=== PATIENT | male | born 1960 | race American Indian/Alaskan Native ===

== ENCOUNTER 2017-04-15 06:40 | Day surgery (SDC) | payer BC ==
[2017-04-14 07:22] VITALS: BMI 28.2
[2017-04-15 07:23] LABS: HEMOGLOBIN 12.9 gm/dL (14.0-18.0); MEAN CELL VOLUME 82.6 fL (80.0-105.0); MEAN CORPUSCULAR HEMOGLOBIN 28.1 pg (25.0-35.0); MEAN PLATELET VOLUME 11.9 fl (7.0-11.0); PLATELET COUNT 143 10^3/uL (120.0-450.0); RBC 4.59 10^6/uL (3.5-6.1); RED CELL DISTRIBUTION WIDTH 14.8 % (11.5-14.5); WHITE BLOOD COUNT 3.4 10^3/ul (4.5-11.0)
[2017-04-15 07:41] LABS: BLOOD UREA NITROGEN 15 mg/dL (7-21); CALCIUM 9.1 mg/dL (8.4-10.5); GFR AFRICAN-AMERICAN > 60; GFR NON-AFRICAN AMERICAN > 60; HDL CHOLESTEROL 28 mg/dL (29-60); INR 1.04 (0.93-1.08); PARTIAL THROMBOPLASTIN TIME 32.2 Seconds (23.7-30.8); PROTHROMBIN TIME 11.2 Seconds (9.9-11.8)
[2017-04-15 07:52] LABS: LDL CHOLESTEROL 108 mg/dL (0-129)
[2017-04-15] MEDS ORDERED: Lidocaine 2% Inj (20ml) ONE (09:00)
[2017-04-15] MEDS ORDERED: Iodixanol 320 MG/ML 200 ML BOTTLE IV ONE (09:01)
[2017-04-15] MEDS ORDERED: Iodixanol 320 MG/ML 100 ML BOTTLE IV ONE (09:01)
[2017-04-15] MEDS ORDERED: Midazolam 2 MG/2 ML VIAL ONE ×2 (09:11→09:21)
[2017-04-15] MEDS ORDERED: Iohexol 350mgl/ml 50 ML ONE (09:34)
[2017-04-15 10:03] LABS: BAND 1 % (0-2); EOSINOPHIL 1 % (0.0-3.0); LARGE PLATELETS PRESENT; LYMPHOCYTE 64 % (22.0-35.0); MONOCYTE 7 % (1.0-6.0); NEUTROPHIL 27 % (50.0-70.0); PLATELET ESTIMATE NORMAL (NORMAL)
[2017-04-15] MEDS ORDERED: Morphine 2 mg/ml ISec ONE (10:26)
--- NOTE | 2017-04-15 14:51 | HP ---
HISTORY OF PRESENT ILLNESS: I was called to the superintendent geophysical laboratory by Dr. Deni Shay to put this patient on my service. He is a 56-year-old -[place] man who is now on the cath table status post stent placement. He has a history of having stents and it is possible they were clogged. He had a positive stress test recently. He had history of shortness of breath, chest pain with activity, stents maybe clogged. He did have a cath today, they did the procedure, had some caths changed. PAST MEDICAL HISTORY: CAD, hyperlipidemia, hypertension, and arthritis. There is a family history of cancer in his mom. 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 SOCIAL HISTORY: He still smokes cigarettes. No alcohol. No drugs. He is having chest pain. REVIEW OF SYSTEMS: He has no acute vision changes. No acute hearing changes. No sore throat. He is having chest pain, shortness of breath. No abdominal pain. No nausea, vomiting, constipation, or diarrhea. He is not anxious, not depressed. No numbness or tingling. He is going to the bathroom okay. PHYSICAL EXAMINATION: VITAL SIGNS: He has 97.7 temperature, 88 pulse, 188/130 blood pressure, 18 respiratory rate, 99% O2 sat on room air. He is on hydralazine; I put him clonidine 0.1 twice a day. He might have Norvasc 5 mg added to that, we will see how he does. He is seen on the table. HEENT: His head is atraumatic and normocephalic. His extraocular muscles are intact. Pupils are equal and reactive to light. Throat is moist. NECK: Supple. HEART: Regular rate. LUNGS: Decreased breath sounds but clear to auscultation. ABDOMEN: Soft and nontender. Positive bowel sounds. EXTREMITIES: No edema. He has sleep flat for 6 hours status post cath. THYROID: Midline. SKIN: For the most part is intact. No acute bruising. Hopefully, he will continue to improve. He is here for CAD, stent placement, malignant hypertension. MEDICATIONS: He will be on medications clonidine 0.1 twice a day. He might need Norvasc tomorrow. Most probably, I could discharge him on Plavix, aspirin, and clonidine. LABORATORY DATA: His blood test is a 3.4 white count, 12.9 hemoglobin, 37.9 hematocrit with 143 platelets. INR is 1.04. He has 141 sodium, potassium 3.6, BUN 15, creatinine 1.1, GFR is greater than 60, sugar is 107, calcium is 9.1, triglycerides of 123, cholesterol is 171, HDL is 28. Case was discussed with Dr. Shay, the child day care center worker. He will be kept overnight at [facility]. If he does well, we will discharge him tomorrow. He will also be brought back in next Tuesday for 2 more stents and hopefully, he will do well and be compliant. Poncho Caruso DO
--- NOTE | 2017-04-15 15:47 | CARDCATH ---
PROCEDURE DATE: 04/15/2017 HISTORY: The patient is a 56-year-old male who suffers from hypertension, COPD and is completely noncompliant with his medications. He continues to smoke. Because of progressive angina and shortness of breath, the patient underwent a stress test which was abnormal. The cardiac catheterization was recommended. PROCEDURE: Left heart catheterization with coronary arteriography and left ventriculogram followed by PTCA and stent of multiple lesions in the RCA. The right femoral artery was cannulated with a 6-Mongolian sheath. There were no complications. FINDINGS ON CATHETERIZATION: Revealed a left ventricle that contracted normally. Estimated ejection fraction is 55-60%. His coronary anatomy revealed a right nondominant RCA. The RCA revealed a long 70% stenosis in the proximal portion, 90% stenosis in the midportion, and was diffusely diseased. Left main artery was unremarkable. The LAD revealed diffuse atherosclerosis throughout its coronary tree with a patent stent in the proximal portion. The two diagonal vessels which were moderate size diagonal vessels were diffusely diseased and had 90% lesions in it. Circumflex artery revealed a patent stent in its proximal portion with diffuse atherosclerosis. The patient was started on intravenous Angiomax. On the fluoroscopic guide, the guiding catheter and using a guide liner was placed in the RCA. Multiple drug-eluting stents were placed and deployed throughout the RCA with a good post PTCA and stent result with VENKAT III flow and no residual stenosis. Angio-Seal was used to close the femoral artery site. The patient tolerated the procedure well. After the procedure, the patient complained of chest discomfort which was not associated with EKG changes. The patient was transferred to the floor in stable condition. SUMMARY: The procedure was successful PTCA and stent of multiple critical lesions throughout the RCA with drug-eluting stents. Cardiac catheterization reveals patent stents in the LAD and circumflex artery with multiple critical lesions in 2 moderate-sized diagonal vessels. The left ventricle contracted normally. Given these findings, the patient will need to remain on aspirin indefinitely and Plavix for at least a year. We will bring him back in 1 week for PTCA and stent of the critical lesions and diagonal vessels. I have discussed with the patient about the need to stop smoking and the urgency to take medications as instructed. Deni Shay MD
--- NOTE | 2017-04-15 15:52 | CARD ---
APPROVED REPORT EKG Measurement Heart [id number] CA 128P36 [id number] <Conclusion> Normal sinus rhythm Possible Left atrial enlargement Left ventricular hypertrophy Prolonged QT Abnormal ECG
--- NOTE | 2017-04-15 15:59 | CARD ---
APPROVED REPORT EKG Measurement Heart [id number] VT 126P22 [id number] <Conclusion> Normal sinus rhythm Possible Left atrial enlargement Left ventricular hypertrophy Abnormal ECG
[2017-04-15 23:15] VITALS: RESP 20; O2SAT 100
--- NOTE | 2017-04-15 23:15 | CP.PCM.PN ---
Subjective - Date & Time of Evaluation Date of Evaluation: 04/15/17 Time of Evaluation: 23:15 - Subjective Subjective: S: Patient was seen at bedside. Tylenol 650 mg PO was ordered and given to patient before I examined patient. He has no complaints now. BP was 158/96 when nurse had called me. Medical record was reviewed. O: Last Vital Signs 3 Temp 98.6 F 04/15/17 23:27 Pulse 87 04/16/17 01:50 Resp 20 04/15/17 23:15 BP 158/96 H 04/15/17 23:15 Pulse Ox 100 04/15/17 23:15 Awake, alert , not in distress. LUNGS: Normal breathing pattern. When I asked a question , he moved in the bed but did not respond to my question. A:Headache. P:Tylenol 650 mg PO was given. Objective - Vital Signs/Intake and Output Vital Signs (last 24 hours): Temp Pulse Resp BP Pulse Ox 98 F 84 18 156/99 H 99 04/15/17 17:34 04/15/17 22:00 04/15/17 17:34 04/15/17 20:00 04/15/17 17:34 - Medications Medications: Current Medications Amlodipine Besylate (Norvasc) 5 mg PO DAILY [facility] Last Admin: 04/15/17 13:16 Dose: 5 mg Atorvastatin Calcium (Lipitor) 40 mg PO DIN [facility] Last Admin: 04/15/17 17:48 Dose: 40 mg Clonidine HCl (Catapres) 0.1 mg PO BID [facility] Last Admin: 04/15/17 17:48 Dose: 0.1 mg Metoprolol Succinate (Toprol Xl) 25 mg PO [facility] - Labs Labs: 04/15/17 07:00 04/15/17 07:00 PT 11.2 Seconds (9.9-11.8) 04/15/17 07:00 INR 1.04 (0.93-1.08) 04/15/17 07:00 APTT 32.2 Seconds (23.7-30.8) H 04/15/17 07:00
[2017-04-16 06:32] VITALS: TEMP 98.4
[2017-04-16 07:25] LABS: HEMOGLOBIN 12.8 gm/dL (14.0-18.0); MEAN CELL VOLUME 83.5 fL (80.0-105.0); MEAN CORPUSCULAR HEMOGLOBIN 28.1 pg (25.0-35.0); MEAN CORPUSCULAR HGB CONC 33.7 g/dl (31.0-37.0); MEAN PLATELET VOLUME 12.3 fl (7.0-11.0); RBC 4.55 10^6/uL (3.5-6.1); RED CELL DISTRIBUTION WIDTH 14.9 % (11.5-14.5); WHITE BLOOD COUNT 3.9 10^3/ul (4.5-11.0)
[2017-04-16] MEDS ORDERED: Metoprolol Succinate 25 mg XL Tab PO SCH (08:00)
[2017-04-16 08:02] LABS: ALB/GLOB RATIO 0.7 (1.1-1.8); ALBUMIN 3.9 g/dL (3.0-4.8); ALT/SGPT 19 U/L (7-56); AST/SGOT 35 U/L (15-59); BLOOD UREA NITROGEN 15 mg/dL (7-21); CALCIUM 9.1 mg/dL (8.4-10.5); GFR AFRICAN-AMERICAN > 60; GFR NON-AFRICAN AMERICAN > 60
[2017-04-16] MEDS ORDERED: Potassium Chloride 20 mEq ER Tab PO ONE (08:25)
[2017-04-16 08:54] VITALS: BP 151/81
[2017-04-16 12:24] VITALS: PULSE 94
--- NOTE | 2017-04-16 15:21 | PN ---
DATE OF SERVICE: 04/16/2017 COVERING DOCTOR: Dr. Deni Shay. REASON FOR THE CONSULTATION: History of CAD status post PTCA of RCA. SUBJECTIVE: The patient denies any chest pain, shortness of breath, any palpitation. PHYSICAL EXAMINATION GENERAL: Lying flat in the bed not in apparent distress. VITAL SIGNS: Temperature afebrile, heart rate 87, blood pressure 150/80. HEENT: PERRLA intact. NECK: Supple. No carotid bruits. No thyromegaly. CHEST: Clear to auscultation. HEART: S1 and S2, regular. ABDOMEN: Soft. EXTREMITIES: Clubbing and cyanosis negative. LABORATORY DATA: Blood workup as follows: WBC 3.9, hemoglobin 12.8, hematocrit 38.9, platelet count 149. Chemistry shows sodium 139, potassium 3.5, chloride 105, *------*, anion gap of 14, creatinine 1.1. IMPRESSION: A 56-year-old male with the past medical history significant for coronary artery disease status post percutaneous transluminal coronary angioplasty in the past. *------* Compliant with medication. Underwent stress test, abnormal. Yesterday, the patient went cardiac catheterization with stent of right coronary artery. The Patient is going to be scheduled for staged percutaneous transluminal coronary angioplasty of left anterior descending coronary artery on Tuesday. RECOMMENDATION: Continue aspirin, continue Plavix, supplement potassium is low, continue clonidine, continue amlodipine, emphases made on the patient for aspirin daily and Plavix 75 mg daily and compliance with medication. Follow with Dr. Shay upon discharge and the patient will be rescheduled on Tuesday for PTCA. The Patient agrees that he will take the medication. Feliz Palmer MD
--- NOTE | 2017-04-17 05:49 | DS ---
HISTORY OF PRESENT ILLNESS: I saw Madhav now in bed, resting comfortably. He is ready to go home today. His cardiac cath yesterday was done with Dr. Shay. He has also very elevated hypertension. He is here for CAD, shortness of breath, high cholesterol and hypertension. He is also a smoker. We discussed not smoking ever again. He heard me and he understands. MEDICATIONS: He is going to go home on clonidine 0.1 mg twice a day, aspirin 81 mg daily, Lipitor 40 mg daily, Norvasc 5 mg daily, Plavix 75 mg daily, and Toprol XL 25 mg daily. PHYSICAL EXAMINATION: VITAL SIGNS: His vital signs are 98.4 temperature, 87 pulse, 151/81 blood pressure, 21 respiratory rate, and 100% O2 sat on room air. HEENT: His head is atraumatic and normocephalic. LUNGS: Clear to auscultation. ABDOMEN: Soft. EXTREMITIES: No edema. LABORATORY DATA: He has had 3.9 white count, 12.8 hemoglobin and 38 hematocrit with 149 platelets. He has 139 sodium, potassium of 3.5, BUN of 15, and creatinine of 1.1, GFR is greater than 60, sugar is 102, calcium is 9.1, and total bilirubin is 1.1. AST is 35 and ALT is 19. Alkaline phosphatase is 128, total protein is 9.3, albumin is 3.9, and globulin is 5.4. DISCHARGE INSTRUCTIONS: He is also going to get a banana before he leaves here today, for his potassium he will need a banana every day. We will recheck his potassium in the next week, as we see him for his next cath and he is discharged as per Dr. Shay's order. Poncho Caruso DO MTDD
== END 2017-04-16 12:46 | disposition home or self-care (01) ==
LOC: CATH 06:40 → 2RSO 10:55 → CATH 04-16 12:46
PROVIDERS: ATTEND Family Medicine
DX: I25.119 Atherosclerotic heart disease of native coronary artery with unspecified angina pectoris (principal); I10 Essential (primary) hypertension; J44.9 Chronic obstructive pulmonary disease, unspecified; F17.210 Nicotine dependence, cigarettes, uncomplicated; R51 Headache; M19.90 Unspecified osteoarthritis, unspecified site; E78.5 Hyperlipidemia, unspecified; Z91.14 Patient's other noncompliance with medication regimen; Z95.5 Presence of coronary angioplasty implant and graft
CPT/HCPCS: 36415 ×2; 80048; 80053; 80061; 85025; 85027; 85610; 85730; 86850; 86900; 93005; 93458; 99152; 99153; C1725 ×3; C1760; C1769 ×2; C1874 ×4; C1887 ×2; C2629; C9600; J0360; J0583; J1644; J2250; J2270; J3010; J7030; J7040; Q9967 ×2

== ENCOUNTER 2017-04-22 06:08 | Day surgery (SDC) | payer BC ==
[2017-04-14 07:22] VITALS: BMI 28.2
[2017-04-22] MEDS ORDERED: Lidocaine 2% Inj (20ml) ONE (06:27)
[2017-04-22] MEDS ORDERED: Iohexol 350mgl/ml 50 ML ONE (06:28)
[2017-04-22] MEDS ORDERED: Iodixanol 320 MG/ML 100 ML BOTTLE IV ONE (06:28)
[2017-04-22] MEDS ORDERED: Nitroglycerin 50mg in D5W 0 MG/0 ML BOTTLE IV ONE (06:28)
[2017-04-22] MEDS ORDERED: Iodixanol 320 MG/ML 200 ML BOTTLE IV ONE (06:28)
[2017-04-22] MEDS ORDERED: Phenylephrine 10 mg/ml Inj ONE (06:28)
[2017-04-22 06:52] LABS: BASO # 0.02 K/mm3 (0.0-2.0); BASO % 0.6 % (0.0-3.0); EOS % 1.1 % (1.5-5.0); GRAN # 1.61 (1.4-6.5); GRAN % 44.5 % (50.0-68.0); HEMOGLOBIN 12.3 gm/dL (14.0-18.0); LYMPH # 1.6 (1.2-3.4); LYMPH % 45.2 % (22.0-35.0); MEAN CELL VOLUME 83.7 fL (80.0-105.0); MEAN CORPUSCULAR HEMOGLOBIN 28.3 pg (25.0-35.0); MEAN CORPUSCULAR HGB CONC 33.8 g/dl (31.0-37.0); MEAN PLATELET VOLUME 12.5 fl (7.0-11.0); MONO # 0.3 (0.1-0.6); MONO % 8.6 % (1.0-6.0); PLATELET COUNT 150 10^3/uL (120.0-450.0); RBC 4.35 10^6/uL (3.5-6.1); RED CELL DISTRIBUTION WIDTH 14.7 % (11.5-14.5); WHITE BLOOD COUNT 3.6 10^3/ul (4.5-11.0)
[2017-04-22 06:54] LABS: INR 1.06 (0.93-1.08); PARTIAL THROMBOPLASTIN TIME 29.9 Seconds (23.7-30.8); PROTHROMBIN TIME 11.5 Seconds (9.9-11.8)
[2017-04-22] MEDS ORDERED: Midazolam 2 MG/2 ML VIAL ONE ×2 (07:00→07:51)
[2017-04-22 07:09] LABS: BLOOD UREA NITROGEN 13 mg/dL (7-21); CALCIUM 9.5 mg/dL (8.4-10.5); GFR AFRICAN-AMERICAN > 60; GFR NON-AFRICAN AMERICAN > 60
[2017-04-22] MEDS ORDERED: Potassium Chloride 20 mEq ER Tab PO ONE ×2 (07:35→08:54)
[2017-04-22] MEDS ORDERED: Sodium Chloride 0.9% 1,000 ML IV SCH (09:00)
[2017-04-22] MEDS: Metoprolol Succinate 25 mg XL Tab PO SCH (10:04)
--- NOTE | 2017-04-22 12:03 | CARD ---
APPROVED REPORT EKG Measurement Heart [id number] ND 130P9 [id number] <Conclusion> Normal sinus rhythm Voltage criteria for left ventricular hypertrophy Prolonged QT Abnormal ECG
--- NOTE | 2017-04-22 16:21 | CARDCATH ---
PROCEDURE DATE: HISTORY: The patient is a 56-year-old male, who presented with unstable angina secondary to multivessel CAD. The patient underwent successful PTCA and stents of multiple lesions in the RCA last week. He presents for PTCA and stent of two critically stenosed moderate size diagonal vessels of the LAD. The left femoral artery was cannulated with a 6-Uzbek sheath. There were no complications. Findings on catheterization revealed a right dominant circulation. The stent in the RCA was found to be patent with a 50% stenosis in the mid to/distal portion which was there prior. The LAD revealed diffuse atherosclerosis. The first diagonal vessel was a moderate size vessel with a 99% stenosis. The second diagonal vessel had a long 99% stenosis in its proximal portion. The patient was started on Angiomax. Using a 0.014 ATW wire as well as a 2.0 balloon followed by two drug-eluting stents, the two diagonal vessels were angioplastied and stented with excellent results. The first diagonal vessel had an 8 mm lesion. The second diagonal vessel had a 22 mm length lesion. The first diagonal was stented with a 12 mm drug-eluting stent. The second diagonal vessel was stented with a 22 mm drug-eluting stent. Repeat coronary arteriography reveals an excellent result with no residual stenosis and VENKAT III flow. Angio-Seal was used to close the femoral artery site. The patient tolerated the procedure well. In summary, the procedure was successful with PTCA and stent of two moderate-sized diagonal vessels off the LAD with drug-eluting stents. Coronary arteriography revealed patent stents in the RCA that was placed last week with a 50% residual stenosis in the midportion of the RCA. COPD, PVD, hypertension, hypercholesterolemia. Given these findings, the patient continues to smoke, but is now compliant with his medications. We will continue with his cardiac risk reduction program with emphasis on cessation of smoking. He will remain on aspirin and Plavix. Deni Shay MD
[2017-04-22 18:15] VITALS: RESP 18
--- NOTE | 2017-04-22 19:04 | HP ---
HISTORY OF PRESENT ILLNESS: I saw the patient, status post cath with Dr. Shay this morning. He had 2 stents placed this morning. He is also still smoking and that really being compliant on the outpatient. This is the second cath in a week. I was called to do the history and physical, put him on my service. He is a 56-year-old man, who is status post 2 more stents placed. He has history of shortness of breath and chest pain, and now he is resting comfortably in bed. He will watched overnight and discharged tomorrow home. PAST MEDICAL HISTORY: CAD, hyperlipidemia, hypertension, arthritis. FAMILY HISTORY: He has cancer with his mom. He has so far had PTCA with stents x3 within the last 2 years, now he has had 3 more stents in the past week. PAST SOCIAL HISTORY: He still smokes cigarettes. No alcohol, no drugs. He is having chest pain up until a week ago and now he is just noncompliant. He has no acute vision changes or hearing changes. No sore throat. Chest pains are on and off and much better since the last stent, less short of breath although he is still smoking. No abdominal pain. No nausea, vomiting, constipation, or diarrhea. He is not anxious, not depressed. He is comfortable. No numbness or tingling. He is moving his bowels well and he is walking well. PHYSICAL EXAMINATION VITAL SIGNS: He has 98.1 temperature, 93 pulse, 156/98 blood pressure. I will put him back on his medications. 18 respiratory rate, 98% O2 sat on room air. HEENT: Head is atraumatic, normocephalic. Extraocular muscles are intact. Pupils equal and reactive to light and accommodation. Throat is moist. NECK: Supple. HEART: Regular rate. LUNGS: Decreased breath sounds,but clear to auscultation bilaterally. ABDOMEN: Soft, nontender. Positive bowel sounds. No guarding, no rebound. No CVA tenderness. EXTREMITIES: No edema. 5 to 6 hours status post cath. LYMPHATICS: Thyroid midline. No palpable or appreciative lymphadenopathy and most part is intact. He is here for cardiac catheterization for 2 stents, CAD, he has malignant hypertension. I will place him back on his medication. I will give him clonidine, Ecotrin, potassium replacement, Lipitor, Norvasc, Plavix, and Toprol. He had a 143 sodium, potassium 3.5. I will put him on potassium 20 mEq 1 tablet today. BUN 13, creatinine 0.9, GFR is greater than 60, sugar is 113, calcium is 9.5, INR is 1.06. A 3.6 white count, 12.3 hemoglobin, 36.4 hematocrit with 160 platelets. He will be watched overnight, awaited 5 to 6 hours, hopefully do well, become compliant, quit smoking. I discussed that with him already. I will discuss with him again tomorrow, and hopefully, we will discharge him with these medications. Poncho Caruso DO MTDD
[2017-04-23 06:13] VITALS: TEMP 98.4
[2017-04-23 07:42] LABS: BASO # 0.03 K/mm3 (0.0-2.0); BASO % 0.8 % (0.0-3.0); EOS # 0.1 (0.0-0.7); GRAN # 1.61 (1.4-6.5); GRAN % 40.8 % (50.0-68.0); HEMOGLOBIN 11.4 gm/dL (14.0-18.0); LYMPH # 1.9 (1.2-3.4); LYMPH % 47.3 % (22.0-35.0); MEAN CELL VOLUME 84.4 fL (80.0-105.0); MEAN CORPUSCULAR HEMOGLOBIN 27.4 pg (25.0-35.0); MEAN CORPUSCULAR HGB CONC 32.5 g/dl (31.0-37.0); MEAN PLATELET VOLUME 12.8 fl (7.0-11.0); MONO # 0.4 (0.1-0.6); MONO % 9.1 % (1.0-6.0); PLATELET COUNT 129 10^3/uL (120.0-450.0); RBC 4.16 10^6/uL (3.5-6.1); RED CELL DISTRIBUTION WIDTH 14.9 % (11.5-14.5)
[2017-04-23 07:51] LABS: ALB/GLOB RATIO 0.7 (1.1-1.8); ALBUMIN 3.8 g/dL (3.0-4.8); ALT/SGPT 20 U/L (7-56); AST/SGOT 25 U/L (15-59); BLOOD UREA NITROGEN 16 mg/dL (7-21); CALCIUM 9.3 mg/dL (8.4-10.5); GFR AFRICAN-AMERICAN > 60; GFR NON-AFRICAN AMERICAN > 60
[2017-04-23 09:04] VITALS: BP 127/70; PULSE 73; O2SAT 98
[2017-04-23] MEDS: Metoprolol Succinate 25 mg XL Tab PO SCH (10:39)
--- NOTE | 2017-04-23 11:36 | CARD ---
APPROVED REPORT EKG Measurement Heart [id number] DE 130P15 [id number] <Conclusion> Normal sinus rhythm Voltage criteria for left ventricular hypertrophy Abnormal ECG
--- NOTE | 2017-04-23 18:51 | PN ---
DATE: 04/23/2017 CARDIOLOGY FOLLOWUP SUBJECTIVE: The patient is chest pain free. PHYSICAL EXAMINATION VITAL SIGNS: Blood pressure is 116/75, heart rate is in the 70s. NECK: Negative JVD. LUNGS: Without rales. HEART: S1 and S2. EXTREMITIES: Without edema. The left groin site is stable. LABORATORY DATA: Creatinine is normal. Hemoglobin is 11.4. IMPRESSION: 1. Stable post percutaneous transluminal coronary angioplasty and stent of 2 lesions in the diagonal vessels. 2. History of multivessel coronary artery disease with percutaneous transluminal coronary angioplasty and stent of an right coronary artery 1 week ago. 3. Chronic obstructive pulmonary disease. 4. Hypercholesterolemia. 5. Hypertension. PLAN: Given these findings, the patient can be discharged today from a cardiac perspective. I have discussed with the patient about the needs to stop smoking. He finally realizes the dangers of smoking given his multivessel CAD. Deni Shay MD
--- NOTE | 2017-04-24 04:25 | DS ---
HISTORY OF PRESENT ILLNESS: I saw Lineromaine resting comfortably in bed. He had a cardiac cath with two stents placed with Dr. Shay yesterday. He is in good spirits. He would like to be discharged today. MEDICATIONS AT HOME: He has Norvasc 5 mg a day, Toprol 25 mg a day, Plavix 75 mg a day, Catapres 0.1 mg twice a day, Lipitor 40 mg daily and Ecotrin 81 mg a day. He is going to follow up as an outpatient with his primary care doctor and follow with Dr. Shay. PHYSICAL EXAMINATION: VITAL SIGNS: He has 98.4 temperature, 74 pulse, 116/75 blood pressure, 18 respiratory rate, 100% O2 saturation on room air. HEENT: Head is atraumatic, normocephalic. HEART: Regular rate. LUNGS: Clear to auscultation. ABDOMEN: Soft. EXTREMITIES: No edema. LABORATORY DATA: He has white count, 11.4 hemoglobin, 35.9 hematocrit with a 129 platelets. He has a 141 sodium, potassium 3.9, BUN 16, creatinine 1.0, GFR greater than 60, sugar is 106, calcium is 9.3, total bilirubin is 0.6, AST 75, ALT 29, alkaline phosphatase 115, total protein is 8.8, albumin is 3.8. ASSESSMENT AND PLAN: He will be discharged today to home. He will follow up on the outpatient. He is here for CAD. He is also a smoker. We discussed quitting smoking at length. He understands it and will do the best he can. Poncho Caruso DO MTDD
== END 2017-04-23 12:02 | disposition home or self-care (01) ==
LOC: CATH 06:08 → 2RSO 08:56 → CATH 04-23 12:02
PROVIDERS: ATTEND Family Medicine
DX: I25.110 Atherosclerotic heart disease of native coronary artery with unstable angina pectoris (principal); E78.00 Pure hypercholesterolemia, unspecified; I11.9 Hypertensive heart disease without heart failure; E78.5 Hyperlipidemia, unspecified; F17.210 Nicotine dependence, cigarettes, uncomplicated; I51.7 Cardiomegaly; I73.9 Peripheral vascular disease, unspecified; J44.9 Chronic obstructive pulmonary disease, unspecified; M19.90 Unspecified osteoarthritis, unspecified site; Z79.82 Long term (current) use of aspirin; Z95.5 Presence of coronary angioplasty implant and graft
CPT/HCPCS: 36415 ×2; 80048; 80053; 82948; 85025 ×2; 85576; 85610; 85730; 86850; 86900; 93005 ×2; 93454; 99152; C1725; C1760; C1769 ×2; C1874 ×2; C1887; C2629; C9600; J0583; J1644; J2250; J3010; J7040 ×2; Q9967 ×2

== ENCOUNTER 2017-06-11 09:34 | Inpatient (IN) | payer BC ==
--- NOTE | 2017-06-11 09:57 | ED PDOC ---
Arrival/HPI - General Chief Complaint: Fever Time Seen by Provider: 06/11/17 09:35 Historian: Patient, Partner (Fiance) - History of Present Illness Narrative History of Present Illness (Text): 06/11/17 09:35 Madhav Cabrera is a 56 year old male, whose past medical history includes coronary artery disease with four stents, history of smoking, presents with fiance who states that patient has been running a fever "for a few days" and "has not been acting like himself" for 3 days. Fiance states that patient has not been eating or drinking, has not gotten out of bed, and seems to be "not acting like he usually does". Patient reportedly has been "laying in bed for the past few days". Patient denies chest pain, denies cough, denies abdominal pain. Denies dark or discolored urine. Denies leg pain or swelling. Fiance states that he "seems to be belching alot". Time/Duration: < week (3 days ) Symptom Onset: Gradual Symptom Course: Unchanged Context: Home Past Medical History - Provider Review Nursing Documentation Reviewed: Yes - Infectious Disease Hx of Infectious Diseases: None - Cardiac Hx Hypertension: Yes Hx Pacemaker: No Other/Comment: cardiac stent - Neurological Hx Paralysis: No - Hematological/Oncological Hx Blood Transfusions: No - Musculoskeletal/Rheumatological Hx Musculoskeletal Disorders: Yes - Psychiatric Hx Emotional Abuse: No Hx Physical Abuse: No Hx Substance Use: No - Anesthesia Hx Anesthesia Reactions: Yes ("I WAS OVERSEDATED") Hx Malignant Hyperthermia: No - Suicidal Assessment Feels Threatened In Home Enviroment: No Family/Social History - Physician Review Nursing Documentation Reviewed: Yes Family/Social History: No Known Family HX Smoking Status: Unknown If Ever Smoked Hx Alcohol Use: No Hx Substance Use: No Allergies/Home Meds Allergies/Adverse Reactions: Allergies No Known Allergies Allergy (Verified 06/11/17 14:05) Home Medications: Home Meds Medication Instructions Recorded Confirmed Aspirin [Ecotrin] 81 mg PO DAILY 04/14/17 06/11/17 Clopidogrel [Plavix] 75 mg PO DAILY 04/14/17 06/11/17 Amoxicillin/Clavulanate [Augmentin 1 tab PO Q12 06/11/17 06/11/17 875 MG-125 MG] Review of Systems - Review of Systems Systems not reviewed;Unavailable: Acuity of Condition Constitutional: Fatigue, Fevers. absent: Weight Change Eyes: absent: Vision Changes, Eye Pain ENT: Epistaxis. absent: Hearing Changes Respiratory: absent: SOB, Cough Cardiovascular: absent: Chest Pain, Edema, Calf Pain, MILLER Gastrointestinal: Appetite Changes. absent: Abdominal Pain, Constipation, Diarrhea, Vomiting, Hematochezia Genitourinary Male: absent: Dysuria, Frequency, Urinary Output Changes Musculoskeletal: absent: Arthralgias, Neck Pain Skin: absent: Pruritis Neurological: absent: Headache, Dizziness Hemo/Lymphatic: absent: Easy Bleeding Psychiatric: absent: Depression Physical Exam - Physical Exam Narrative Physical Exam (Text): Head: Atraumatic. Normocephalic. No facial bony tenderness. Eyes: PERRL. EOMI. Conjunctivae are not pale. No pain with eye movements. Visual acuity grossly intact. ENT: Mucous membranes are dry and tacky. No pharyngeal erythema or abscess. No drooling. No stridor. Neck: Supple. Full ROM. No JVD. No lymphadenopathy. Able to flex and extend neck with no pain. No meningeal signs. No soft tissue swelling. Cardiovascular: Tachycardic with systolic murmur. Distal pulses intact. Pulmonary/Chest: No evidence of respiratory distress. Clear to auscultation bilaterally. No wheezing, rales or rhonchi. Abdominal: Distended but soft. Focal tenderness to right upper quadrant. No pulsatile masses. NO rlq pain. No rebound or guarding. No incarcerated hernias noted. Rectal: brown, heme negative stool with no active bleeding Back: No CVA tenderness. Extremities: No edema. No cyanosis. No clubbing. Full range of motion in all extremities. No calf tenderness. Distal pulses palpable. No obvious bony pain with passive ROM or hip/knee/ankle. No pain to elbow/shoulder/wrist with ROM. Skin: Skin is warm. No petechiae. No purpura. No ecchymosis or lacerations. Neurological: Sleepy but arousable with verbal stimuli and answers questions appropriately. Oriented to person, place, time, and situation. Slow speech. No obvious facial droop. Has no focal weakness noted is able to lift up both arms and legs, but appears generally weak. Cranial nerves grossly intact. Reflexes intact. No meningeal signs.. Psychiatric: Poor eye contact. Sleepy. Denies suicidal or homicidal ideation. Vital Signs Reviewed: Yes Vital Signs Temp Pulse Resp BP Pulse Ox 06/11/17 13:00 112 H 24 139/69 97 06/11/17 12:45 115 H 24 160/69 H 97 06/11/17 12:30 116 H 24 150/72 97 06/11/17 12:15 114 H 24 154/79 H 97 06/11/17 12:06 112 H 24 136/66 97 06/11/17 11:45 118 H 20 137/85 97 06/11/17 11:37 112 H 20 153/82 H 98 06/11/17 11:22 118 H 20 137/85 99 06/11/17 11:10 123 H 20 153/82 H 97 06/11/17 10:15 101.2 F H 06/11/17 10:02 100.4 F H 123 H 20 146/129 H 97 06/11/17 09:59 101.2 F H 06/11/17 09:45 132 H 20 146/129 H 99 Temperature: Febrile Blood Pressure: Hypertensive Pulse: Tachycardic Respiratory Rate: Tachypneic Appearance: Positive for: Ill-Appearing Mental Status: Positive for: Alert and Oriented X 3 Medical Decision Making ED Course and Treatment: 06/11/17 09:40 Impression: 56 yo male with past cardiac history, presents with family for "fever", "not acting himself" and "very weak". Patient is arousable, answers questions, denies any chest pain or shortness of breath, denies abdominal pain on history. Differential Diagnosis included but are not limited to: sepsis, pneumonia, intraabdominal infection, dehydration, neurological disease Plan: -- EKG -- Chest X-ray -- Abdomen and Pelvis CT w/o contrast -- Head CT w/o contrast -- ABG and VBG -- Blood culture -- Urine culture and Urinalysis -- IV fluids -- Reassess and disposition Progress Notes: Patient's history is supplemented by luz at bedside. Luz states she works the shift superintendent but notes over the past 3 days the patient has been "feverish" which she reports is "feeling warm". She also notes that he is "very tired" and "not talking like he normally does" and "has been laying in bed for the past 2- 3 days". There is no report of recent travel. There is no report of new exposures or ingestions. On initial examination, patient is febrile, tachycardic. He appears very dehydrated on exam with dry cracked lips and dry mucous membranes. He is sleepy but arousable and answers questions appropriately and is oriented when given verbal questions, but then falls back to sleep after questions. No respiratory distress is noted. He denies shortness of breath. He denies chest pain. He recently had cardiac cath, denies chest pain or acute leg pain or swelling. No rash. He denies abdominal pain, although on exam he has focal RUQ pain. Fiance states he hasn't been eating as much and has been "belching". No melena noted. He is tachycardic, I suspect initially from dehydration and from fever. IV fluid bolus ordered 30ml/kg as patient with exam consistent with sepsis on initial evaluation. After iv fluids, he appears more interactive, is less tachycardic. Chest xray with left lower lobe infiltrate on examination. Given history of AMS as per luz, clinical presentation, I ordered legionella studies and ordered iv levaquin for patient in ED. LFTs elevated. Continued serial exams and persistent RUQ pain. CT ordered as patient with right sided abdominal pain. Abnormal CT findings reviewed with patient, fiance and family. I discussed abnormal lung findings, but also elevated LFTs and abdominal pain. Severity of illness reviewed and need for specialty evaluation including kiss setter hand as well as infectious disease and other consultants. CPK extremely elevated, although patient does have urine output and over 3 liters ordered in the ED, will continue hydration in ICU setting to monitor urine output and renal function. Initial troponin unremarkable. He continues to deny chest pain. Patient on re-exam remains alert, answering questions, no focal weaknesses noted. No meningeal signs. I reviewed findings with Dr. Lee Caruso, patient's PMD, and consulted kiss setter hand due to patient's abnormal imaging studies, elevated cr, rhabdo, in context of fever and possible pneumonia. The lung findings were reviewed with patient and fiance, he denies any history of cough or shortness of breath. There reportedly is prior history of smoking. Will continue iv fluids, and antibiotics. Patient evaluated in ED by kiss setter hand. Labs reviewed. Will continue to monitor urine output given rhabdo. Care turned over to ICU team at 13:00. Patient admitted to ICU. Patient and fiance updated with treatment plan and abnormal findings. Legionella result became available when patient already in ICU. Results were communicated directly to ICU, they are aware of positive Legionella tests. Case was discussed with infectious disease, Dr. Angulo. Dr. Caruso updated with Legionella result. - Critical Care Critical Care Minutes: 45 minutes - Lab Interpretations Microbiology Results: Microbiology Results 06/11/17 09:45 Blood Blood Culture - Preliminary NO GROWTH AFTER 24 HOURS 06/11/17 09:45 Blood Blood Culture - Preliminary NO GROWTH AFTER 24 HOURS Lab Results: 06/11/17 09:45 06/11/17 09:45 Lab Results 06/11/17 12:37: Ur L.pneumophila Ag Positive H 06/11/17 11:15: pCO2 26 L, pO2 67.0 L, HCO3 18.5 L, ABG pH 7.46 H, ABG Total CO2 19.3 L, ABG O2 Saturation 96.4, ABG Base Excess -3.8 L, ABG Potassium 2.8 L , Sodium 139.0, Chloride 112.0 H, Glucose 122 H, Lactate 1.5, FiO2 21.0, Arterial Blood Potassium 2.8 L 06/11/17 10:31: Urine Color Yellow, Urine Appearance Clear, Urine pH 6.0, Ur Specific Mayer >= 1.030, Urine Protein >=300 H, Urine Glucose (UA) Negative, Urine Ketones Negative, Urine Blood Large H, Urine Nitrate Negative, Urine Bilirubin Small H, Urine Urobilinogen 2.0 H, Ur Leukocyte Esterase Negative, Urine RBC 1 - 3, Urine WBC 0 - 2, Ur Epithelial Cells 0 - 2, Hyaline Casts 0 - 2 , Coarse Granular Casts Small H 06/11/17 09:45: Sodium 140, Chloride 102, Potassium 3.6, Carbon Dioxide 21, Anion Gap 21 H, BUN 40 H, Creatinine 2.1 H, Est GFR ( Amer) 39, Est GFR ( Non-Af Amer) 33, Random Glucose 149 H, Calcium 8.8, Phosphorus 2.4 L, Magnesium 2.5 H, Total Bilirubin 0.9, AST 560 H, ALT 67 H, Alkaline Phosphatase 135 H, Lactate Dehydrogenase 4970 H, Total Creatine Kinase 67923 H, CK-MB (CK-2) 7.4 H , CK-MB (CK-2) % 0.0 L, Troponin I 0.03, NT-Pro-B Natriuret Pep 798 H, Total Protein 9.3 H, Albumin 3.8, Globulin 5.5, Albumin/Globulin Ratio 0.7 L, Amylase 108, Lipase 287 06/11/17 09:45: pO2 51, VBG pH 7.51 H, VBG pCO2 27.0 L, VBG HCO3 21.5, VBG Total CO2 22.3, VBG O2 Sat (Calc) 91.4 H, VBG Base Excess -0.3 L, VBG Potassium 3.8, Sodium 136.0, Chloride 103.0, Glucose 152 H, Lactate 2.8 H, FiO2 21.0, Venous Blood Potassium 3.8 06/11/17 09:45: PT 12.0 H, INR 1.11 H, APTT 38.1 H 06/11/17 09:45: WBC 7.3 D, RBC 4.24, Hgb 11.8 L, Hct 34.6 L, MCV 81.6, MCH 27.8 , MCHC 34.1, RDW 15.6 H, Plt Count 126, Gran % 83.1 H, Lymph % (Auto) 11.2 L, [place] % (Auto) 4.4, Eos % (Auto) 1.2 L, Baso % (Auto) 0.1, Gran # 6.02, Lymph # 0.8 L, [place] # 0.3, Eos # 0.1, Baso # 0.01 I have reviewed the lab results: Yes - RAD Interpretation Radiology Orders: 06/11/17 09:52 CHEST PORTABLE [RAD] Stat 06/11/17 09:55 ABD & PELVIS W/O PO OR IV CONT [CT] Stat HEAD W/O CONTRAST [CT] Stat Manager Administrative Services: Radiologist - EKG Interpretation Interpreted by ED Physician: Yes Type: 12 lead EKG - Medication Orders Current Medication Orders: Acetaminophen (Tylenol 325mg Tab) 650 mg PO Q6H PRN PRN Reason: Temperature Last Admin: 06/12/17 08:22 Dose: 650 mg Re-Assess: [facility] Pain/Vitals Document 06/12/17 09:22 RAMOM (Rec: 06/12/17 11:[address]) Pain Reassessment Is This A Pain ReAssessment? No Sleep Is patient sleeping during reassessment? No Presence of Pain Presence of Pain No Vitals Temperature (97.6 F-99.6 F) 100.4 F Temperature Source Rectal Aspirin (Ecotrin) 81 mg PO DAILY [facility] Last Admin: 06/12/17 09:23 Dose: 81 mg Clopidogrel Bisulfate (Plavix) 75 mg PO DAILY [facility] Last Admin: 06/12/17 09:22 Dose: 75 mg Heparin Sodium (Porcine) (Heparin) 5,000 units SC Q12 RENE PRN Reason: Protocol Last Admin: 06/12/17 09:23 Dose: 5,000 units Vancomycin HCl (Vancomycin 1gm) 1 gm in 250 mls @ 167 mls/hr IVPB DAILY RENE PRN Reason: Protocol Last Admin: 06/12/17 09:23 Dose: 167 mls/hr Levofloxacin/Dextrose (Levaquin 750mg) 750 mg in 150 mls @ 100 mls/hr IVPB DAILY [facility] Stop: 06/26/17 10:01 Last Admin: 06/12/17 09:25 Dose: 100 mls/hr Lactated Ringer's (Lactated Ringer's) 1,000 mls @ 125 mls/hr IV .Q8H [facility] Last Admin: 06/12/17 11:02 Dose: 125 mls/hr Metoprolol Succinate (Toprol Xl) 25 mg PO DAILY [facility] Last Admin: 06/12/17 09:22 Dose: 25 mg Pantoprazole Sodium (Protonix Ec Tab) 40 mg PO 0600 [facility] Last Admin: 06/12/17 05:00 Dose: 40 mg Discontinued Medications Acetaminophen (Tylenol 650 Mg Supp) 650 mg RC STAT STA Stop: 06/11/17 10:00 Last Admin: 06/11/17 09:59 Dose: 650 mg Sodium Chloride 2,330 ml/ IV (SUPPLIES) 2,330 mls @ 4,664.76 mls/hr IV ONCE ONE PRN Reason: 60 ML/KG/HR Stop: 06/11/17 09:53 Last Admin: 06/11/17 10:19 Dose: 4,664.76 mls/hr Piperacillin Sod/Tazobactam Sod (Zosyn 2.25 Gm In 0.9% 100 Ml) 2.25 gm in 100 mls @ 100 mls/hr IVPB STAT STA PRN Reason: Protocol Stop: 06/11/17 11:48 Last Admin: 06/11/17 11:06 Dose: 100 mls/hr Levofloxacin/Dextrose (Levaquin 750mg) 750 mg in 150 mls @ 100 mls/hr IVPB STAT STA Stop: 06/11/17 13:50 Last Admin: 06/11/17 12:25 Dose: 100 mls/hr Sodium Chloride (Sodium Chloride 0.9%) 1,000 mls @ 1,000 mls/hr IV .Q1H STA Stop: 06/11/17 13:50 Last Admin: 06/11/17 13:04 Dose: 1,000 mls/hr Piperacillin Sod/Tazobactam Sod (Zosyn 3.375 In Ns 100ml) 100 mls @ 200 mls/hr IVPB Q8H RENE PRN Reason: Protocol Stop: 06/11/17 22:44 Last Admin: 06/11/17 14:37 Dose: Sodium Chloride (Sodium Chloride 0.9%) 100 mls @ 150 mls/hr IV .Q40M [facility]ENE Last Admin: 06/11/17 14:45 Dose: 150 mls/hr Sodium Chloride (Sodium Chloride 0.9%) 1,000 mls @ 175 mls/hr IV .Q5H43M [facility] Last Admin: 06/12/17 04:56 Dose: 175 mls/hr Potassium Chloride (Potassium Chloride 10 Meq/100 Ml) 10 meq in 100 mls @ 100 mls/hr IVPB ONCE ONE Stop: 06/12/17 10:24 Last Admin: 06/12/17 09:55 Dose: Pneumococcal Polyvalent Vaccine (Pneumovax 23 Vaccine) 0.5 ml IM .ONCE ONE Stop: 06/11/17 16:02 Potassium Chloride (K-Dur 20 Meq Er Tab) 40 meq PO STAT STA Stop: 06/12/17 07:32 Last Admin: 06/12/17 08:22 Dose: 40 meq - Scribe Statement The provider has reviewed the documentation as recorded by the Franciscaibsonya Putnam Provider Scribe Attestation: All medical record entries made by the Scribe were at my direction and personally dictated by me. I have reviewed the chart and agree that the record accurately reflects my personal performance of the history, physical exam, medical decision making, and the department course for this patient. I have also personally directed, reviewed, and agree with the discharge instructions and disposition. Disposition/Present on Arrival - Present on Arrival Any Indicators Present on Arrival: No History of DVT/PE: No History of Uncontrolled Diabetes: No Urinary Catheter: No History of Decub. Ulcer: No History Surgical Site Infection Following: None - Disposition Have Diagnosis and Disposition been Completed?: Yes Diagnosis: Fever, Sepsis, Rhabdomyolysis, Dehydration, Renal insufficiency, Fatigue, Abdominal pain, Elevated liver enzymes, Pneumonia Disposition: HOSPITALIZED Disposition Time: 10:30 Patient Plan: Admission, ICU Patient Problems: Current Active Problems Problem Status Onset Abdominal pain Acute Dehydration Acute Elevated liver enzymes Acute Fatigue Acute Fever Acute Pneumonia Acute Renal insufficiency Acute Rhabdomyolysis Acute Sepsis Acute Condition: CRITICAL
[2017-06-11 10:28] LABS: BASO # 0.01 K/mm3 (0.0-2.0); BASO % 0.1 % (0.0-3.0); EOS # 0.1 (0.0-0.7); EOS % 1.2 % (1.5-5.0); GRAN # 6.02 (1.4-6.5); GRAN % 83.1 % (50.0-68.0); HEMATOCRIT 34.6 % (42.0-52.0); LYMPH # 0.8 (1.2-3.4); LYMPH % 11.2 % (22.0-35.0); MEAN CELL VOLUME 81.6 fl (80.0-105.0); MEAN CORPUSCULAR HEMOGLOBIN 27.8 pg (25.0-35.0); MEAN CORPUSCULAR HGB CONC 34.1 g/dl (31.0-37.0); MONO # 0.3 (0.1-0.6); MONO % 4.4 % (1.0-6.0); RED CELL DISTRIBUTION WIDTH 15.6 % (11.5-14.5); WHITE BLOOD COUNT 7.3 10^3/ul (4.5-11.0)
[2017-06-11 10:32] LABS: VENOUS BLOOD GAS BASE EXCESS -0.3 mmol/L (0.0-2.0); VENOUS BLOOD PH 7.51 (7.32-7.43)
[2017-06-11 10:39] LABS: ALB/GLOB RATIO 0.7 (1.1-1.8); BILIRUBIN,TOTAL 0.9 mg/dL (0.2-1.3); CALCIUM 8.8 mg/dL (8.4-10.5); MAGNESIUM 2.5 mg/dL (1.7-2.2); PHOSPHOROUS 2.4 mg/dL (2.5-4.5); POTASSIUM 3.6 mmol/L (3.6-5.0); TOTAL PROTEIN 9.3 g/dL (5.8-8.3)
[2017-06-11 10:40] LABS: INR 1.11 (0.93-1.08); PARTIAL THROMBOPLASTIN TIME 38.1 Seconds (23.7-30.8)
[2017-06-11 10:49] LABS: URINE BILIRUBIN SMALL (NEGATIVE); URINE BLOOD LARGE (NEGATIVE); URINE GLUCOSE (UA) NEGATIVE (NEGATIVE); URINE KETONE NEGATIVE (NEGATIVE); URINE LEUKOCYTE ESTERASE NEGATIVE Leu/uL (NEGATIVE); URINE PROTEIN >=300 mg/dL (<30 mg/dL)
[2017-06-11] MEDS ORDERED: Piperacillin/Tazobact 2.25gm 2.25 GM/100 ML BAG IVPB STA (10:49)
[2017-06-11 10:52] LABS: URINE APPEARANCE CLEAR (CLEAR); URINE COLOR YELLOW (YELLOW)
--- NOTE | 2017-06-11 10:56 | CT ---
PROCEDURE: CT HEAD WITHOUT CONTRAST. HISTORY: ams COMPARISON: None available. TECHNIQUE: Axial computed tomography images were obtained through the head/brain without intravenous contrast. Radiation dose: Total exam DLP = 725.84 mGy-cm. This CT exam was performed using one or more of the following dose reduction techniques: Automated exposure control, adjustment of the mA and/or kV according to patient size, and/or use of iterative reconstruction technique. FINDINGS: HEMORRHAGE: No intracranial hemorrhage. BRAIN: Mild chronic periventricular white matter ischemic changes. In addition, there is a small age-indeterminate left basal ganglia/mari radiata junction small infarct. Additionally, a few chronic appearing lacunar type infarcts seen scattered about the deep and subcortical white matter both cerebral hemispheres. Mild generalized volume loss. Vascular calcifications both carotid siphons VENTRICLES: No evidence of obstructive hydrocephalus. CALVARIUM: Calvarium appears intact. PARANASAL SINUSES: Mild mucosal thickening left maxillary antrum. There is a large defect involving the nasal septum. . MASTOID AIR CELLS: Unremarkable as visualized. No inflammatory changes. OTHER FINDINGS: Reviewed None. IMPRESSION: No acute intracranial hemorrhage. Mild chronic white matter ischemic changes. Age indeterminate small infarct left mari radiata/ basal ganglia junction. There are multiple tiny lacunar type infarcts scattered about the deep and subcortical white matter both cerebral hemispheres. Mild generalized volume loss.
[2017-06-11 10:57] LABS: URINE EPITHELIAL CELLS 0 - 2 /hpf (0-5); URINE WBC 0 - 2 /hpf (0-6)
[2017-06-11 11:27] LABS: ARTERIAL BLOOD GAS HCO3 18.5 mmol/L (21-28); ARTERIAL BLOOD GAS PH 7.46 (7.35-7.45)
[2017-06-11 11:37] LABS: TROPONIN I 0.03 ng/mL
[2017-06-11 11:39] LABS: PLATELET COUNT 126 10^3/uL (120.0-450.0)
--- NOTE | 2017-06-11 11:41 | CT ---
PROCEDURE: CT abdomen and pelvis dated 06/11/2017 HISTORY: Abdominal pain. Fever COMPARISON: . Comparison made with chest radiograph obtained earlier same day TECHNIQUE: Contiguous axial images of the abdomen and pelvis performed without oral or intravenous contrast material. Coronal and Sagittal reformats generated. This CT exam was performed using one or more of the following dose reduction techniques: Automated exposure control, adjustment of the mA and/or kV according to patient size, and/or use of iterative reconstruction technique. Total exam DLP = 793.96 mGy-cm. FINDINGS: LOWER THORAX: Left lower lobe consolidation likely representing pneumonia however correlate clinically. No effusion or basilar pneumothorax. There is a tiny pneumatocele left lateral lower lung field. Heart size borderline/mildly enlarged. No significant pericardial effusion. Minor changes of gynecomastia. LIVER: Liver exhibits normal size measuring approximately 14 cm in CC dimension. No obvious hepatic mass collection or calcification. The GALLBLADDER AND BILE DUCTS: The gallbladder is incompletely distended and poorly seen due to motion artifact as well as adjacent bowel. No obvious large intraluminal calculi seen. PANCREAS: The pancreas appears grossly unremarkable without obvious mass collection or calcification. SPLEEN: Spleen exhibits normal size and attenuation pattern without mass collection or calcification. ADRENALS: No adrenal lesions. KIDNEYS AND URETERS: Kidneys demonstrate relatively symmetric size. No evidence of nephrolithiasis or hydronephrosis. BLADDER: Urinary bladder is incompletely distended which may account for slight thick-walled appearance. Muscular hypertrophy may contribute. Possibility of cystitis not excluded REPRODUCTIVE: The prostate gland seminal vesicles grossly unremarkable. . APPENDIX: What is felt to represent a partially air-filled retrocecal appendix seen on axial image number [id number]. No obvious periappendiceal inflammatory changes. BOWEL: Evaluation of the bowel is limited due to the lack of oral contrast. Stomach is incompletely distended which may account for slight thick-walled appearance. Visualized loops of small bowel exhibit normal contour and caliber. No evidence acute mechanical small bowel obstruction. Stool and air seen throughout the colon. PERITONEUM: No gross free intraperitoneal air. No loculated fluid collections. LYMPH NODES: Unremarkable. No enlarged lymph nodes. VASCULATURE: Unremarkable. No aortic aneurysm. BONES: Minor multilevel degenerative spondylosis of the lower thoracic and lumbar spine. OTHER FINDINGS: None. IMPRESSION: Left lower lobe infiltrate likely representing pneumonia. Clinical correlation recommended.
[2017-06-11] MEDS ORDERED: levoFLOXacin 750 mg in D5W 150 ML BAG IVPB STA (11:51)
[2017-06-11] MEDS ORDERED: levoFLOXacin 750 mg in D5W 750 MG/150 ML BAG IVPB STA (12:21)
[2017-06-11] MEDS ORDERED: Sodium Chloride 0.9% 1,000 ML IV STA (12:51)
--- NOTE | 2017-06-11 12:58 | CP.PCM.CON ---
History of Present Illness - History of Present Illness History of Present Illness: Patient is 56yo male with PMHx of CAD with stents, ?CVA in the past, presents with fever, and poor po intake. As per the , patient has not been himself over the last couple of days, lying in bed, not eating or drinking liquids, and running a fever of 101. Pt denies chills, cough, chest pain, sob, dysuria, abd pain, photophobia. NO other constitutional symptoms. In the Er initially HR 150s sinus, given 2L NS bolus with improvement HR 110, BP 153/76, AAOX3 currently. PMHx: CAD, ?CVA PSHx: NONE Allergies: NKDA Meds: as per EMR ROS: +fever, +weakness, other negative Review of Systems - Review of Systems Review of Systems: as per hpi Past Patient History - Infectious Disease Hx of Infectious Diseases: None - Past Social History Smoking Status: Unknown If Ever Smoked - CARDIAC Hx Hypertension: Yes Hx Pacemaker: No Other/Comment: cardiac stent - NEUROLOGICAL Hx Paralysis: No - HEMATOLOGICAL/ONCOLOGICAL Hx Blood Transfusions: No - MUSCULOSKELETAL/RHEUMATOLOGICAL Hx Musculoskeletal Disorders: Yes - PSYCHIATRIC Hx Emotional Abuse: No Hx Physical Abuse: No Hx Substance Use: No - SURGICAL HISTORY Hx Surgeries: Yes - ANESTHESIA Hx Anesthesia Reactions: Yes ("I WAS OVERSEDATED") Hx Malignant Hyperthermia: No Meds Allergies/Adverse Reactions: Allergies Allergy/AdvReac Type Severity Reaction Status Date / Time No Known Allergies Allergy Verified 04/13/17 12:39 - Medications Medications: Current Medications Levofloxacin/Dextrose (Levaquin 750mg) 750 mg in 150 mls @ 100 mls/hr IVPB STAT STA Stop: 06/11/17 13:50 Last Admin: 06/11/17 12:25 Dose: 100 mls/hr Physical Exam - Constitutional Appears: Well, Non-toxic, No Acute Distress - Head Exam Head Exam: ATRAUMATIC, NORMAL INSPECTION - Eye Exam Eye Exam: EOMI, Normal appearance - ENT Exam ENT Exam: Mucous Membranes Dry - Neck Exam Neck exam: Positive for: Full Rom, Normal Inspection - Respiratory Exam Respiratory Exam: Clear to Auscultation Bilateral, NORMAL BREATHING PATTERN - Cardiovascular Exam Cardiovascular Exam: Tachycardia, REGULAR RHYTHM, +S1, +S2 - GI/Abdominal Exam GI & Abdominal Exam: Normal Bowel Sounds, Soft, Tenderness Additional comments: RUQ Tenderness - Extremities Exam Extremities exam: Positive for: normal inspection - Back Exam Back exam: NORMAL INSPECTION - Neurological Exam Neurological exam: Alert, CN II-XII Intact, Oriented x3 - Psychiatric Exam Psychiatric exam: Flat Affect Results - Vital Signs Recent Vital Signs: Last Vital Signs Temp 101.2 F H 06/11/17 10:15 Pulse 114 H 06/11/17 12:15 Resp 24 06/11/17 12:15 BP 154/79 H 06/11/17 12:15 Pulse Ox 97 06/11/17 12:15 - Labs Result Diagrams: 06/11/17 09:45 06/11/17 09:45 Labs: Laboratory Results - last 24 hr 06/11/17 06/11/17 06/11/17 09:45 09:45 09:45 WBC 7.3 D RBC 4.24 Hgb 11.8 L Hct 34.6 L MCV 81.6 MCH 27.8 MCHC 34.1 RDW 15.6 H Plt Count 126 Gran % 83.1 H Lymph % (Auto) 11.2 L [place] % (Auto) 4.4 Eos % (Auto) 1.2 L Baso % (Auto) 0.1 Gran # 6.02 Lymph # 0.8 L [place] # 0.3 Eos # 0.1 Baso # 0.01 PT 12.0 H INR 1.11 H APTT 38.1 H pCO2 pO2 51 HCO3 ABG pH ABG Total CO2 ABG O2 Saturation ABG Base Excess ABG Potassium VBG pH 7.51 H VBG pCO2 27.0 L VBG HCO3 21.5 VBG Total CO2 22.3 VBG O2 Sat (Calc) 91.4 H VBG Base Excess -0.3 L VBG Potassium 3.8 Sodium 136.0 Chloride 103.0 Glucose 152 H Lactate 2.8 H FiO2 21.0 Potassium Carbon Dioxide Anion Gap BUN Creatinine Est GFR ( Amer) Est GFR (Non-Af Amer) Random Glucose Calcium Phosphorus Magnesium Total Bilirubin AST ALT Alkaline Phosphatase Lactate Dehydrogenase Total Creatine Kinase CK-MB (CK-2) CK-MB (CK-2) % Troponin I NT-Pro-B Natriuret Pep Total Protein Albumin Globulin Albumin/Globulin Ratio Amylase Lipase Arterial Blood Potassium Venous Blood Potassium 3.8 Urine Color Urine Appearance Urine pH Ur Specific [place] Urine Protein Urine Glucose (UA) Urine Ketones Urine Blood Urine Nitrate Urine Bilirubin Urine Urobilinogen Ur Leukocyte Esterase Urine RBC Urine WBC Ur Epithelial Cells Hyaline Casts Coarse Granular Casts 06/11/17 06/11/17 06/11/17 09:45 10:31 11:15 WBC RBC Hgb Hct MCV MCH MCHC RDW Plt Count Gran % Lymph % (Auto) [place] % (Auto) Eos % (Auto) Baso % (Auto) Gran # Lymph # [place] # Eos # Baso # PT INR APTT pCO2 26 L pO2 67.0 L HCO3 18.5 L ABG pH 7.46 H ABG Total CO2 19.3 L ABG O2 Saturation 96.4 ABG Base Excess -3.8 L ABG Potassium 2.8 L VBG pH VBG pCO2 VBG HCO3 VBG Total CO2 VBG O2 Sat (Calc) VBG Base Excess VBG Potassium Sodium 140 139.0 Chloride 102 112.0 H Glucose 122 H Lactate 1.5 FiO2 21.0 Potassium 3.6 Carbon Dioxide 21 Anion Gap 21 H BUN 40 H Creatinine 2.1 H Est GFR ( Amer) 39 Est GFR (Non-Af Amer) 33 Random Glucose 149 H Calcium 8.8 Phosphorus 2.4 L Magnesium 2.5 H Total Bilirubin 0.9 AST 560 H ALT 67 H Alkaline Phosphatase 135 H Lactate Dehydrogenase 4970 H Total Creatine Kinase 86177 H CK-MB (CK-2) 7.4 H CK-MB (CK-2) % 0.0 L Troponin I 0.03 NT-Pro-B Natriuret Pep 798 H Total Protein 9.3 H Albumin 3.8 Globulin 5.5 Albumin/Globulin Ratio 0.7 L Amylase 108 Lipase 287 Arterial Blood Potassium 2.8 L Venous Blood Potassium Urine Color Yellow Urine Appearance Clear Urine pH 6.0 Ur Specific [place] >= 1.030 Urine Protein >=300 H Urine Glucose (UA) Negative Urine Ketones Negative Urine Blood Large H Urine Nitrate Negative Urine Bilirubin Small H Urine Urobilinogen 2.0 H Ur Leukocyte Esterase Negative Urine RBC 1 - 3 Urine WBC 0 - 2 Ur Epithelial Cells 0 - 2 Hyaline Casts 0 - 2 Coarse Granular Casts Small H - Imaging and Cardiology Chest x-ray Status: Image reviewed by me, Report reviewed by me Assessment & Plan - Assessment and Plan (Free Text) Assessment: 56yo male a/w renal failure, rhabdo, dehydration, sepsis Severe Sepsis Rhabdo Dehydration Acute renal failure Abnormal LFTs - currently afrebrile, HD stable SBP 150s, HR 110 sinus, patient AAox3, denies sob, cp, photophobia, cough, palpitations, PITT, dizziness - on labs ARF with Rhabdo, unclear etiology of rhabdo - elevated LFTs likely result of Rhabdo, would obtain further imaging of the RUQ with sono Recommend: - supp O2 as needed - broad spectrum abx - panculture, check procalcitonin - RUQ sono - aggressive IVF hydration, Galvin for I/Os - repeat CK after IVF - obtain ECHO - check hepatitis panel - check UTox - DVT ppx - GI ppx - Admit to MICU Critical care time: 35 minutes
--- NOTE | 2017-06-11 13:19 | RAD ---
HISTORY: Sepsis Patient COMPARISON: All 0 No prior. FINDINGS: LUNGS: Vague left lower lobe opacity may represent atelectasis or infiltrate PLEURA: No significant pleural effusion identified, no pneumothorax apparent. CARDIOVASCULAR: Normal. OSSEOUS STRUCTURES: No significant abnormalities. VISUALIZED UPPER ABDOMEN: Normal. OTHER FINDINGS: None. IMPRESSION: Left lower lobe atelectasis or infiltrate
[2017-06-11] MEDS ORDERED: Piperacillin/Tazobact 3.375 gm 100 ML IVPB SCH ×3 (14:15→22:00)
[2017-06-11] MEDS: Sodium Chloride 0.9% 100 ML IV SCH ×2 (14:45→14:50)
[2017-06-11 15:06] LABS: VENOUS BLOOD GAS BASE EXCESS -3.1 mmol/L (0.0-2.0); VENOUS BLOOD PH 7.42 (7.32-7.43)
[2017-06-11 16:01] VITALS: BMI 27.6
[2017-06-11] MEDS ORDERED: Pneumococcal 23-Valent Vaccine IM ONE (16:01)
[2017-06-11] MEDS: Vancomycin 1gm in NS 250ml 1 GM/250 ML BAG IVPB SCH (16:44)
[2017-06-11] MEDS: Sodium Chloride 0.9% 1,000 ML IV SCH ×2 (16:46→21:53)
--- NOTE | 2017-06-11 22:41 | HP ---
HISTORY OF PRESENT ILLNESS: I was going down to the emergency room to visit Madhav. He came in not feeling well. He presents with his fiancee with fevers. This has happened to him before. PAST MEDICAL HISTORY: Hypertension, cardiac stents. He has musculoskeletal disorder. No anxiety. No depression. It almost seemed like he was over sedated. FAMILY HISTORY: He has no known family history. SOCIAL HISTORY: Not sure about the smoking, drinking, or substance abuse at this time, he is out of it. ALLERGIES: NO KNOWN DRUG ALLERGIES. MEDICATIONS: He is on aspirin and Plavix. He has been taking Augmentin. Apparently, the Augmentin has been helping him if any worse. REVIEW OF SYSTEMS: It was difficult to get a complete good review of systems, but no acute vision changes or hearing changes. Slow to respond. He has got fevers. No shortness of breath or cough. No chest pain. No abdominal pain. No nausea, vomiting, constipation, or diarrhea. No problems urinating. No body pains. No itching. No headaches. No dizziness. PHYSICAL EXAMINATION: VITAL SIGNS: He comes in with a 101.2 fever, 132 pulse, 146/129 blood pressure, 20 respiratory rate, and 99% O2 saturation on oxygen. HEENT: His head is atraumatic, normocephalic. His extraocular muscles are intact. Pupils equal and reactive to light. Throat is dry. NECK: Supple. Thyroid is midline. HEART: Regular rate. LUNGS: Decreased breath sounds, but clear to auscultation. ABDOMEN: Soft, nontender with positive bowel sounds. No guarding. No rebound. No CVA tenderness. EXTREMITIES: Have no edema. SKIN: For the most part is intact. No rashes or ulcers appreciated. NEUROLOGIC: He is awake, alert, and sluggish. Slow to respond to questions. LYMPH: No palpable appreciable lymphadenopathy. LABORATORY DATA: He had multiple tests done. His urine was negative for leukocyte. Sodium 140, potassium of 3.6, BUN 40, creatinine 2.1 elevated, and GFR is 33. Sugar is 149, calcium is 8.8, phosphorus 2.4, and magnesium 2.5. AST is 560, ALT is 67, alkaline phosphatase 135, lactic dehydrogenase is 4170, and total creatine kinase is 47,625. Troponin I is less than 0.03. BNP is 798 elevated. Blood gas pH 7.46, lactate was 2.8. INR 1.11. He has 7.3 white count, 11.8 hemoglobin, 34.6 hematocrit, and 126 platelets. He had a chest x-ray which showed left lower lobe atelectasis, possible pneumonia, and a CAT scan showing left lower lobe infiltrate. Head CT, no acute intracranial hemorrhage, mild chronic white matter ischemia and multiple tiny lacunar type infarcts scattered about the deep ends of cortical white matter with cerebral hemispheres. The patient will go to the intensive care unit for sepsis, rhabdomyolysis, pneumonia, change of mentation, dehydration, renal insufficiency, consult. He is on Levaquin, IV fluids, and Zosyn of consult. Poncho Caruso DO [email or web address]
[2017-06-12] MEDS: Sodium Chloride 0.9% 1,000 ML IV SCH (04:56)
[2017-06-12] MEDS: Pantoprazole 40 mg EC Tab PO SCH (05:00)
[2017-06-12 06:21] LABS: ALB/GLOB RATIO 0.6 (1.1-1.8); BILIRUBIN,TOTAL 0.6 mg/dL (0.2-1.3); CALCIUM 7.1 mg/dL (8.4-10.5); MAGNESIUM 2.4 mg/dL (1.7-2.2); PHOSPHOROUS 2.8 mg/dL (2.5-4.5); POTASSIUM 3.4 mmol/L (3.6-5.0); TOTAL PROTEIN 6.7 g/dL (5.8-8.3)
[2017-06-12 06:28] LABS: MEAN CELL VOLUME 81.8 fl (80.0-105.0); MEAN CORPUSCULAR HEMOGLOBIN 27.4 pg (25.0-35.0); MEAN CORPUSCULAR HGB CONC 33.5 g/dl (31.0-37.0); MEAN PLATELET VOLUME 13.6 fl (7.0-11.0); RED CELL DISTRIBUTION WIDTH 15.9 % (11.5-14.5); WHITE BLOOD COUNT 7.7 10^3/ul (4.5-11.0)
[2017-06-12] MEDS ORDERED: Potassium Chloride 20 mEq ER Tab PO STA (07:31)
[2017-06-12] MEDS: Metoprolol Succinate 25 mg XL Tab PO SCH (09:22)
[2017-06-12] MEDS: Vancomycin 1gm in NS 250ml 1 GM/250 ML BAG IVPB SCH (09:23)
[2017-06-12] MEDS: levoFLOXacin 750 mg in D5W 750 MG/150 ML BAG IVPB SCH (09:25)
[2017-06-12] MEDS ORDERED: Azithromycin 500MG/NS 250ml 500 MG/250 ML BAG IVPB SCH (10:00)
[2017-06-12] MEDS ORDERED: Azithromycin 250 MG in Sodium Chloride 0.9% 250 ML IVPB SCH (10:00)
[2017-06-12] MEDS: Lactated Ringer's 1,000 ML IV SCH ×2 (11:02→22:01)
--- NOTE | 2017-06-12 11:18 | PN ---
DATE: SUBJECTIVE: I saw him in the intensive care unit. He is resting in bed, still sluggish, but he is talking a little bit but may be a little bit better than ER, but not much still very sick on multiple IVs. PHYSICAL EXAMINATION: VITAL SIGNS: He has 101.5 temperature, 137/50 blood pressure, 20 respiratory rate as high as 27, and 98% O2. HEENT: Head is atraumatic, normocephalic. Throat is dry. NECK: Supple. HEART: Regular rate. LUNGS: Decreased breath sounds bilaterally. EXTREMITIES: No edema. MEDICATIONS: He is currently on Ecotrin, heparin, Levaquin, Plavix, Protonix, IV fluids, Toprol, Tylenol, vancomycin. LABORATORY DATA: He has a positive legionella. He has 7.7 white count, hemoglobin up to 8.7 with fluids, hematocrit 26, platelets 96, the hemoglobin dropped to 8 after transfusion, INR 1.11. He has 143 sodium, potassium 3.4 gave him potassium today, BUN is 41, creatinine 2.4 went up not down, I called Renal, sugar is 102, calcium 7.1, phosphorus 2.8, magnesium 2.4, total bilirubin is 0.6, AST is 535, ALT is 94, alkaline phosphatase is 82, total creatinine kinase is 38,268, total protein is 6.7. He is definitely ill. He is in the intensive care unit. He has got multiple issues from sepsis to rhabdo to Legionella to anemia to left lower lobe pneumonia, being dehydrated, renal insufficiency, he has got consult with infectious disease, cardiology and renal for now. Continue with ICU treatment. Checking labs. Thank you very much. Poncho Caruso DO
--- NOTE | 2017-06-12 11:31 | CP.PCM.PN ---
Subjective - Date & Time of Evaluation Date of Evaluation: 06/12/17 Time of Evaluation: 09:00 - Subjective Subjective: CRITICAL CARE PROGRESS NOTE Patient seen and examined. Report he is feeling much better, denies cp, sob, palpitations, PITT, dizziness. No other constitutional symptoms. Tolerating PO diet. Labs with worsening renal function, CK downtrending, Objective - Vital Signs/Intake and Output Vital Signs (last 24 hours): Temp Pulse Resp BP Pulse Ox 101.5 F H 103 H 20 144/73 98 06/12/17 08:22 06/12/17 09:22 06/12/17 04:00 06/12/17 09:22 06/12/17 03:00 Intake and Output: 06/12/17 06/12/17 06:59 18:59 Intake Total 2580 Output Total 600 Balance 1979 - Medications Medications: Current Medications Acetaminophen (Tylenol 325mg Tab) 650 mg PO Q6H PRN PRN Reason: Temperature Last Admin: 06/12/17 08:22 Dose: 650 mg Aspirin (Ecotrin) 81 mg PO DAILY [facility] Last Admin: 06/12/17 09:23 Dose: 81 mg Clopidogrel Bisulfate (Plavix) 75 mg PO DAILY [facility] Last Admin: 06/12/17 09:22 Dose: 75 mg Heparin Sodium (Porcine) (Heparin) 5,000 units SC Q12 RENE PRN Reason: Protocol Last Admin: 06/12/17 09:23 Dose: 5,000 units Vancomycin HCl (Vancomycin 1gm) 1 gm in 250 mls @ 167 mls/hr IVPB DAILY [facility] PRN Reason: Protocol Last Admin: 06/12/17 09:23 Dose: 167 mls/hr Levofloxacin/Dextrose (Levaquin 750mg) 750 mg in 150 mls @ 100 mls/hr IVPB DAILY [facility] Stop: 06/26/17 10:01 Last Admin: 06/12/17 09:25 Dose: 100 mls/hr Lactated Ringer's (Lactated Ringer's) 1,000 mls @ 125 mls/hr IV .Q8H [facility] Last Admin: 06/12/17 11:02 Dose: 125 mls/hr Metoprolol Succinate (Toprol Xl) 25 mg PO DAILY [facility] Last Admin: 06/12/17 09:22 Dose: 25 mg Pantoprazole Sodium (Protonix Ec Tab) 40 mg PO 0600 [facility] Last Admin: 06/12/17 05:00 Dose: 40 mg - Labs Labs: 06/12/17 05:30 06/12/17 05:30 PT 12.0 Seconds (9.9-11.8) H 06/11/17 09:45 INR 1.11 (0.93-1.08) H 06/11/17 09:45 APTT 38.1 Seconds (23.7-30.8) H 06/11/17 09:45 - Constitutional Appears: No Acute Distress - Head Exam Head Exam: NORMAL INSPECTION - Eye Exam Eye Exam: Normal appearance - ENT Exam ENT Exam: Mucous Membranes Moist - Neck Exam Neck Exam: Full ROM - Respiratory Exam Respiratory Exam: Clear to Ausculation Bilateral, NORMAL BREATHING PATTERN - Cardiovascular Exam Cardiovascular Exam: REGULAR RHYTHM, RRR, +S1, +S2 - GI/Abdominal Exam GI & Abdominal Exam: Soft, Normal Bowel Sounds - Extremities Exam Extremities Exam: Full ROM, Normal Inspection - Neurological Exam Neurological Exam: Alert, Awake - Psychiatric Exam Psychiatric exam: Flat Affect Assessment and Plan - Assessment and Plan (Free Text) Assessment: 56yo male a/w renal failure, rhabdo, dehydration, sepsis 2/2 Legionella PNA Severe Sepsis Legionella PNA Rhabdo Dehydration Acute renal failure Abnormal LFTs - currently afrebrile, HD stable SBP 130s, HR 100 sinus, patient awake, alert, denies sob, cp, photophobia, cough, palpitations, PITT, dizziness - on labs ARF with Rhabdo, likely result of Legionella infection - ID following - on IV Levaquin, o2sat 98% on room air - elevated LFTs likely result of Rhabdo Recommend: - supp O2 as needed - broad spectrum abx, cover for atypical/Legionella - follow up ID - panculture, check procalcitonin - aggressive IVF hydration, Galvin for I/Os, switch IVF to LR 150cc/hr - CK downtrending - Cr 2.4 today, uptrending, obtain renal consult - obtain ECHO - check hepatitis panel - DVT ppx - GI ppx - cont care in MICU Critical care time: 35 minutes
--- NOTE | 2017-06-12 13:48 | CARD ---
APPROVED REPORT EKG Measurement Heart [id number] <Conclusion> Sinus tachycardia with frequent premature ventricular complexes Possible Left atrial enlargement Left ventricular hypertrophy with repolarization abnormality Abnormal ECG
--- NOTE | 2017-06-12 15:01 | CON ---
DATE: 06/12/2017 LOCATION: The patient is seen in the ICU, bed 1. CHIEF COMPLAINT: Fever from several days. HISTORY OF PRESENT ILLNESS: This is a 56-year-old male with past medical history of coronary artery disease, cardiac stents, ex-smoker. He is brought in by anasonya who states he has not been feeling well, not eating well or drinking. He had a workup in the emergency room which revealed legionella pneumonia diagnosed by Dr. Rosalio Ramirez in the emergency room and they called me with the diagnosis. The patient states he has had some cough, mild abdominal discomfort. He did had fevers, some headaches. No chest pain now. PAST MEDICAL HISTORY: Significant for coronary artery disease, high cholesterol, long time smoker who has quit after his cardiac workup, hypertension, arthritis. He still smokes 3 cigarettes a day. PAST SURGICAL HISTORY: Significant for cardiac stents. ALLERGIES: THE PATIENT HAS NO KNOWN ALLERGIES. MEDICATIONS: At home include; amlodipine, Plavix, clonidine, Lipitor, metoprolol, aspirin. The patient was on Augment as outpatient according to medication list. PHYSICAL EXAMINATION: GENERAL: He is in bed. He is slow to response, however, he knows who he is. He knows what year it is and where he is. He appears to be improving overnight as per night nurse. VITAL SIGNS: Temperature of 101.4, respiratory rate of 27, heart rate of 107, blood pressure is 130/50, oxygenation saturation is 98%, it was down to 92%. HEENT: Unremarkable. NECK: Supple. LUNGS: Decreased breath sounds. HEART: Normal S1 and S2. ABDOMEN: Soft and nontender. No rebound. No guarding. No masses. LABORATORY DATA: Reveals a white count of 7.3, and hemoglobin of 11. Chemistries are noted. The patient's creatinine is 2.1 and on March the patient's creatinine was 1.0. The patient has elevated LFTs, elevated LDH and elevated creatine kinase. Urinalysis is unremarkable, there is 300 protein, no wbc's. Urine legionella antigen is positive. The patient had a CAT scan of the abdomen and pelvis which was read as left lower lobe infiltrate, thus the abdominal examinations are unremarkable. Gallbladder is incompletely distended and liver size is normal. ASSESSMENT AND PLAN: This is a 56-year-old male with coronary artery disease, long time smoker, ex-smoker, still smokes 3 cigarettes a day; high cholesterol; hypertension; arthritis; cardiac stents admitted with fever; hypoxia; short of breath. Severe sepsis, secondary to a left lower lobe community acquired legionella pneumonia with acute kidney injury. We will treat the patient with Levaquin. We will recommend HIV testing, procalcitonin, and gilmore cultures. Discontinue the Zosyn. The patient was started on vancomycin, I doubt another infection of MRSA on top of the legionella. If cultures are negative, discontinue the vancomycin. We will follow closely with you. Pepe Angulo MD
--- NOTE | 2017-06-12 17:58 | CP.PCM.CON ---
History of Present Illness - History of Present Illness History of Present Illness: RENAL CONSULT NOTE Past Patient History - Infectious Disease Hx of Infectious Diseases: None - Past Social History Smoking Status: Unknown If Ever Smoked - CARDIAC Hx Hypertension: Yes Hx Pacemaker: No Other/Comment: cardiac stent - PULMONARY Hx Respiratory Disorders: Yes (SMOKED CIGARETTES 3/D) - NEUROLOGICAL Hx Paralysis: No - HEMATOLOGICAL/ONCOLOGICAL Hx Blood Transfusions: No - MUSCULOSKELETAL/RHEUMATOLOGICAL Hx Musculoskeletal Disorders: Yes - PSYCHIATRIC Hx Emotional Abuse: No Hx Physical Abuse: No Hx Substance Use: No - SURGICAL HISTORY Hx Surgeries: Yes (CARDIAC STENTS X 3.) - ANESTHESIA Hx Anesthesia Reactions: Yes ("I WAS OVERSEDATED") Hx Malignant Hyperthermia: No Meds Allergies/Adverse Reactions: Allergies Allergy/AdvReac Type Severity Reaction Status Date / Time No Known Allergies Allergy Verified 06/11/17 14:05 - Medications Medications: Current Medications Acetaminophen (Tylenol 325mg Tab) 650 mg PO Q6H PRN PRN Reason: Temperature Last Admin: 06/12/17 08:22 Dose: 650 mg Aspirin (Ecotrin) 81 mg PO DAILY [facility] Last Admin: 06/12/17 09:23 Dose: 81 mg Clopidogrel Bisulfate (Plavix) 75 mg PO DAILY [facility] Last Admin: 06/12/17 09:22 Dose: 75 mg Heparin Sodium (Porcine) (Heparin) 5,000 units SC Q12 RENE PRN Reason: Protocol Last Admin: 06/12/17 09:23 Dose: 5,000 units Vancomycin HCl (Vancomycin 1gm) 1 gm in 250 mls @ 167 mls/hr IVPB DAILY [facility] PRN Reason: Protocol Last Admin: 06/12/17 09:23 Dose: 167 mls/hr Levofloxacin/Dextrose (Levaquin 750mg) 750 mg in 150 mls @ 100 mls/hr IVPB DAILY [facility] Stop: 06/26/17 10:01 Last Admin: 06/12/17 09:25 Dose: 100 mls/hr Lactated Ringer's (Lactated Ringer's) 1,000 mls @ 125 mls/hr IV .Q8H [facility] Last Admin: 06/12/17 11:02 Dose: 125 mls/hr Metoprolol Succinate (Toprol Xl) 25 mg PO DAILY [facility] Last Admin: 06/12/17 09:22 Dose: 25 mg Pantoprazole Sodium (Protonix Ec Tab) 40 mg PO 0600 [facility] Last Admin: 06/12/17 05:00 Dose: 40 mg Results - Vital Signs Recent Vital Signs: Last Vital Signs Temp 100.5 F H 06/12/17 16:00 Pulse 95 H 06/12/17 15:59 Resp 34 H 06/12/17 15:59 BP 132/73 06/12/17 16:00 Pulse Ox 97 06/12/17 15:00 - Labs Result Diagrams: 06/12/17 05:30 06/12/17 05:30 Labs: Laboratory Results - last 24 hr 06/11/17 06/11/17 06/12/17 23:50 23:50 05:30 WBC 7.7 RBC 3.18 L Hgb 8.7 L D Hct 26.0 L MCV 81.8 MCH 27.4 MCHC 33.5 RDW 15.9 H Plt Count 96 L MPV 13.6 H Sodium Potassium Chloride Carbon Dioxide Anion Gap BUN Creatinine Est GFR ( Amer) Est GFR (Non-Af Amer) Random Glucose Calcium Phosphorus Magnesium Total Bilirubin AST ALT Alkaline Phosphatase Total Creatine Kinase 63664 H CK-MB (CK-2) 6.8 H CK-MB (CK-2) % 0.0 L Total Protein Albumin Globulin Albumin/Globulin Ratio Procalcitonin 21.43 H 06/12/17 05:30 WBC RBC Hgb Hct MCV MCH MCHC RDW Plt Count MPV Sodium 143 Potassium 3.4 L Chloride 112 H Carbon Dioxide 19 L Anion Gap 15 BUN 41 H Creatinine 2.4 H Est GFR ( Amer) 34 Est GFR (Non-Af Amer) 28 Random Glucose 102 Calcium 7.1 L Phosphorus 2.8 Magnesium 2.4 H Total Bilirubin 0.6 AST 535 H ALT 94 H Alkaline Phosphatase 82 Total Creatine Kinase 68062 H CK-MB (CK-2) 6.1 H CK-MB (CK-2) % 0.0 L Total Protein 6.7 Albumin 2.6 L Globulin 4.1 Albumin/Globulin Ratio 0.6 L Procalcitonin
--- NOTE | 2017-06-13 04:22 | CON ---
DATE: CONSULT SERVICE: Cardiology. COVERING PHYSICIAN: Dr. Deni Shay. REASON FOR CONSULTATION: Coronary artery disease status post PTCA admitted with legionella pneumonia, acute rhabdomyolysis, acute kidney injury. BRIEF CLINICAL HISTORY: This is a 56-year-old male with past medical history significant for coronary artery disease, CVA, status post stent, admitted with fever 101, pneumonia, chills, cough, and acute kidney injury, possible left lower lobe infiltrate, possible legionella pneumonia, and acute kidney injury, creatinine 2.4, creatinine clearance 30 mL and CPK 47,000, acute rhabdomyolysis with negative troponin, negative MB. Denies any chest pain. Feels congestion. PAST MEDICAL HISTORY: Past history significant for coronary artery disease, history of multivessel CAD status post recently a history of PTCA of LAD on 04/22/2017 and prior to that the patient had 2 weeks ago prior to this had PTCA of RCA was done with drug eluting stent. Hypertension, anxiety disorder and depression. FAMILY HISTORY: No significant family history. SOCIAL HISTORY: Denies any history of smoking, denies any history of alcohol abuse. ALLERGIES: NO KNOWN DRUG ALLERGIES. CURRENT MEDICATIONS: The patient is on aspirin and Plavix. REVIEW OF SYSTEMS: As per HPI. PHYSICAL EXAMINATION VITAL SIGNS: As follows; temperature 100.4, heart rate 90, blood pressure 144/73. HEENT: PERRLA. Extraocular muscles intact. NECK: Supple. No carotid bruit or thyromegaly. CHEST: Clear to auscultation. HEART: S1 and S2, regular. ABDOMEN: Soft. EXTREMITIES: Clubbing and cyanosis negative. LABORATORY DATA: Blood workup as follows: WBC 7.7, hemoglobin 8.0, hematocrit 26 and platelet count 96. Sodium 140, potassium 3.4, chloride 102, carbon dioxide 19, anion gap of 15, BUN of 41, creatinine of 2.4. Total CPK 93317, total protein 6.0, albumin 2.3, and albumin-globulin ratio 0.6. IMPRESSION: Acute rhabdomyolysis, pneumonia, fever, possible legionella disease, acute kidney disease secondary to rhabdomyolysis, no evidence of acute myocardiac infarction, total CPK 47,000, MB fraction 0, troponin 0.3, history of coronary artery disease, history of percutaneous transluminal coronary angioplasty of left anterior descending on 04/22/2017 prior to that 4 weeks ago the patient had percutaneous transluminal coronary angioplasty of right coronary artery. RECOMMENDATION: We will get echo to assess LV function, continue IV fluid, continue aspirin, Plavix, aggressive hydration to prevent acute kidney injury. Follow up electrolytes, monitor electrolytes, lipid profile, TSH. We will transfer care tomorrow to Dr. Deni Shay. Thank you Dr. Caruso for providing me the opportunity in taking care of Madhav Cabrera. Feliz Palmer MD cc: Poncho Caruso DO.
[2017-06-13] MEDS: Lactated Ringer's 1,000 ML IV SCH (05:40)
[2017-06-13] MEDS: Pantoprazole 40 mg EC Tab PO SCH (05:41)
[2017-06-13] MEDS: levoFLOXacin 750 mg in D5W 750 MG/150 ML BAG IVPB SCH (09:06)
[2017-06-13] MEDS: Metoprolol Succinate 25 mg XL Tab PO SCH (09:07)
[2017-06-13] MEDS: Vancomycin 1gm in NS 250ml 1 GM/250 ML BAG IVPB SCH (09:08)
[2017-06-13 09:25] LABS: EOS % 0.3 % (1.5-5.0); GRAN # 5.99 (1.4-6.5); GRAN % 82.4 % (50.0-68.0); HEMATOCRIT 25.7 % (42.0-52.0); LYMPH # 0.8 (1.2-3.4); LYMPH % 10.6 % (22.0-35.0); MEAN CELL VOLUME 80.6 fl (80.0-105.0); MEAN CORPUSCULAR HEMOGLOBIN 27.3 pg (25.0-35.0); MEAN CORPUSCULAR HGB CONC 33.9 g/dl (31.0-37.0); MEAN PLATELET VOLUME 13.2 fl (7.0-11.0); MONO # 0.5 (0.1-0.6); MONO % 6.7 % (1.0-6.0); RED CELL DISTRIBUTION WIDTH 15.7 % (11.5-14.5); WHITE BLOOD COUNT 7.3 10^3/ul (4.5-11.0)
[2017-06-13 09:48] LABS: ALB/GLOB RATIO 0.6 (1.1-1.8); BILIRUBIN,TOTAL 0.6 mg/dL (0.2-1.3); CALCIUM 8.1 mg/dL (8.4-10.5); MAGNESIUM 2.3 mg/dL (1.7-2.2); PHOSPHOROUS 2.5 mg/dL (2.5-4.5); POTASSIUM 3.7 mmol/L (3.6-5.0); TOTAL PROTEIN 6.9 g/dL (5.8-8.3)
--- NOTE | 2017-06-13 10:36 | PN ---
DATE: SUBJECTIVE: I saw him in the intensive care unit. He is more alert, but still kind of sluggish and slow to respond. He is in the intensive care unit for severe sepsis, Legionella, rhabdomyolysis, left lower lobe pneumonia, anemia, renal insufficiency, and dehydration. He has multiple consults. MEDICATIONS: He is currently on Ecotrin, heparin, Lactated ringers, Levaquin IV, Plavix, Protonix, Toprol, Tylenol, and vancomycin IV. PHYSICAL EXAMINATION VITAL SIGNS: 99 temperature, 95 pulse, 136/84 blood pressure, and 32 respiratory rate, on 100% O2 sat. HEENT: Head is atraumatic and normocephalic. Throat is moist. NECK: Supple. HEART: Regular rate. LUNGS: Decreased breath sounds. ABDOMEN: Soft. EXTREMITIES: No edema. LABORATORY DATA: He has 7.7 white count yesterday, 8.7 hemoglobin and 96 platelets. Sodium is 143, potassium is 3.4, was replaced yesterday. BUN is 41, and creatinine is 2.4 going up. Calcium is 7.1, total bilirubin is 0.6, AST is 535, ALT is 95, and alkaline phosphatase is 82. Total creatinine kinase is 38,268. ASSESSMENT AND PLAN: Awaiting this morning lab tests. The patient seen by Infectious Diseases and Cardiology. He needs to be on IV antibiotics. We will check his labs. bed to chair and physical therapy. Poncho Caruso DO [facility]
--- NOTE | 2017-06-13 13:12 | CP.PCM.PN ---
Subjective - Date & Time of Evaluation Date of Evaluation: 06/13/17 Time of Evaluation: 07:10 - Subjective Subjective: CRITICAL CARE PROGRESS NOTE Patient seen and examined earlier today, reports no major complaints. Pt requesting to go home. Pt denies fever, chills, cough, chest pain, sob. Labs with improving Cr, and CK, clinically doing significantly better. Objective - Vital Signs/Intake and Output Vital Signs (last 24 hours): Temp Pulse Resp BP Pulse Ox 99 F 101 H 32 H 146/71 100 06/13/17 04:00 06/13/17 09:07 06/13/17 07:00 06/13/17 09:07 06/13/17 07:00 Intake and Output: 06/13/17 06/13/17 06:59 18:59 Intake Total 425 Output Total 400 Balance 25 - Medications Medications: Current Medications Acetaminophen (Tylenol 325mg Tab) 650 mg PO Q6H PRN PRN Reason: Temperature Last Admin: 06/12/17 08:22 Dose: 650 mg Aspirin (Ecotrin) 81 mg PO DAILY [facility] Last Admin: 06/13/17 09:07 Dose: 81 mg Clopidogrel Bisulfate (Plavix) 75 mg PO DAILY [facility] Last Admin: 06/13/17 09:07 Dose: 75 mg Heparin Sodium (Porcine) (Heparin) 5,000 units SC Q12 RENE PRN Reason: Protocol Last Admin: 06/13/17 09:06 Dose: 5,000 units Vancomycin HCl (Vancomycin 1gm) 1 gm in 250 mls @ 167 mls/hr IVPB DAILY [facility] PRN Reason: Protocol Last Admin: 06/13/17 09:08 Dose: 167 mls/hr Levofloxacin/Dextrose (Levaquin 750mg) 750 mg in 150 mls @ 100 mls/hr IVPB DAILY [facility] Stop: 06/26/17 10:01 Last Admin: 06/13/17 09:06 Dose: 100 mls/hr Lactated Ringer's (Lactated Ringer's) 1,000 mls @ 125 mls/hr IV .Q8H [facility] Last Admin: 06/13/17 05:40 Dose: 125 mls/hr Metoprolol Succinate (Toprol Xl) 25 mg PO DAILY [facility] Last Admin: 06/13/17 09:07 Dose: 25 mg Pantoprazole Sodium (Protonix Ec Tab) 40 mg PO 0600 [facility] Last Admin: 06/13/17 05:41 Dose: 40 mg - Labs Labs: 06/13/17 09:10 06/13/17 09:10 PT 12.0 Seconds (9.9-11.8) H 06/11/17 09:45 INR 1.11 (0.93-1.08) H 06/11/17 09:45 APTT 38.1 Seconds (23.7-30.8) H 06/11/17 09:45 - Constitutional Appears: Well, Non-toxic, No Acute Distress - Head Exam Head Exam: NORMAL INSPECTION - ENT Exam ENT Exam: Mucous Membranes Moist - Neck Exam Neck Exam: Full ROM - Respiratory Exam Respiratory Exam: Clear to Ausculation Bilateral, NORMAL BREATHING PATTERN - Cardiovascular Exam Cardiovascular Exam: REGULAR RHYTHM, RRR, +S1, +S2 - GI/Abdominal Exam GI & Abdominal Exam: Soft, Normal Bowel Sounds - Extremities Exam Extremities Exam: Normal Inspection - Neurological Exam Neurological Exam: Alert, Awake Assessment and Plan - Assessment and Plan (Free Text) Assessment: 56yo male a/w renal failure, rhabdo, dehydration, sepsis 2/2 Legionella PNA Severe Sepsis Legionella PNA Rhabdo, improving Acute renal failure, improving Abnormal LFTs - currently afrebrile, HD stable SBP 150s, HR 90s sinus, - patient awake, alert, - on labs ARF with Rhabdo, improving - ID following - elevated LFTs likely result of Rhabdo Recommend: - supp O2 as needed - broad spectrum abx, cover for atypical/Legionella - follow up ID - would decreased IVF rate to LR 100cc/hr - CK downtrending - Cr 2.0 today, improving, good UOP - obtain ECHO - check hepatitis panel - follow up HIV, Hep Panel - DVT ppx - GI ppx - transfer to floor, stable
--- NOTE | 2017-06-13 15:55 | CP.PCM.PN ---
Subjective - Date & Time of Evaluation Date of Evaluation: 06/13/17 Time of Evaluation: 14:50 - Subjective Subjective: Comfortable, had low grade fever yesterday afternoon. Objective - Vital Signs/Intake and Output Vital Signs (last 24 hours): Temp Pulse Resp BP Pulse Ox 98.8 F 98 H 29 H 152/73 H 99 06/12/17 20:00 06/12/17 21:00 06/12/17 21:00 06/12/17 21:00 06/12/17 21:00 Intake and Output: 06/12/17 06/13/17 18:59 06:59 Intake Total 2370 Output Total 850 Balance 1520 - Medications Medications: Current Medications Acetaminophen (Tylenol 325mg Tab) 650 mg PO Q6H PRN PRN Reason: Temperature Last Admin: 06/12/17 08:22 Dose: 650 mg Aspirin (Ecotrin) 81 mg PO DAILY [facility] Last Admin: 06/12/17 09:23 Dose: 81 mg Clopidogrel Bisulfate (Plavix) 75 mg PO DAILY [facility] Last Admin: 06/12/17 09:22 Dose: 75 mg Heparin Sodium (Porcine) (Heparin) 5,000 units SC Q12 RENE PRN Reason: Protocol Last Admin: 06/12/17 22:02 Dose: 5,000 units Vancomycin HCl (Vancomycin 1gm) 1 gm in 250 mls @ 167 mls/hr IVPB DAILY [facility] PRN Reason: Protocol Last Admin: 06/12/17 09:23 Dose: 167 mls/hr Levofloxacin/Dextrose (Levaquin 750mg) 750 mg in 150 mls @ 100 mls/hr IVPB DAILY [facility] Stop: 06/26/17 10:01 Last Admin: 06/12/17 09:25 Dose: 100 mls/hr Lactated Ringer's (Lactated Ringer's) 1,000 mls @ 125 mls/hr IV .Q8H [facility] Last Admin: 06/12/17 22:01 Dose: 125 mls/hr Metoprolol Succinate (Toprol Xl) 25 mg PO DAILY [facility] Last Admin: 06/12/17 09:22 Dose: 25 mg Pantoprazole Sodium (Protonix Ec Tab) 40 mg PO 0600 [facility] Last Admin: 06/12/17 05:00 Dose: 40 mg - Labs Labs: 06/12/17 05:30 06/12/17 05:30 PT 12.0 Seconds (9.9-11.8) H 06/11/17 09:45 INR 1.11 (0.93-1.08) H 06/11/17 09:45 APTT 38.1 Seconds (23.7-30.8) H 06/11/17 09:45 - Constitutional Appears: Non-toxic, No Acute Distress - Head Exam Head Exam: NORMAL INSPECTION - Neck Exam Neck Exam: absent: Meningismus - Respiratory Exam Respiratory Exam: Decreased Breath Sounds - Cardiovascular Exam Cardiovascular Exam: +S1, +S2 - GI/Abdominal Exam GI & Abdominal Exam: Soft. absent: Tenderness Assessment and Plan - Assessment and Plan (Free Text) Plan: Assessment Severe sepsis with acute renal failure due to left lower lobe community- acquired pneumonia with Legionella chronic renal failure CAD S/P PCI dyslipidemia HTN Plan Continue Levaquin (day 2) - renall adjusted; continue to monitor renal function and clinical response
[2017-06-13] MEDS: levoFLOXacin 500 mg in D5W 500 MG/100 ML BAG IVPB SCH ×2 (17:50→17:53)
--- NOTE | 2017-06-13 18:59 | PN ---
CARDIOLOGY FOLLOWUP DATE: 06/13/2017 SUBJECTIVE: The patient is resting comfortably. PHYSICAL EXAMINATION: VITAL SIGNS: Blood pressure is 146/71, heart rate is 100, temperature is now 99. NECK: Negative JVD. LUNGS: Without rales. HEART: S1, S2. EXTREMITIES: Without edema. LABORATORY DATA: Hemoglobin is 8.7, white count is 7.3. Chemistries, BUN and creatinine is 37 and 2.0. IMPRESSION: 1. Sepsis. 2. Stable angina. 3. History of recent percutaneous transluminal coronary angioplasty and stent. 4. Renal insufficiency. 5. Dehydration. PLAN: Given these findings, the kidneys have responded to IV hydration. There is no evidence for acute coronary syndrome. Deni Shay MD
--- NOTE | 2017-06-13 19:56 | CARD ---
APPROVED REPORT EXAM: Two-dimensional and M-mode echocardiogram with Doppler and color Doppler. INDICATION Cardiac Disease: CAD Infection:Rule out subacute bacterial endocarditis 2D DIMENSIONS Left Atrium (2D)3.1 (1.6-4.0cm)IVSd1.3 (0.7-1.1cm) LVDd5.0 (3.9-5.9cm)PWd1.2 (0.7-1.1cm) LVDs3.5 (2.5-4.0cm)FS (%) 29.1 % LVEF (%)55.7 (>50%) M-Mode DIMENSIONS Aortic Root2.60 (2.2-3.7cm)Aortic Cusp Exc.1.90 (1.5-2.0cm) Aortic Valve AoV Peak Pczhxjhl005.0cm/Al Peak GR.15mmHg Mitral Valve MV E Njjjczgh72.3cm/sMV A Hhsqtgkr00.6cm/sE/A ratio0.9 TDI E/Lateral E'0.0E/Medial E'0.0 Tricuspid Valve TR Peak [id number]/sRAP [id number] Peak Gr.38mmHg [id number] LEFT VENTRICLE The left ventricle is normal size. There is mild concentric left ventricular hypertrophy. The left ventricular function is normal. The left ventricular ejection fraction is within the normal range. There is normal LV segmental wall motion. Transmitral Doppler flow pattern is Grade I-abnormal relaxation pattern. RIGHT VENTRICLE The right ventricle is normal size. There is normal right ventricular wall thickness. The right ventricular systolic function is normal. ATRIA The left atrium size is normal. The right atrium size is normal. AORTIC VALVE The aortic valve is not well visualized. There is mild aortic regurgitation. MITRAL VALVE The mitral valve is mildly thickened. Mitral regurgitation is mild to moderate. TRICUSPID VALVE There is mild tricuspid regurgitation. There is mild to moderate pulmonary hypertension. GREAT VESSELS The aortic root is normal in size. The IVC is normal in size and collapses >50% with inspiration. <Conclusion> There is mild concentric left ventricular hypertrophy. The left ventricular function is normal. The left ventricular ejection fraction is within the normal range. There is normal LV segmental wall motion. Transmitral Doppler flow pattern is Grade I-abnormal relaxation pattern. There is mild aortic regurgitation. Mitral regurgitation is mild to moderate. There is mild tricuspid regurgitation. There is mild to moderate pulmonary hypertension. No vegitation seen
[2017-06-13 22:08] LABS: FOLATE 17.4 ng/mL
--- NOTE | 2017-06-13 22:37 | PN ---
CHIEF COMPLAINT: None at this time. REVIEW OF SYSTEMS: Somewhat diminished because the patient has slurred speech. He denies any shortness of breath or pain at this time. He is making urine. CURRENT MEDICATIONS: Reviewed. The patient is on Tylenol p.r.n., aspirin 81 mg daily, Plavix 75 mg per day, subcutaneous heparin, Ringer lactate 125 mL/hour. He is also on Levaquin, Toprol-XL, pantoprazole and he also received supplementation with potassium. PHYSICAL EXAMINATION GENERAL: He is well maintained. VITAL SIGNS: Stable. Afebrile. Pulse is 98, blood pressure 148/84. LUNGS: Bilateral vesicular breath sounds, clear anteriorly. CARDIOVASCULAR: S1 and S2 normal with mild sinus tachycardia. No rub, gallop or murmur. ABDOMEN: Soft, nontender. No organomegaly could be appreciated. No guarding or rigidity. EXTREMITIES: No edema. SKIN: Normal turgor. No rash or ulcerations. PSYCHIATRIC: Unable to assess at this time. MUSCULOSKELETAL: No joint tenderness or swelling at this time. LABORATORY DATA: Input and output noted. The patient made at least 400 mL of urine, but appeared to be inaccurate recording. His hemoglobin is 8.7, platelet count is 119, white blood cell count is 7.3. His sodium is 143, potassium 3.7, which is improved, bicarbonate is 22, creatinine is 2, which has improved from 2.4. His calcium is 8.1, phosphorus is 2.5, magnesium is 2.3, AST is 424, CPK is decreased to 15,000, it was 47,000 at maximum. His urine had shown it was very concentrated urine level of less than 10. His urine Legionella antigen was positive for hepatitis and HIV was negative. He had a CT scan of head, which shows old stroke. Abdomen and pelvis CT scan shows normal kidneys, otherwise left lower lobe infiltrates and history of pneumonia. ASSESSMENT: Legionella left lower lobe pneumonia, history of hypertension, hyperlipidemia, rhabdomyolysis, acute kidney injury likely due to rhabdomyolysis, history of stroke, history of coronary artery disease with stents. RECOMMENDATION: Renal function appeared to be improving. CPK level is decreasing. Continue IV fluid at this time. Electrolytes are stable. Avoid nephrotoxins. for GFR close to 30 to 40. Avoid statins due to rhabdomyolysis. At home, he was on amlodipine and statins. May avoid this combination in the future. Continue the hypertension management. We will consider DARCY or ARB as an outpatient once his renal function is stable and close to normal. All questions were answered. Johnathan Aragon MD
[2017-06-14] MEDS: Pantoprazole 40 mg EC Tab PO SCH (07:00)
[2017-06-14 07:04] LABS: BASO # 0.01 K/mm3 (0.0-2.0); BASO % 0.1 % (0.0-3.0); EOS % 0.5 % (1.5-5.0); GRAN # 6.56 (1.4-6.5); GRAN % 81.2 % (50.0-68.0); HEMATOCRIT 26.3 % (42.0-52.0); LYMPH # 0.8 (1.2-3.4); LYMPH % 9.9 % (22.0-35.0); MEAN CELL VOLUME 79.5 fl (80.0-105.0); MEAN CORPUSCULAR HEMOGLOBIN 26.6 pg (25.0-35.0); MEAN CORPUSCULAR HGB CONC 33.5 g/dl (31.0-37.0); MEAN PLATELET VOLUME 12.3 fl (7.0-11.0); MONO # 0.7 (0.1-0.6); MONO % 8.3 % (1.0-6.0); RED CELL DISTRIBUTION WIDTH 15.7 % (11.5-14.5); WHITE BLOOD COUNT 8.1 10^3/ul (4.5-11.0)
[2017-06-14 07:40] LABS: ALB/GLOB RATIO 0.6 (1.1-1.8); BILIRUBIN,TOTAL 0.7 mg/dL (0.2-1.3); CALCIUM 8.3 mg/dL (8.4-10.5); MAGNESIUM 1.7 mg/dL (1.7-2.2); PHOSPHOROUS 2.2 mg/dL (2.5-4.5); POTASSIUM 3.3 mmol/L (3.6-5.0); TOTAL PROTEIN 6.8 g/dL (5.8-8.3)
[2017-06-14 07:43] LABS: IRON 17 ug/dL (45-180)
[2017-06-14] MEDS: Metoprolol Succinate 25 mg XL Tab PO SCH (09:14)
[2017-06-14] MEDS: Lactated Ringer's 1,000 ML IV SCH (09:20)
[2017-06-14] MEDS ORDERED: Potassium Chloride 20 mEq ER Tab PO SCH (10:00)
--- NOTE | 2017-06-14 10:58 | PN ---
DATE: SUBJECTIVE: I saw him resting comfortably in bed. He is asking me to be discharged. He is still septic on IV antibiotics. He tells me he can walk at length for physical therapy to give me their recommendation. He looks weak in bed. PHYSICAL EXAMINATION: VITAL SIGNS: He has a 98.7 temperature, 93 pulse, 140/83 blood pressure, and 20 respiratory rate, and 95% O2 sat on room air. HEENT: His head is atraumatic and normocephalic. HEART: Regular rate. LUNGS: Decreased breath sounds, but clear. ABDOMEN: Soft. EXTREMITIES: No edema. MEDICATIONS: He is currently on Ecotrin, heparin, Lactated Ringers, Levaquin, Plavix, Protonix, Toprol, and Tylenol. LABORATORY DATA: He has a white count of 8.1, hemoglobin of 8.8, hematocrit of 26.3, and platelets of 138. BUN is 32 coming down better, creatinine is 1.9 coming down better, GFR is 37, sugar is 96, phosphorous is 2.2, and magnesium is 1.7. Iron is 17, total binding capacity is 205, iron saturation is 8 . He has a 286 AST, ALT is 97, and alkaline phosphatase is 94. Total creatinine kinase dropped to 4892, it is improving. His CK-MB was 6.1, it is coming down to 1.4 normal, total protein is 6.8, albumin is 2.5, vitamin B12 is 706, and folate is 17.4. He was positive for Legionella. ASSESSMENT AND PLAN: He has been seen by multiple doctors; renal, infectious disease, and cardiology. He had severe sepsis with acute renal failure, left lower lobe pneumonia, Legionella, chronic renal failure, coronary artery disease, high cholesterol, hypertension, and weak. Checking his labs, replacing his potassium, IV fluids, and physical therapy. Continue aggressive treatment and care. We will see if he can go to [facility]. Poncho Caruso DO [facility]
--- NOTE | 2017-06-14 14:12 | CON ---
FOLLOWUP NEPHROLOGY CONSULTATION DATE: 06/14/2017 CHIEF COMPLAINT: None at this time. HISTORY OF PRESENT ILLNESS AND REVIEW OF SYSTEMS: Somewhat limited because of the patient's slurred speech. He otherwise denied any new compliant. No chest pain, palpitations, or shortness of breath. Has been trying to urinate, although some incontinence because of his weakness from his old stroke. Bladder scan was done, forced residual volume of only 100 mL, overnight events. PHYSICAL EXAMINATION: VITAL SIGNS: The patient is stable, afebrile, pulse is 100, blood pressure 177/73, and saturation is well maintained. LUNGS: Bilateral vesicular sounds clear. CARDIOVASCULAR: S1 and S2 normal. ABDOMEN: Soft and nontender. No organomegaly. EXTREMITIES: No edema at this time. SKIN: No rashes or ulceration except on the right upper thigh. MUSCULOSKELETAL: No joint tenderness or swelling. NEUROLOGIC: The patient is alert, awake, but has slurred speech. LABORATORY DATA: Workup shows hemoglobin of 8.8, platelet count is 138, and white blood cell count 8.1. Potassium is 3.3, bicarbonate 23, creatinine is 1.9, and glucose is 99. His phosphorus is 2.2 and magnesium is 1.7. Iron saturation of 8% and ferritin of 631. AST is improved to 286 and ALT 97. CPK down to 4800. Vitamin B12 and folate is normal. His blood cultures have been negative. He made 1500 mL of urine. CURRENT MEDICATIONS: Reviewed, which includes aspirin 81 mg per day, Plavix 75 mg per day, subcutaneous heparin, LR at 125 mL/hour, Levaquin every 48 hours, and pantoprazole 40 mg daily. ASSESSMENT AND PLAN: Legionella left lower lobe pneumonia, history of hypertension, hyperlipidemia, rhabdomyolysis, acute kidney injury likely due to rhabdomyolysis, history of stroke, and coronary artery disease with stent. RECOMMENDATIONS: Renal function slightly better. His CPK level continues to decrease. Continue IV fluid. Electrolytes are stable. Then, continue to avoid statin at this time with rhabdomyolysis especially avoid the combination of amlodipine and statin. We will increase his beta-terrance dose. We will consider DARCY or ARB as an outpatient once his renal function is stable. Supplement potassium and would also give him iron supplementation with multivitamin D. His SPEP and immunofixation is pending. All questions were answered. Johnathan Aragon MD [facility] # [id number]
--- NOTE | 2017-06-14 14:14 | CP.PCM.PN ---
Subjective - Date & Time of Evaluation Date of Evaluation: 06/14/17 Time of Evaluation: 12:45 - Subjective Subjective: Comfortable in bed, not in distress, afebrile, less cough, not short of breath at rest. Objective - Vital Signs/Intake and Output Vital Signs (last 24 hours): Temp Pulse Resp BP Pulse Ox 98.6 F 100 H 20 177/73 H 95 06/14/17 08:00 06/14/17 09:14 06/14/17 08:00 06/14/17 09:14 06/14/17 08:00 Intake and Output: 06/14/17 06/14/17 06:59 18:59 Intake Total 360 480 Output Total 1100 90 Balance -740 390 - Medications Medications: Current Medications Acetaminophen (Tylenol 325mg Tab) 650 mg PO Q6H PRN PRN Reason: Temperature Last Admin: 06/12/17 08:22 Dose: 650 mg Aspirin (Ecotrin) 81 mg PO DAILY [facility] Last Admin: 06/14/17 09:15 Dose: 81 mg Clopidogrel Bisulfate (Plavix) 75 mg PO DAILY [facility] Last Admin: 06/14/17 09:14 Dose: 75 mg Ferrous Sulfate (Feosol) 324 mg PO TID [facility] Heparin Sodium (Porcine) (Heparin) 5,000 units SC Q12 [facility]ENE PRN Reason: Protocol Last Admin: 06/14/17 09:14 Dose: 5,000 units Lactated Ringer's (Lactated Ringer's) 1,000 mls @ 125 mls/hr IV .Q8H [facility] Last Admin: 06/14/17 09:20 Dose: 125 mls/hr Levofloxacin/Dextrose (Levaquin 500mg) 500 mg in 100 mls @ 100 mls/hr IVPB Q48H [facility] Last Admin: 06/13/17 17:53 Dose: Not Given Metoprolol Tartrate (Lopressor) 50 mg PO DAILY [facility] Multivitamins (Thera Tab) 1 tab PO 0800 [facility] Pantoprazole Sodium (Protonix Ec Tab) 40 mg PO 0600 [facility] Last Admin: 06/14/17 07:00 Dose: 40 mg - Labs Labs: 06/14/17 06:54 06/14/17 06:54 PT 12.0 Seconds (9.9-11.8) H 06/11/17 09:45 INR 1.11 (0.93-1.08) H 06/11/17 09:45 APTT 38.1 Seconds (23.7-30.8) H 06/11/17 09:45 - Constitutional Appears: Non-toxic, No Acute Distress - Head Exam Head Exam: NORMAL INSPECTION - ENT Exam ENT Exam: Mucous Membranes Moist - Neck Exam Neck Exam: absent: Lymphadenopathy, Meningismus - Respiratory Exam Respiratory Exam: Decreased Breath Sounds - Cardiovascular Exam Cardiovascular Exam: +S1, +S2 - GI/Abdominal Exam GI & Abdominal Exam: Soft. absent: Tenderness Assessment and Plan - Assessment and Plan (Free Text) Plan: Assessment Severe sepsis with acute renal failure due to left lower lobe community- acquired pneumonia with Legionella chronic renal failure CAD S/P PCI dyslipidemia HTN Plan Continue Levaquin (day 3) - renally adjusted; continue to monitor renal function and clinical response; will need 2 weeks of antibiotics
[2017-06-14] MEDS ORDERED: levoFLOXacin 750 mg in D5W 750 MG/150 ML BAG IVPB SCH (14:15)
--- NOTE | 2017-06-14 16:30 | PN ---
DATE: 06/14/2017 CARDIOLOGY FOLLOWUP SUBJECTIVE: The patient is comfortable without shortness of breath. PHYSICAL EXAMINATION VITAL SIGNS: Blood pressure varies from 140-177 systolic, heart rate in the 90's. The patient is afebrile. NECK: Negative JVD. LUNGS: Without rales. HEART: S1 and S2. EXTREMITIES: Without edema. LABORATORY DATA: Hemoglobin is 8.8. Chemistries, BUN and creatinine is 32 and 1.9. IMPRESSION: 1. Rule out sepsis. 2. Renal insufficiency. 3. Anemia. 4. Weakness. 5. History of percutaneous transluminal coronary angioplasty and stent in the past. PLAN: Given these findings, the patient is waiting for GI consultation and antibiotics with Dr. Walter. Deni Shay MD
[2017-06-15 04:09] LABS: TOTAL PROTEIN, SERUM 6.4 g/dL (6.1-8.1)
[2017-06-15] MEDS: Pantoprazole 40 mg EC Tab PO SCH (06:45)
[2017-06-15 07:28] LABS: BASO # 0.01 K/mm3 (0.0-2.0); BASO % 0.1 % (0.0-3.0); EOS # 0.2 (0.0-0.7); EOS % 1.7 % (1.5-5.0); GRAN # 6.94 (1.4-6.5); GRAN % 78.6 % (50.0-68.0); LYMPH # 1.1 (1.2-3.4); LYMPH % 12.7 % (22.0-35.0); MEAN CELL VOLUME 79.7 fl (80.0-105.0); MEAN CORPUSCULAR HEMOGLOBIN 27.1 pg (25.0-35.0); MEAN PLATELET VOLUME 12.2 fl (7.0-11.0); MONO # 0.6 (0.1-0.6); MONO % 6.9 % (1.0-6.0); RED CELL DISTRIBUTION WIDTH 15.5 % (11.5-14.5); WHITE BLOOD COUNT 8.8 10^3/ul (4.5-11.0)
[2017-06-15 07:42] LABS: ALB/GLOB RATIO 0.6 (1.1-1.8); BILIRUBIN,TOTAL 0.9 mg/dL (0.2-1.3); CALCIUM 7.8 mg/dL (8.4-10.5); MAGNESIUM 1.5 mg/dL (1.7-2.2); PHOSPHOROUS 2.3 mg/dL (2.5-4.5); POTASSIUM 3.4 mmol/L (3.6-5.0); TOTAL PROTEIN 6.6 g/dL (5.8-8.3)
[2017-06-15 07:44] LABS: HEMATOCRIT 23.5 % (42.0-52.0)
[2017-06-15] MEDS: Lactated Ringer's 1,000 ML IV SCH ×2 (08:56→10:27)
[2017-06-15] MEDS: Multivitamin Therapeutic Tab PO SCH (08:56)
[2017-06-15] MEDS: Metoprolol Succinate 50 mg XL Tab PO SCH (08:57)
[2017-06-15] MEDS ORDERED: Magnesium Sulfate 1 gm in D5W 1 GM/100 ML BAG IVPB ONE (10:32)
--- NOTE | 2017-06-15 13:04 | PN ---
DATE: SUBJECTIVE: He is resting comfortably in bed. He is asking actually to go home. His physical therapy advises for TCU and subacute rehab and Infectious Disease says he needs two more weeks of antibiotics IV, so we will plan him at subacute rehab hopefully today. MEDICATIONS: He is on Ecotrin, iron, heparin, lactated Ringer's, Levaquin, Plavix, potassium replacement, Protonix,Toprol, and Tylenol. PHYSICAL EXAMINATION: GENERAL: He is alert. He is eating. He wants to leave, but he understands that well that he cannot. VITAL SIGNS: He has 99.8 temperature, 89 pulse, 137/86 blood pressure, 20 respiratory rate, and 99% O2 saturation room air. HEENT: Head is atraumatic and normocephalic. HEART: Regular rate. LUNGS: Clear to auscultation with decreased breath sounds. ABDOMEN: Soft. EXTREMITIES: No edema. LABORATORY DATA: He has 8.8 white count, 8 hemoglobin, 23.5 hematocrit with 166 platelets. I am going to transfuse him two units of packed red blood cells today. He has 142 sodium, potassium 3.4, and I replaced his potassium, his BUN is 28, creatinine is 1.7, GFR is 42, sugars 94, calcium is 7.8, phosphorus 2.3, magnesium 1.5, total bilirubin 0.9, AST is 205, ALT 90, and alkaline phosphatase is 98. Total creatine kinase is down to 1239, better. Total protein 6.6. He is being seen by Cardiology, Infectious Disease, and Renal. I am going to transfuse him two units today, replace potassium, and work on discharging him to [facility]. All reviews [facility] for IV antibiotics unless TCU would take him. I will discuss this with the case management. He has got multiple problems Legionella, pneumonia, rhabdomyolysis, sepsis, left lower lobe pneumonia, anemia, dehydration, renal insufficiency, and low potassium. Poncho Caruso DO [facility] HOSPITALSalomón
--- NOTE | 2017-06-15 15:03 | CP.PCM.PN ---
Subjective - Date & Time of Evaluation Date of Evaluation: 06/15/17 Time of Evaluation: 12:35 - Subjective Subjective: Comfortable, feeling better. No fevers overnight. Objective - Vital Signs/Intake and Output Vital Signs (last 24 hours): Temp Pulse Resp BP Pulse Ox 99 F 109 H 19 136/91 H 100 06/15/17 08:58 06/15/17 08:58 06/15/17 08:58 06/15/17 08:58 06/15/17 08:58 Intake and Output: 06/15/17 06/15/17 06:59 18:59 Intake Total 240 240 Output Total 800 1000 Balance -560 -760 - Medications Medications: Current Medications Acetaminophen (Tylenol 325mg Tab) 650 mg PO Q6H PRN PRN Reason: Temperature Last Admin: 06/12/17 08:22 Dose: 650 mg Aspirin (Ecotrin) 81 mg PO DAILY [facility] Last Admin: 06/15/17 09:17 Dose: 81 mg Clopidogrel Bisulfate (Plavix) 75 mg PO DAILY [facility] Last Admin: 06/15/17 09:17 Dose: 75 mg Ferrous Sulfate (Feosol) 324 mg PO TID [facility] Last Admin: 06/15/17 09:17 Dose: 324 mg Heparin Sodium (Porcine) (Heparin) 5,000 units SC Q12 [facility] PRN Reason: Protocol Last Admin: 06/15/17 09:18 Dose: 5,000 units Lactated Ringer's (Lactated Ringer's) 1,000 mls @ 125 mls/hr IV .Q8H [facility] Last Admin: 06/15/17 08:56 Dose: 125 mls/hr Levofloxacin/Dextrose (Levaquin 750mg) 750 mg in 150 mls @ 100 mls/hr IVPB Q48H [facility] Last Admin: 06/14/17 15:46 Dose: 100 mls/hr Magnesium Sulfate/Dextrose (Magnesium Sulfate 1 Gm/100 Ml D5w) 1 gm in 100 mls @ 100 mls/hr IVPB ONCE ONE Stop: 06/15/17 11:31 Magnesium Oxide (Mag-Ox) 400 mg PO DAILY [facility] Metoprolol Succinate (Toprol Xl) 50 mg PO BRK [facility] Last Admin: 06/15/17 08:57 Dose: 50 mg Multivitamins (Thera Tab) 1 tab PO 0800 [facility] Last Admin: 06/15/17 08:56 Dose: 1 tab Pantoprazole Sodium (Protonix Ec Tab) 40 mg PO 0600 [facility] Last Admin: 06/15/17 06:45 Dose: 40 mg - Labs Labs: 06/15/17 06:20 06/15/17 06:20 PT 12.0 Seconds (9.9-11.8) H 06/11/17 09:45 INR 1.11 (0.93-1.08) H 06/11/17 09:45 APTT 38.1 Seconds (23.7-30.8) H 06/11/17 09:45 - Constitutional Appears: Non-toxic, No Acute Distress - Head Exam Head Exam: NORMAL INSPECTION - ENT Exam ENT Exam: Mucous Membranes Moist - Neck Exam Neck Exam: absent: Meningismus - Respiratory Exam Respiratory Exam: Decreased Breath Sounds - Cardiovascular Exam Cardiovascular Exam: +S1, +S2 - GI/Abdominal Exam GI & Abdominal Exam: Soft. absent: Tenderness Assessment and Plan - Assessment and Plan (Free Text) Plan: Assessment Severe sepsis with acute renal failure due to left lower lobe community- acquired pneumonia with Legionella chronic renal failure CAD S/P PCI dyslipidemia HTN Plan Continue Levaquin (day 4) - renally adjusted; continue to monitor renal function and clinical response; will need 2 weeks of antibiotics discussed with Dr. Caruso
[2017-06-15] MEDS ORDERED: Potassium & Sodium Phosphate PO SCH (15:15)
[2017-06-15] MEDS ORDERED: Lactated Ringer's 1,000 ML IV SCH (16:10)
[2017-06-15 18:59] VITALS: O2SAT 97
[2017-06-15 21:03] VITALS: RESP 20
[2017-06-16 00:27] VITALS: BP 149/92; PULSE 85; TEMP 98.6
[2017-06-16] MEDS: Pantoprazole 40 mg EC Tab PO SCH (06:57)
[2017-06-16 07:37] LABS: BASO # 0.02 K/mm3 (0.0-2.0); BASO % 0.2 % (0.0-3.0); EOS # 0.3 (0.0-0.7); GRAN # 6.8 (1.4-6.5); GRAN % 74.5 % (50.0-68.0); HEMATOCRIT 30.3 % (42.0-52.0); LYMPH # 1.4 (1.2-3.4); LYMPH % 15.3 % (22.0-35.0); MEAN CELL VOLUME 78.9 fl (80.0-105.0); MEAN CORPUSCULAR HEMOGLOBIN 27.3 pg (25.0-35.0); MEAN CORPUSCULAR HGB CONC 34.7 g/dl (31.0-37.0); MONO # 0.6 (0.1-0.6); RED CELL DISTRIBUTION WIDTH 15.3 % (11.5-14.5); WHITE BLOOD COUNT 9.1 10^3/ul (4.5-11.0)
[2017-06-16 08:06] LABS: ALB/GLOB RATIO 0.6 (1.1-1.8); BILIRUBIN,TOTAL 0.9 mg/dL (0.2-1.3); CALCIUM 8.1 mg/dL (8.4-10.5); MAGNESIUM 1.6 mg/dL (1.7-2.2); PHOSPHOROUS 3.2 mg/dL (2.5-4.5); POTASSIUM 3.4 mmol/L (3.6-5.0); TOTAL PROTEIN 7.1 g/dL (5.8-8.3)
[2017-06-16] MEDS ORDERED: Potassium Chloride 20 mEq ER Tab PO SCH (08:30)
--- NOTE | 2017-06-16 08:37 | PN ---
FOLLOWUP NEPHROLOGY NOTE DATE: 06/15/2017 CHIEF COMPLAINT: None at this time. HISTORY OF PRESENT ILLNESS AND REVIEW OF SYSTEMS : The patient feels well. History is limited because of his slurred speech and history of stroke. Denies any shortness of breath, cough, phlegm, fever, chills, or urinary complaints. PHYSICAL EXAMINATION: VITAL SIGNS: Stable. Afebrile, pulse is 91, blood pressure 143/87, and saturation is well maintained. LUNGS: Bilateral vesicular sounds clear. CARDIOVASCULAR: S1 and S2 normal. No rub or gallop. ABDOMEN: Soft, nontender. No organomegaly could be appreciated. EXTREMITY: No edema. SKIN: No rashes or ulceration. NECK: Thyroid is normal. No lymph adenopathy in the neck. NEUROLOGIC: The patient is alert and awake, but he just had stroke and has a slurred speech. LABORATORY DATA: White blood cell count 8.8, hemoglobin 8, and platelet 166. Sodium is 142, potassium 3.4, bicarbonate 23, creatinine 1.7 slightly improved. Magnesium is 1.5 and phosphorus 2.3. His AST and ALT has improved. CPK is down to 1239. His ISV and SPEP has been pending. CURRENT MEDICATIONS: Reviewed. ASSESSMENT: 1. Oliguric acute kidney injury likely due to rhabdomyolysis. 2. Legionella pneumonia. 3. Severe rhabdomyolysis. 4. History of hypertension. 5. Hyperlipidemia. 6. History of stroke. 7. Coronary artery disease with stent. 8. Hypophosphatemia. 9. Hypomagnesemia. RECOMMENDATIONS: Renal function slowly improving, anemia workup in progress, CPK level has also decreased. Continue IV fluid. Electrolytes are stable and supplemented. Blood pressure is under better control at this time. Again, consider DARCY or ARB as an outpatient once his function has improved. Follow anemia workup. Stable from renal prospective for discharge. Please call if any questions. Johnathan Aragon MD
[2017-06-16] MEDS: Multivitamin Therapeutic Tab PO SCH (09:30)
[2017-06-16] MEDS: Metoprolol Succinate 50 mg XL Tab PO SCH (09:30)
[2017-06-16] MEDS ORDERED: Magnesium Oxide 400 mg Tab UD PO SCH (10:00)
--- NOTE | 2017-06-16 10:59 | DS ---
HISTORY OF PRESENT ILLNESS: He is here for legionella pneumonia, sepsis, rhabdomyolysis, renal insufficiency, dehydration, low potassium. He was transfused yesterday. His hemoglobin is above 10. I hoping to get him to rehab today. We will see if case management and social workers can help us. He is in bed. He is alert. He does not want to be in the hospital anymore. PHYSICAL EXAMINATION: VITAL SIGNS: He has a 98.6 temperature, 85 pulse, 149/92 blood pressure, 20 respiratory rate. HEENT: Head is atraumatic and normocephalic. HEART: Regular rate. LUNGS: Clear to auscultation. ABDOMEN: Soft. EXTREMITIES: No edema. He is weak. He needs help with walking. LABORATORY DATA: He has 9.1 white count, 10.5 hemoglobin, 30.3 hematocrit, 211 platelets. Sodium 144, potassium is 3.4. I am not going to replace potassium. I am going to put him on potassium 20 mEq daily starting today. His BUN is 28, creatinine 1.7 better. EGFR is 42. His sugars are 101. Calcium is 8.1. Phosphorus is 3.2. Magnesium 1.6. Total bilirubin is 0.9. AST is 234. ALT is 109 and alkaline phosphatase is 130. ASSESSMENT AND PLAN: Overall, I think he is improved since he has been here. He is being seen by infectious disease, cardiology and renal. He is here for severe sepsis with acute renal failure, left lower lobe pneumonia, legionella, chronic renal failure, and hopefully can get him to rehab today that is my plan. I will discuss with case management and hospice social worker. Poncho Caruso DO
--- NOTE | 2017-06-16 13:51 | CP.PCM.PN ---
Subjective - Date & Time of Evaluation Date of Evaluation: 06/16/17 Time of Evaluation: 12:25 - Subjective Subjective: Comfortable in bed, not in distress, afebrile. Objective - Vital Signs/Intake and Output Vital Signs (last 24 hours): Temp Pulse Resp BP Pulse Ox 98.6 F 85 20 149/92 H 97 06/16/17 00:25 06/16/17 00:25 06/16/17 00:25 06/16/17 00:25 06/15/17 16:00 Intake and Output: 06/16/17 06/16/17 06:59 18:59 Intake Total 2270 Output Total 2750 Balance -480 - Medications Medications: Current Medications Acetaminophen (Tylenol 325mg Tab) 650 mg PO Q6H PRN PRN Reason: Temperature Last Admin: 06/12/17 08:22 Dose: 650 mg Aspirin (Ecotrin) 81 mg PO DAILY [facility] Last Admin: 06/16/17 09:30 Dose: 81 mg Clopidogrel Bisulfate (Plavix) 75 mg PO DAILY [facility] Last Admin: 06/16/17 09:29 Dose: 75 mg Ferrous Sulfate (Feosol) 324 mg PO TID [facility] Last Admin: 06/16/17 09:30 Dose: 324 mg Heparin Sodium (Porcine) (Heparin) 5,000 units SC Q12 [facility] PRN Reason: Protocol Last Admin: 06/16/17 09:29 Dose: 5,000 units Lactated Ringer's (Lactated Ringer's) 1,000 mls @ 50 mls/hr IV .Q20H [facility] Last Admin: 06/15/17 18:02 Dose: 50 mls/hr Magnesium Oxide (Mag-Ox) 400 mg PO DAILY [facility] Last Admin: 06/16/17 09:30 Dose: 400 mg Metoprolol Succinate (Toprol Xl) 50 mg PO BRK [facility] Last Admin: 06/16/17 09:30 Dose: 50 mg Multivitamins (Thera Tab) 1 tab PO 0800 [facility] Last Admin: 06/16/17 09:30 Dose: 1 tab Pantoprazole Sodium (Protonix Ec Tab) 40 mg PO 0600 [facility] Last Admin: 06/16/17 06:57 Dose: 40 mg Potassium Chloride (K-Dur 20 Meq Er Tab) 20 meq PO BRK [facility] Last Admin: 06/16/17 09:30 Dose: 20 meq - Labs Labs: 06/16/17 07:00 06/16/17 07:00 PT 12.0 Seconds (9.9-11.8) H 06/11/17 09:45 INR 1.11 (0.93-1.08) H 06/11/17 09:45 APTT 38.1 Seconds (23.7-30.8) H 06/11/17 09:45 - Constitutional Appears: Non-toxic, No Acute Distress - Head Exam Head Exam: NORMAL INSPECTION - Neck Exam Neck Exam: absent: Meningismus - Respiratory Exam Respiratory Exam: Decreased Breath Sounds - Cardiovascular Exam Cardiovascular Exam: +S1, +S2 - GI/Abdominal Exam GI & Abdominal Exam: Soft. absent: Tenderness Assessment and Plan - Assessment and Plan (Free Text) Plan: Assessment Severe sepsis with acute renal failure due to left lower lobe community- acquired pneumonia with Legionella chronic renal failure CAD S/P PCI dyslipidemia HTN Plan Continue Levaquin (day 5) - his GFR is now 50 and we have changed back to regular dosing 750 mg daily; continue to monitor renal function and clinical response; will need 2 weeks of antibiotics discussed with Dr. Caruso
[2017-06-16 20:52] LABS: BETA 1 GLOBULIN 0.4 g/dL (0.4-0.6); BETA 2 GLOBULIN 0.5 g/dL (0.2-0.5); GAMMA GLOBULIN 1.9 g/dL (0.8-1.7)
--- NOTE | 2017-06-17 08:13 | PN ---
DATE: 06/16/2017 NEPHROLOGY FOLLOWUP CHIEF COMPLAINT: None at this time. Patient has planned for discharge today. HISTORY OF PRESENT ILLNESS AND REVIEW OF SYSTEMS: The patient denies any new complaints. No breathing issues. No chest pain or palpitations. No leg swelling. Making urine okay and the patient planned for discharged to the rehab. PHYSICAL EXAMINATION: GENERAL: The patient appeared comfortable, not in acute distress, pleasant, cooperative. VITAL SIGNS: Stable, afebrile, pulse is 85, blood pressure 149/92. NECK: Lymphadenopathy around the neck. LUNGS: Bilateral vesicular breath sounds, clear anteriorly. CARDIOVASCULAR: S1 and S2 normal. No murmur. ABDOMEN: Soft and nontender. No organomegaly. EXTREMITIES: No edema. SKIN: No rashes or lesion. GENITOURINARY: Kidney and bladder not palpable. LABORATORY DATA: Workup showed white blood cell count 9.1, hemoglobin 10.5, platelet count is 211. Sodium is 144, potassium 3.4, bicarbonate is 25, creatinine is 1.7, is improved. CPK is also decreased to 881. Magnesium is 1.6, phosphorus is 3.2. AST and ALT is also improved. CURRENT MEDICATION: Reviewed. ASSESSMENT: 1. Acute kidney injury due to rhabdomyolysis, improved. 2. Severe rhabdomyolysis. 3. Legionella pneumonia. 4. Hypophosphatemia 5. Hypomagnesemia. 6. Hypokalemia. 7. History of hypertension. 8. Hyperlipidemia. 9. History of stroke. 10. Coronary artery disease status post stent. RECOMMENDATION: Renal function, improving, blood pressure under better control. He is on metoprolol. I would consider DARCY inhibitor or ARB as an outpatient when renal function stable. We will follow anemia workup with SPEP and immunofixation. He got 1 unit of PRBC. Continue iron supplementation. Then supplement electrolytes. Then the patient is stable for discharge from renal failure perspective. He will follow up with me in 2 weeks post discharge. All questions were answered. Johnathan Aragon MD
[2017-06-17] MEDS ORDERED: levoFLOXacin 750 mg in D5W 750 MG/150 ML BAG IVPB SCH (10:00)
== END 2017-06-16 20:07 | DRG 871 ==
LOC: ED 09:34 → ERH 12:58 → CCU 14:08 → 5RSO 06-13 11:36
PROVIDERS: ADMIT Family Medicine; ATTEND Family Medicine
PROC: 30233N1 Transfusion of Nonautologous Red Blood Cells into Peripheral Vein, Percutaneous Approach (ICD-10-PCS; principal; 2017-06-15)
DX: A41.9 Sepsis, unspecified organism (principal); A48.1 Legionnaires' disease; N17.9 Acute kidney failure, unspecified; M62.82 Rhabdomyolysis; R65.20 Severe sepsis without septic shock; E86.0 Dehydration; I12.9 Hypertensive chronic kidney disease with stage 1 through stage 4 chronic kidney disease, or unspecified chronic kidney disease; N18.9 Chronic kidney disease, unspecified; E83.39 Other disorders of phosphorus metabolism; E83.42 Hypomagnesemia; I25.118 Atherosclerotic heart disease of native coronary artery with other forms of angina pectoris; D64.9 Anemia, unspecified; E78.5 Hyperlipidemia, unspecified; F17.210 Nicotine dependence, cigarettes, uncomplicated; M19.90 Unspecified osteoarthritis, unspecified site; R09.02 Hypoxemia; I69.328 Other speech and language deficits following cerebral infarction; Z95.5 Presence of coronary angioplasty implant and graft; Z79.82 Long term (current) use of aspirin

== ENCOUNTER 2017-10-12 07:27 | Day surgery (SDC) | payer BC ==
[2017-10-11 13:40] VITALS: BMI 28.2
[2017-10-12 08:00] LABS: BASO # 0.02 K/mm3 (0.0-2.0); BASO % 0.5 % (0.0-3.0); EOS # 0.1 (0.0-0.7); EOS % 2.1 % (1.5-5.0); GRAN # 1.51 (1.4-6.5); GRAN % 40.4 % (50.0-68.0); HEMOGLOBIN 9.8 g/dL (14.0-18.0); LYMPH # 1.9 (1.2-3.4); LYMPH % 51.1 % (22.0-35.0); MEAN CELL VOLUME 86.8 fl (80.0-105.0); MEAN CORPUSCULAR HEMOGLOBIN 27.6 pg (25.0-35.0); MEAN CORPUSCULAR HGB CONC 31.8 g/dl (31.0-37.0); MEAN PLATELET VOLUME 10.5 fl (7.0-11.0); MONO # 0.2 (0.1-0.6); MONO % 5.9 % (1.0-6.0); RBC 3.55 10^6/uL (3.5-6.1); RED CELL DISTRIBUTION WIDTH 14.5 % (11.5-14.5); WHITE BLOOD COUNT 3.7 10^3/ul (4.5-11.0)
[2017-10-12 08:08] LABS: BLOOD UREA NITROGEN 16 mg/dL (7-21); CALCIUM 9.6 mg/dL (8.4-10.5); GFR AFRICAN-AMERICAN > 60; GFR NON-AFRICAN AMERICAN 57; HDL CHOLESTEROL 30 mg/dL (29-60)
[2017-10-12 08:19] LABS: LDL CHOLESTEROL 91 mg/dL (0-129)
[2017-10-12 08:28] LABS: INR 1.15 (0.93-1.08); PROTHROMBIN TIME 13.2 SECONDS (9.4-12.5)
[2017-10-12] MEDS ORDERED: Famotidine 20mg/50ml 20 MG/50 ML BAG IVPB ONE (09:25)
[2017-10-12] MEDS ORDERED: DiphenhydrAMINE 50 mg/ml Inj ONE (09:25)
--- NOTE | 2017-10-12 10:00 | CARD ---
APPROVED REPORT EKG Measurement Heart [id number] 128P6 [id number] <Conclusion> Normal sinus rhythm Voltage criteria for left ventricular hypertrophy Nonspecific T wave abnormality Abnormal ECG
[2017-10-12] MEDS ORDERED: Lidocaine 2% Inj (20ml) ONE (11:00)
[2017-10-12] MEDS ORDERED: Midazolam 2 MG/2 ML VIAL ONE ×2 (11:01→12:01)
[2017-10-12] MEDS ORDERED: HEPARIN SODIUM/NS 1,000 ML IV ONE (11:01)
[2017-10-12] MEDS ORDERED: Iodixanol 320 MG/ML 200 ML BOTTLE IV ONE (11:01)
[2017-10-12] MEDS ORDERED: Iohexol 350mgl/ml 50 ML ONE (11:01)
[2017-10-12] MEDS ORDERED: Iodixanol 320 MG/ML 100 ML BOTTLE IV ONE (11:01)
[2017-10-12] MEDS ORDERED: Flumazenil 0.1 mg/ml Inj (5ml) IVP ONE (12:17)
[2017-10-12] MEDS ORDERED: Sodium Chloride 0.9% 1,000 ML IV SCH (13:00)
[2017-10-13 00:05] VITALS: RESP 22
--- NOTE | 2017-10-13 01:08 | CARDCATH ---
PROCEDURE DATE: 10/12/2017 HISTORY: The patient is a 57-year-old male with multiple cardiac risk factors including smoking, hypertension, hypercholesterolemia and noncompliance, who has had previous PTCA in the past, who presents with unstable angina. Because of these progressing symptoms, a cardiac catheterization was recommended. PROCEDURE: Left heart catheterization with coronary arteriography, left ventriculogram followed by PTCA and stent of an LAD and diagonal vessel. The right femoral artery was cannulated with a 6-Ukrainian sheath which was then exchanged to a 7-Ukrainian sheath. There were no complications. I performed moderate sedation which included the presence of an independent trained observer that assisted in the monitoring the patient's level of consciousness and physiologic status. After administration of Versed and fentanyl, my intra service time was 30 minutes. FINDINGS: The findings on catheterization revealed a left ventricle that was within normal limits. The left ventricle contracted normally. Estimated ejection fraction of 60%. The patient had a right dominant circulation. The RCA revealed a 50% ostial stenoses followed by 80% mid RCA stenoses. The left main artery was unremarkable. The LAD revealed diffuse atherosclerosis throughout its tree with a 95% stenosis in the midportion of the LAD at the takeoff of a diagonal vessel. There was pinching of the ostium of the diagonal vessel with the coronary lesion. The circumflex artery and obtuse marginal branches were free of significant disease. The patient was started on intravenous Angiomax. Using a 7-Ukrainian guiding catheter, the left main artery was engaged. An ATW wire was used to cross the diagonal vessel, there was a second ATW wire that was used through the critical lesion in the LAD. A 2.0 balloon was utilized to dilate the ostium of the diagonal vessel with a 2.5 balloon which was utilized to predilate the LAD lesion. A 2.5 x 15 mm drug-eluting stent was placed and deployed at 16 ounces of pressure in the LAD. Repeat coronary arteriography revealed resolution of the critical lesion with VENKAT III flow down the LAD and no residual stenoses. There was a 50% ostial stenosis of the diagonal vessel with VENKAT III flow which was not again manipulated. The patient tolerated the procedure well. Manual compression will be used to close the femoral artery site. In summary, the procedure was successful of PTCA and stent of a 95% mid LAD lesion at the takeoff of a diagonal vessel. A drug-eluting stent was utilized in the LAD with only used for the ostium of the diagonal vessel. LV function is normal. Given these findings, the patient will need to remain on aspirin indefinitely and Plavix for at least a year. We will bring him back in 1 week for PTCA and stent of the mid RCA stenoses. Deni Shay MD
[2017-10-13 06:33] VITALS: TEMP 98.1; O2SAT 99
[2017-10-13 06:52] LABS: GRAN # 7.56 (1.4-6.5); GRAN % 81.4 % (50.0-68.0); HEMOGLOBIN 9.5 g/dL (14.0-18.0); LYMPH # 1.4 (1.2-3.4); LYMPH % 14.8 % (22.0-35.0); MEAN CELL VOLUME 86.9 fl (80.0-105.0); MEAN CORPUSCULAR HEMOGLOBIN 27.7 pg (25.0-35.0); MEAN CORPUSCULAR HGB CONC 31.9 g/dl (31.0-37.0); MEAN PLATELET VOLUME 11.5 fl (7.0-11.0); MONO # 0.4 (0.1-0.6); MONO % 3.8 % (1.0-6.0); RBC 3.43 10^6/uL (3.5-6.1); RED CELL DISTRIBUTION WIDTH 14.8 % (11.5-14.5); WHITE BLOOD COUNT 9.3 10^3/ul (4.5-11.0)
[2017-10-13 07:56] LABS: BLOOD UREA NITROGEN 20 mg/dL (7-21); CALCIUM 9.6 mg/dL (8.4-10.5); GFR AFRICAN-AMERICAN > 60; GFR NON-AFRICAN AMERICAN 57
[2017-10-13] MEDS ORDERED: Metoprolol Succinate 25 mg XL Tab PO SCH (08:00)
--- NOTE | 2017-10-13 08:06 | HP ---
HISTORY OF PRESENT ILLNESS: I was called to see him by Dr. Deni Shay. He just finished doing a cardiac cath and stent placement. He will be watched overnight. He is awake and alert, comfortable at this time. He is 57-year-old man, who has cardiac cath by Dr. Shay, now he is lying flat on the bed. He had chest pain with shortness of breath. He was out of his metoprolol and Catapres and amlodipine. He was told to take his Plavix and aspirin, we yet to give him his medications, get the medications. PAST MEDICAL HISTORY: CAD, high cholesterol, hypertension, CVA, arthritis, light stroke two to three months ago, medications. FAMILY HISTORY: Cancer with his mother. PAST SURGICAL HISTORY: Cardiac stent x3 and cardiac cath and stents x4. SOCIAL HISTORY: He quit smoking on 09/26/2017. No alcohol. No drugs. He has CAD. He has chest pain. He wears glasses. He is alert and oriented. He has arthritis. Poor dentition. He gets constipation. Bladder hesitancy problems. He had a left heart cardiac cath with stent placement. No acute vision or hearing changes at this time. No throat issues. He did have chest pain, not now. No shortness of breath now either. No abdominal pain. No nausea. No vomiting. No leg pains. ALLERGIES: HE IS ALLERGIC TO SHRIMP. PHYSICAL EXAMINATION VITAL SIGNS: He has a 97.3 temperature, 65 pulse, 165/91 blood pressure, 20 respiratory rate, and 100% O2 saturation on room air. HEENT: Head is atraumatic, normocephalic. Throat is moist. NECK: Supple. HEART: Regular rate. LUNGS: Decreased breath sounds, but clear. ABDOMEN: Soft. Mildly obese. Nontender. Positive bowel sounds. EXTREMITIES: No edema. NEUROLOGIC: He is awake, flat, status post cath. Alert and oriented x3. Cranial nerves II through XII grossly intact. LABORATORY DATA: He has 3.7 white count, 9.8 hemoglobin, 30.8 hematocrit with 294 platelets, and 1.15 INR. He has 142 sodium, potassium 3.8, BUN 16, creatinine 1.3, GFR 57, sugar is 113, and calcium is 9.6. Triglycerides of 193. Cholesterol is 166. LDL is 91. HDL is 30. MEDICATIONS: He is on Catapres, Ecotrin, Lipitor, Norvasc, Plavix, IV fluids, and metoprolol. IMPRESSION: He will have blood test tomorrow. Hopefully, after the visit, we can discharge him tomorrow. This is a history and physical on [facility] with CAD, status post stent, hypertension, high cholesterol. Poncho Caruso DO MTDD
[2017-10-13 09:05] VITALS: BP 153/70; PULSE 94
--- NOTE | 2017-10-13 09:41 | DS ---
HISTORY OF PRESENT ILLNESS: I saw him resting comfortably in bed. He slept very well last night and he is in good spirits. He has had no complaints. No bleeding, no chest pain, no shortness of breath, and no abdominal pain. He know he is going to go home today after Dr. Shay sees him. He will be going home on his clonidine 0.1 twice a day, aspirin 81 mg daily, Lipitor 40 mg daily, Norvasc 5 mg daily, Plavix 75 mg daily, and metoprolol XL 25 mg daily. PHYSICAL EXAMINATION: VITAL SIGNS: Are 98.1 temperature, 90 pulse, 150/76 blood pressure, 22 respiratory rate, and 99% O2 saturation on room air. HEENT: His head is atraumatic and normocephalic. CARDIOVASCULAR: His heart is regular rate. LUNGS: Clear to auscultation. GASTROINTESTINAL: Abdomen is soft, mildly obese, and nontender. Positive bowel sounds. No guarding and no rebound. No CVA tenderness. EXTREMITIES: No edema. LABORATORY DATA: He had a 9.3 white count, 9.5 hemoglobin and 29.8 hematocrit with 282 platelets. He had 139 sodium, potassium is 4.1, BUN is 20, and creatinine is 1.3. GFR is 67, sugar is 146, and calcium is 9.6. ASSESSMENT AND PLAN: He should do very well, will follow up with his primary care doctor and Dr. Shay. be discharged after Dr. Shay sees him. Poncho Caruso DO [facility]
--- NOTE | 2017-10-13 11:22 | CARD ---
APPROVED REPORT EKG Measurement Heart [id number] 132P10 [id number] <Conclusion> Normal sinus rhythm Possible Left atrial enlargement Left ventricular hypertrophy Nonspecific T wave abnormality Prolonged QT, new
--- NOTE | 2017-10-13 12:24 | PN ---
DATE: 10/13/2017 CARDIOLOGY FOLLOWUP SUBJECTIVE: The patient is asymptomatic post PTCA and stent. PHYSICAL EXAMINATION: VITAL SIGNS: Blood pressure 153/70 and heart rate in the 90s. NECK: Negative JVD. LUNGS: Without rales. HEART: S1 and S2. EXTREMITIES: Without edema. Right groin site is stable. LABORATORY DATA: Hemoglobin is 9.5. BUN and creatinine unremarkable. The glucose is 146. IMPRESSION: 1. Stable post percutaneous transluminal coronary angioplasty and stent of a critical left anterior descending artery. 2. Multivessel coronary artery disease. 3. Diabetes mellitus. 4. Hypercholesterolemia. 5. Probable chronic obstructive pulmonary disease. 6. Nicotine addiction. PLAN: Given these findings, the patient is stable for discharge. I have discussed with the patient cardiac risk reduction program, which requires that he has stopped smoking and stays compliant with medications including Plavix, which will be needed to be taken for at least a year. We will bring him back next week for PTCA and stent of an RCA. Deni Shay MD
== END 2017-10-13 11:07 | disposition home or self-care (01) ==
LOC: CATH 07:27 → 2RSO 13:41 → CATH 10-13 11:07
PROVIDERS: ATTEND Family Medicine
DX: I25.10 Atherosclerotic heart disease of native coronary artery without angina pectoris (principal); I10 Essential (primary) hypertension; E11.8 Type 2 diabetes mellitus with unspecified complications; E78.00 Pure hypercholesterolemia, unspecified; F17.200 Nicotine dependence, unspecified, uncomplicated; Z95.5 Presence of coronary angioplasty implant and graft; Z79.82 Long term (current) use of aspirin; M19.90 Unspecified osteoarthritis, unspecified site; Z86.73 Personal history of transient ischemic attack (TIA), and cerebral infarction without residual deficits
CPT/HCPCS: 36415; 80048; 80061; 85025; 85610; 85730; 86850; 86900; 92920; 93005; 93458; 99152; 99153; C1725 ×2; C1769 ×2; C1874; C1887; C1894; C2629; C9600; J0583; J1200; J1644; J2250; J2930; J3010; J7030; J7040; Q9967

== ENCOUNTER 2018-04-03 20:42 | Inpatient (IN) | payer BC ==
--- NOTE | 2018-04-03 21:11 | ED PDOC ---
Arrival/HPI - General Chief Complaint: Shortness Of Breath Time Seen by Provider: 04/03/18 20:57 - History of Present Illness Narrative History of Present Illness (Text): 57 y/o M c PMHx CAD s/p stents, CKD, anemia p/w shortness of breath and dizziness x 1 week. Shortness of breath is worsened by exertion. He denies fever , cough, chest pain, leg swelling. Dizziness is described as a lightheadedness, worse when sitting or standing up. Denies syncope, bleeding, vomiting. Past Medical History - Infectious Disease Hx of Infectious Diseases: None - Cardiac Hx Pacemaker: No - Pulmonary Hx Respiratory Disorders: Yes (SMOKED CIGARETTES 3/D) - Neurological Hx Paralysis: No - Hematological/Oncological Hx Blood Transfusions: No - Musculoskeletal/Rheumatological Hx Musculoskeletal Disorders: Yes - Psychiatric Hx Emotional Abuse: No Hx Physical Abuse: No Hx Substance Use: No - Anesthesia Hx Anesthesia Reactions: Yes ("I WAS OVERSEDATED") Hx Malignant Hyperthermia: No - Suicidal Assessment Feels Threatened In Home Enviroment: No Family/Social History Family/Social History: No Known Family HX Smoking Status: Former Smoker Hx Alcohol Use: No Hx Substance Use: No Allergies/Home Meds Allergies/Adverse Reactions: Allergies Iodinated Contrast- Oral and IV Dye Allergy (Verified 04/03/18 20:51) ANAPHYLAXIS shrimp Allergy (Verified 04/03/18 20:50) RASH Review of Systems - Physician Review All systems were reviewed & negative as marked: Yes - Review of Systems Constitutional: absent: Fevers Cardiovascular: absent: Chest Pain Physical Exam - Physical Exam Narrative Physical Exam (Text): Gen: NAD Head: NC/AT Eyes: PERRL ENT: MMM Neck: Supple, no JVD Chest: No tenderness CV: Regular rate, normal S1S2 Lungs: CTA b/l. Pulse oximetry 100% on room air Abd: Soft, NT Back: No CVA tenderness Extremities: No edema Neuro: Alert, no focal deficit Skin: No rash Vital Signs Temp Pulse Resp BP Pulse Ox 04/03/18 21:51 20 100 04/03/18 20:46 97.7 F 88 18 122/65 100 Medical Decision Making ED Course and Treatment: EKG NSR 76 bpm, noST /T wave changes. CXR no consolidation or infiltrate. No pulmonary edema. Hemoglobin 4. Transfusion consent obtained and transfusion ordered. Guaiac positive. Dr Caruso accepts patient to his service and recommends Dr. Elmore for GI consultation. - Lab Interpretations Lab Results: 04/03/18 21:33 04/03/18 21:33 Lab Results 04/03/18 21:33: PT 14.1 H, INR 1.23 H, APTT 31.4 04/03/18 21:33: Sodium 144, Potassium 3.2 L, Chloride 107, Carbon Dioxide 24, Anion Gap 16, BUN 10, Creatinine 1.2, Est GFR ( Amer) > 60, Est GFR (Non- Af Amer) > 60, Random Glucose 99, Calcium 8.9, Total Bilirubin 0.3, AST 32, ALT 26, Alkaline Phosphatase 117, Total Creatine Kinase 124, Troponin I < 0.01 D, NT-Pro-B Natriuret Pep 278, Total Protein 8.3, Albumin 3.6, Globulin 4.7, Albumin/Globulin Ratio 0.8 L 04/03/18 21:33: WBC 4.8 D, RBC 2.50 L, Hgb 4.6 L* D, Hct 16.7 L*, MCV 66.8 L D , MCH 18.4 L, MCHC 27.5 L, RDW 18.8 H, Plt Count 244, MPV 10.8, Gran % 57.8, Lymph % (Auto) 33.4, [place] % (Auto) 6.7 H, Eos % (Auto) 1.7, Baso % (Auto) 0.4, Gran # 2.75, Lymph # (Auto) 1.6, [place] # (Auto) 0.3, Eos # (Auto) 0.1, Baso # ( Auto) 0.02 - RAD Interpretation Radiology Orders: 04/03/18 21:03 CHEST PORTABLE [RAD] Stat Disposition/Present on Arrival - Present on Arrival Any Indicators Present on Arrival: No History of DVT/PE: No History of Uncontrolled Diabetes: No Urinary Catheter: No History of Decub. Ulcer: No History Surgical Site Infection Following: None - Disposition Have Diagnosis and Disposition been Completed?: Yes Diagnosis: GI bleed, Symptomatic anemia Disposition: HOSPITALIZED Disposition Time: 22:42 Patient Plan: Admission, Telemetry Condition: GUARDED Forms: [employer] (Swedish)
[2018-04-03 21:59] LABS: ALB/GLOB RATIO 0.8 (1.1-1.8); ALBUMIN 3.6 g/dL (3.0-4.8); ALT/SGPT 26 U/L (7-56); AST/SGOT 32 U/L (17-59); BLOOD UREA NITROGEN 10 mg/dL (7-21); CALCIUM 8.9 mg/dL (8.4-10.5); GFR AFRICAN-AMERICAN > 60; GFR NON-AFRICAN AMERICAN > 60
[2018-04-03 22:02] LABS: BASO # 0.02 K/mm3 (0.0-2.0); BASO % 0.4 % (0.0-3.0); EOS # 0.1 (0.0-0.7); EOS % 1.7 % (1.5-5.0); GRAN # 2.75 (1.4-6.5); GRAN % 57.8 % (50.0-68.0); LYMPH # 1.6 (1.2-3.4); LYMPH % 33.4 % (22.0-35.0); MEAN CELL VOLUME 66.8 fl (80.0-105.0); MEAN CORPUSCULAR HEMOGLOBIN 18.4 pg (25.0-35.0); MEAN CORPUSCULAR HGB CONC 27.5 g/dl (31.0-37.0); MEAN PLATELET VOLUME 10.8 fl (7.0-11.0); MONO # 0.3 (0.1-0.6); MONO % 6.7 % (1.0-6.0); RBC 2.5 10^6/uL (3.5-6.1); RED CELL DISTRIBUTION WIDTH 18.8 % (11.5-14.5); WHITE BLOOD COUNT 4.8 10^3/ul (4.5-11.0)
[2018-04-03 22:10] LABS: B-TYPE NATRIURETIC PEPTIDE 278 pg/mL (0-450)
[2018-04-03 22:12] LABS: HEMOGLOBIN 4.6 g/dL (14.0-18.0)
[2018-04-03 22:13] LABS: INR 1.23 (0.93-1.08); PARTIAL THROMBOPLASTIN TIME 31.4 Seconds (25.1-36.5); PROTHROMBIN TIME 14.1 SECONDS (9.4-12.5)
[2018-04-03 22:31] LABS: TROPONIN I < 0.01 ng/mL
[2018-04-04 00:48] LABS: PH,URINE 6.5 (4.7-8.0); URINE BILIRUBIN NEGATIVE (NEGATIVE); URINE BLOOD NEGATIVE (NEGATIVE); URINE GLUCOSE (UA) NEGATIVE (NEGATIVE); URINE LEUKOCYTE ESTERASE NEGATIVE Leu/uL (NEGATIVE); URINE PROTEIN TRACE mg/dL (<30 mg/dL); URINE UROBILINOGEN 0.2 E.U./dL (<1 E.U./dL)
[2018-04-04 00:49] LABS: URINE APPEARANCE CLEAR (CLEAR); URINE COLOR YELLOW (YELLOW)
[2018-04-04] MEDS ORDERED: Potassium Chloride 20 mEq ER Tab PO STA (00:58)
[2018-04-04 00:59] LABS: URINE RBC 0 - 2 /hpf (0-2)
[2018-04-04 01:00] LABS: URINE EPITHELIAL CELLS 0 - 2 /hpf (0-5); URINE WBC 0 - 2 /hpf (0-6)
--- NOTE | 2018-04-04 08:35 | RAD ---
Date of service: 04/03/2018 HISTORY: dyspnea COMPARISON: 06/11/2017 FINDINGS: LUNGS: No active pulmonary disease. PLEURA: No significant pleural effusion identified, no pneumothorax apparent. CARDIOVASCULAR: Normal. OSSEOUS STRUCTURES: No significant abnormalities. VISUALIZED UPPER ABDOMEN: Normal. OTHER FINDINGS: None. IMPRESSION: No active disease.
[2018-04-04] MEDS ORDERED: Barium Sulfate Susp 2.1% w/v, 2.0% w/w 450 mL Bottle PO ONE (08:46)
[2018-04-04] MEDS: Pantoprazole 40 mg EC Tab PO SCH (09:48)
[2018-04-04] MEDS: Metoprolol Succinate 25 mg XL Tab PO SCH (09:48)
[2018-04-04 10:19] LABS: MEAN CELL VOLUME 72.8 fl (80.0-105.0); MEAN CORPUSCULAR HEMOGLOBIN 22.3 pg (25.0-35.0); MEAN CORPUSCULAR HGB CONC 30.6 g/dl (31.0-37.0); RBC 3.01 10^6/uL (3.5-6.1); RED CELL DISTRIBUTION WIDTH 21.9 % (11.5-14.5); WHITE BLOOD COUNT 5.1 10^3/ul (4.5-11.0)
[2018-04-04 10:23] LABS: HEMOGLOBIN 6.7 g/dL (14.0-18.0)
[2018-04-04 10:48] LABS: ALB/GLOB RATIO 0.8 (1.1-1.8); ALBUMIN 3.4 g/dL (3.0-4.8); ALT/SGPT 19 U/L (7-56); AST/SGOT 34 U/L (17-59); BLOOD UREA NITROGEN 11 mg/dL (7-21); CALCIUM 8.6 mg/dL (8.4-10.5); GFR AFRICAN-AMERICAN > 60; GFR NON-AFRICAN AMERICAN > 60
--- NOTE | 2018-04-04 11:25 | HP ---
HISTORY OF PRESENT ILLNESS: I know Madhav for a few years. I see him when he comes to . He is a 57-year-old man who presents with shortness of breath and dizziness about a week. It gets worse, his shortness of breath with exertion and he was not sure what was going on. PAST MEDICAL HISTORY: Coronary artery disease with stents, chronic kidney disease and anemia in the past. He is still smoking cigarettes. He has got arthritis pains. FAMILY HISTORY: No known family history. SOCIAL HISTORY: He is still smoking. No alcohol. No drugs. ALLERGIES: IODINATED CONTRAST AND SHRIMP. REVIEW OF SYSTEMS: He is just short of breath with exertion. He is weak. No acute vision or hearing changes. No sore throat. No chest pain or palpitations. No shortness of breath or cough. No abdominal pain, nausea, vomiting, constipation or diarrhea. No blood. Extremities, moves all 4 extremities. He is a little bit weak. PHYSICAL EXAMINATION: VITAL SIGNS: He has a 97.7 temp, 88 pulse, 18 respiratory rate, 122/65 blood pressure, 100% O2 sat on room air. GENERAL: No acute distress. He is comfortable at rest. HEENT: Head is atraumatic, normocephalic. Extraocular muscles are intact. Pupils are equal and reactive to light. Throat is dry. NECK: Supple. No JVD. HEART: Regular rate. Normal S1, S2. LUNGS: Decreased breath sounds, but clear to auscultation. ABDOMEN: Soft, nontender. Positive bowel sounds. No guarding, no rebound, no CVA tenderness. EXTREMITIES: No edema. NEUROLOGIC: Cranial nerves II through XII grossly intact. No neurological deficits. LYMPHATICS: Thyroid midline. No palpable appreciable lymphadenopathy. LABORATORY DATA: His EKG with normal sinus rhythm. Chest x-ray, there are no infiltrates. On blood test, he has 4.8 white count, 4.6 hemoglobin quite anemic with a 16.7 and 244 platelets. Sodium is 144, his potassium is 3.2, they gave him potassium, chloride is 107, carbon dioxide 24, anion gap is 16, BUN 10, creatinine 1.2, GFR is greater than 60, sugar is 60, calcium is 8.9. Total bili is 0.3, AST is 32, ALT is 26 and alkaline phosphatase 117. Total creatinine kinase is 124. Troponin I is less than 0.01. BNP is 278. Total protein is 8.3, albumin is 3.6. IMPRESSION: So, he will have a consult with Gastroenterology. He has already had 2 units of blood transfusions. He had potassium replaced. I will put him back on his metoprolol. I added his blood pressure pills as needed. At the present, he is n.p.o. thinking that the GI might do a scope today. I have a plan of doing that. I will feed him. We will see what his blood tests are this morning and might need to have 2 more units of packed red blood cells. We will continue with aggressive treatment and care on Madhav Cabrera who is short of breath and quite anemic. We are trying to look for a source. I ordered a CAT scan. Poncho Caruso DO MTDD
--- NOTE | 2018-04-04 12:00 | CON ---
DATE: 04/04/2018 CARDIOLOGY CONSULTATION HISTORY OF PRESENT ILLNESS: The patient is a 57-year-old male who presents with progressive shortness of breath. PAST MEDICAL HISTORY: Includes multivessel PTCA and stent in the past. His last procedure was in September 2017, in which he underwent successful PTCA and stent of an RCA with drug-eluting stents. In addition, the patient has stents in his LAD and diagonal vessels. He denies angina, but does admit to shortness of breath. No cough, no fever, no angina is noted. It is unclear whether the stools were dark. SOCIAL HISTORY: The patient has no longer smokes. REVIEW OF SYSTEMS: A 14-point review of systems was reviewed in detail. Positive dyspnea. No angina. Negative pedal edema. No orthopnea. No PND. Positive exertional shortness of breath. PHYSICAL EXAMINATION VITAL SIGNS: Blood pressure is 112/69, heart rate is in the 70s. NECK: Negative JVD. LUNGS: Without rales. HEART: Reveals S1 and S2. EXTREMITIES: Without edema. LABORATORY DATA: EKG is unchanged. BUN and creatinine unremarkable. Troponin is negative x1. The hemoglobin is 4.6. IMPRESSION: 1. Marked anemia. 2. Gastrointestinal bleed. 3. Dyspnea. 4. Multivessel percutaneous transluminal coronary angioplasty and stent. 5. Hypercholesterolemia. 6. Hypertension. PLAN: Given these findings, we will stop his Plavix. Given that the patient has had at least 6 months of Plavix, the patient is reasonably safe to be off Plavix. He will need to be off Plavix given his GI bleed. Packed red blood cells have been ordered. The patient will need invasive GI workup a.s.naheedp. Deni Shay MD
--- NOTE | 2018-04-04 13:01 | CT ---
Date of service: 04/04/2018 PROCEDURE: CT Abdomen and Pelvis without intravenous contrast HISTORY: anemia COMPARISON: 06/11/2017 TECHNIQUE: Without contrast.. Contrast dose: Radiation dose: Total exam DLP = 516 mGy-cm. This CT exam was performed using one or more of the following dose reduction techniques: Automated exposure control, adjustment of the mA and/or kV according to patient size, and/or use of iterative reconstruction technique. FINDINGS: LOWER THORAX: There is some bronchiectasis at the left lung base at the site of previous pneumonia. LIVER: Unremarkable. No gross lesion or ductal dilatation. GALLBLADDER AND BILE DUCTS: Unremarkable. PANCREAS: Unremarkable. No gross lesion or ductal dilatation. SPLEEN: Unremarkable. ADRENALS: Unremarkable. No mass. KIDNEYS AND URETERS: Unremarkable. No hydronephrosis. No solid mass. VASCULATURE: Unremarkable. No aortic aneurysm. BOWEL: Unremarkable. No obstruction. No gross mural thickening. APPENDIX: Unremarkable. Normal appendix. PERITONEUM: Unremarkable. No free fluid. No free air. LYMPH NODES: Unremarkable. No enlarged lymph nodes. BLADDER: Unremarkable. REPRODUCTIVE: Unremarkable. BONES: No acute fracture. OTHER FINDINGS: None. IMPRESSION: No acute findings
--- NOTE | 2018-04-04 15:53 | RAD ---
Date of service: 04/04/2018 HISTORY: SOB COMPARISON: 04/03/2018 FINDINGS: LUNGS: No active pulmonary disease. PLEURA: No significant pleural effusion identified, no pneumothorax apparent. CARDIOVASCULAR: Normal. OSSEOUS STRUCTURES: No significant abnormalities. VISUALIZED UPPER ABDOMEN: Normal. OTHER FINDINGS: None. IMPRESSION: No active disease.
--- NOTE | 2018-04-04 16:47 | CARD ---
APPROVED REPORT Date of service: 04/03/2018 EKG Measurement Heart [id number] CO 124P0 [id number] <Conclusion> Normal sinus rhythm Normal ECG
[2018-04-05 06:42] LABS: MEAN CELL VOLUME 75.3 fl (80.0-105.0); MEAN CORPUSCULAR HGB CONC 31.8 g/dl (31.0-37.0); PLATELET COUNT 235 10^3/uL (120.0-450.0); RBC 4.09 10^6/uL (3.5-6.1); RED CELL DISTRIBUTION WIDTH 22.4 % (11.5-14.5); WHITE BLOOD COUNT 5.9 10^3/ul (4.5-11.0)
[2018-04-05 07:00] LABS: ALB/GLOB RATIO 0.8 (1.1-1.8); ALBUMIN 3.8 g/dL (3.0-4.8); ALT/SGPT 17 U/L (7-56); AST/SGOT 24 U/L (17-59); BLOOD UREA NITROGEN 10 mg/dL (7-21); CALCIUM 8.8 mg/dL (8.4-10.5); GFR AFRICAN-AMERICAN > 60; GFR NON-AFRICAN AMERICAN > 60
[2018-04-05 07:02] LABS: HEMOGLOBIN 9.8 g/dL (14.0-18.0)
[2018-04-05] MEDS: Pantoprazole 40 mg EC Tab PO SCH (07:56)
[2018-04-05] MEDS: Sodium Chloride 0.45% 1,000 ML IV SCH (08:23)
--- NOTE | 2018-04-05 09:51 | PN ---
DATE: 04/05/2018 SUBJECTIVE: I saw Madhav resting comfortably in bed. He is very hungry. He is on clear diet as per GI. He is going to have a colonoscopy and upper endoscopy on Tuesday. He is on IV fluids, potassium replacement, Lasix, Protonix, Toprol; the Lasix and potassium was discontinued. He is on pantoprazole, metoprolol and IV fluids. He is being seen by Cardio and GI. He is comfortable OBJECTIVE: VITAL SIGNS: He has a 99.4 temperature, 65 pulse, 128/71 blood pressure, 20 respiratory rate, 99% O2 sat on room air. HEENT: His head is atraumatic, normocephalic. HEART: Regular rate. LUNGS: Clear to auscultation. ABDOMEN: Soft, nontender. Positive bowel sounds. EXTREMITIES: No edema. DATA: He has a 5.9 white count, his hemoglobin is up to 9.8 after 40 units of blood transfusions, 30.8 hematocrit with 235 platelets. He has 143 sodium, potassium 3.6, BUN 10, creatinine is 1.2. GFR is greater than 60, sugar is 94,0 calcium is 8.8, total bili is 1, AST is 24, ALT is 17, alkaline phosphatase is 140, total protein is 8.5. He has been on Plavix, so we will have to get the Plavix out of the system before they could do an upper and lower endoscopy on him, which is scheduled for Tuesday. I will talk to GI if I could see him. He is tired and he is a little hungry and his hemoglobin is improved. I will talk to GI about diet and prepare for colonoscopy, endoscopy. This is a patient with severe anemia with symptoms. Poncho Caruso DO MTDD
[2018-04-05] MEDS: Metoprolol Succinate 25 mg XL Tab PO SCH (10:15)
--- NOTE | 2018-04-05 11:21 | CP.PCM.CON ---
<Manuel Garcia - Last Filed: 04/05/18 11:17> History of Present Illness - History of Present Illness History of Present Illness: PGY-4 GI Fellow Consult Note 57 yo BM with h/o CAD s/p stenting 10/17/17 (on DAPT), HTN, CKD, CVA presenting with dyspnea on exertion and lightheadedness. Hgb was found to be 4 from a baseline of 9 and hemoccult positive; therefore GI consulted for further management. Pt reports over the last week or so he has had progressively worse shortness of breath with exertion and well as feeling lightheaded when he stands up. As far as bowel movement, he states that his last BM was a day or two ago and was described as dark brown which is not atypical for him. He denies any N/V, Abd pain, melena, hematochezia. He thinks he had some sort of GI bleed in the past, but denies ever have any EGD or CSPY done. He reports compliance with his ASA and clopidogrel, and denied any other NSAID use nor EtOH use. 12 point ROS negative other than stated above MHx CAD w/stenting 10/18/17 CKD CVA "Anemia" SurgHx Cardiac Cath Meds Amlodipine Metoprolol Succinate Clopidogrel Clonidine Atorvastatin ASA FamHx Denied family h/o GI disordered or CA SocHx Quit Tob in Sep 2017, Denies EtOH or Illicites All: Contrast (Anaphylaxis), Shrimp (Rash) Past Patient History - Infectious Disease Hx of Infectious Diseases: None - Past Social History Smoking Status: Former Smoker - CARDIAC Hx Cardiac Disorders: Yes Hx Hypercholesterolemia: Yes Hx Hypertension: Yes - PULMONARY Hx Respiratory Disorders: Yes (SMOKED CIGARETTES 3/D) - NEUROLOGICAL HX Cerebrovascular Accident: Yes - RENAL Hx Chronic Kidney Disease: Yes - HEMATOLOGICAL/ONCOLOGICAL Hx Blood Transfusions: No - MUSCULOSKELETAL/RHEUMATOLOGICAL Hx Musculoskeletal Disorders: Yes Hx Arthritis: Yes Hx Falls: Yes - PSYCHIATRIC Hx Substance Use: No - SURGICAL HISTORY Hx Cardiac Catheterization: Yes Hx Coronary Stent: Yes (x5) - ANESTHESIA Hx Anesthesia Reactions: Yes ("I WAS OVERSEDATED") Hx Malignant Hyperthermia: No Meds Allergies/Adverse Reactions: Allergies Allergy/AdvReac Type Severity Reaction Status Date / Time Iodinated Contrast- Oral and Allergy ANAPHYLAXIS Verified 04/03/18 20:51 IV Dye shrimp Allergy RASH Verified 04/03/18 20:50 - Medications Medications: Current Medications Sodium Chloride (Sodium Chloride 0.45%) 1,000 mls @ 40 mls/hr IV .Q24H [facility] Last Admin: 04/05/18 08:23 Dose: 40 mls/hr Metoprolol Succinate (Toprol Xl) 25 mg PO DAILY [facility] Last Admin: 04/05/18 10:15 Dose: 25 mg Pantoprazole Sodium (Protonix Ec Tab) 40 mg PO 0600 [facility] Last Admin: 04/05/18 07:56 Dose: 40 mg Polyethylene Glycol/Electrolytes (Golytely) 4,000 ml PO ONCE ONE Stop: 04/06/18 16:01 Physical Exam - Constitutional Appears: Well, Non-toxic, No Acute Distress - Head Exam Head Exam: ATRAUMATIC, NORMAL INSPECTION - Eye Exam Eye Exam: EOMI, Normal appearance. absent: Conjunctival injection, Scleral icterus - ENT Exam ENT Exam: Mucous Membranes Moist, Normal External Ear Exam - Respiratory Exam Respiratory Exam: Clear to Auscultation Bilateral, NORMAL BREATHING PATTERN. absent: Accessory Muscle Use, Chest Wall Tenderness, Prolonged Expiratory Phase , Wheezes - Cardiovascular Exam Cardiovascular Exam: REGULAR RHYTHM. absent: Bradycardia, Tachycardia, JVD - GI/Abdominal Exam GI & Abdominal Exam: Normal Bowel Sounds, Soft. absent: Bruit, Diminished Bowel Sounds, Distended, Firm, Guarding, Pulsatile Mass, Rigid, Tenderness - Rectal Exam Rectal Exam: NORMAL INSPECTION (minimal stool in rectal vault) - Neurological Exam Neurological exam: Alert, CN II-XII Intact, Oriented x3 - Skin Skin Exam: Dry, Intact, Normal Color Results - Vital Signs Recent Vital Signs: Last Vital Signs Temp 99.4 F 04/05/18 05:59 Pulse 79 04/05/18 10:15 Resp 18 04/05/18 09:00 BP 140/73 04/05/18 10:15 Pulse Ox 99 04/05/18 09:00 - Labs Result Diagrams: 04/05/18 06:00 04/05/18 06:00 Labs: Laboratory Results - last 24 hr 04/03/18 04/05/18 04/05/18 22:52 06:00 06:00 WBC 5.9 RBC 4.09 Hgb 9.8 L D Hct 30.8 L MCV 75.3 L MCH 24.0 L MCHC 31.8 RDW 22.4 H Plt Count 235 Sodium 143 Potassium 3.6 Chloride 107 Carbon Dioxide 21 Anion Gap 18 BUN 10 Creatinine 1.2 Est GFR ( Amer) > 60 Est GFR (Non-Af Amer) > 60 Random Glucose 94 Calcium 8.8 Total Bilirubin 1.0 AST 24 ALT 17 Alkaline Phosphatase 140 H D Total Protein 8.5 H Albumin 3.8 Globulin 4.7 Albumin/Globulin Ratio 0.8 L Blood Type A POSITIVE Antibody Screen Negative Crossmatch See Detail BBK History Checked Patient has bt Assessment & Plan - Assessment and Plan (Free Text) Assessment: Acute Microcytic Anemia: Hemoccult positive. No overt signs of GI Bleeding at this time. Vitals stable. No previous endoscopies. DDx includes but not limited to PUD, AVMs, Malignancy. No h/o portal HTN. Pt with risk factors of dual-antiplatelet therapy for CAD with most recent stenting September 2017. While would like to hold DAPT from possible GI bleed perspective, suspect that risks will outweigh benefits of holding given stenting < 1 year ago, but defer to Cardiology. Plan: Plan Monitor Hgb post-transfusion Cont PO Pantoprazole Daily Plan for EGD + CSPY on Tuesday Prep for CSPY night Clear Liquid Diet starting Cardiology consult given recent stenting and concern for GI Bleed If signs of overt GI bleeding, page GI fellow bonderizer operator Pt seen and staffed with Dr. Chacko <Bruce Chacko - Last Filed: 04/05/18 14:35> Meds - Medications Medications: Current Medications Sodium Chloride (Sodium Chloride 0.45%) 1,000 mls @ 40 mls/hr IV .Q24H [facility] Last Admin: 04/05/18 08:23 Dose: 40 mls/hr Metoprolol Succinate (Toprol Xl) 25 mg PO DAILY [facility] Last Admin: 04/05/18 10:15 Dose: 25 mg Pantoprazole Sodium (Protonix Ec Tab) 40 mg PO 0600 [facility] Last Admin: 04/05/18 07:56 Dose: 40 mg Polyethylene Glycol/Electrolytes (Golytely) 4,000 ml PO ONCE ONE Stop: 04/06/18 16:01 Results - Vital Signs Recent Vital Signs: Last Vital Signs Temp 99.9 F H 04/05/18 12:00 Pulse 72 04/05/18 14:00 Resp 18 04/05/18 12:00 BP 135/87 04/05/18 12:00 Pulse Ox 99 04/05/18 09:00 - Labs Result Diagrams: 04/05/18 06:00 04/05/18 06:00 Labs: Laboratory Results - last 24 hr 04/03/18 04/05/18 04/05/18 22:52 06:00 06:00 WBC 5.9 RBC 4.09 Hgb 9.8 L D Hct 30.8 L MCV 75.3 L MCH 24.0 L MCHC 31.8 RDW 22.4 H Plt Count 235 Sodium 143 Potassium 3.6 Chloride 107 Carbon Dioxide 21 Anion Gap 18 BUN 10 Creatinine 1.2 Est GFR ( Amer) > 60 Est GFR (Non-Af Amer) > 60 Random Glucose 94 Calcium 8.8 Total Bilirubin 1.0 AST 24 ALT 17 Alkaline Phosphatase 140 H D Total Protein 8.5 H Albumin 3.8 Globulin 4.7 Albumin/Globulin Ratio 0.8 L Blood Type A POSITIVE Antibody Screen Negative Crossmatch See Detail BBK History Checked Patient has bt Attending/Attestation - Attestation I have personally seen and examined this patient.: Yes I have fully participated in the care of the patient.: Yes I have reviewed all pertinent clinical information: Yes Notes (Text): 04/05/18 14:31 Patient was seen and examined with GI fellow on rounds this am. In a nutshell this is a 57 yr old M with recent cardiac stent in on double anti platelet therapy with occult positive and no overt signs of GI Bleeding at this time. Vitals stable. No previous endoscopies. While would like to hold DAPT from possible GI bleed perspective, suspect that risks will outweigh benefits of holding given stenting < 1 year ago, but defer to Cardiology. Monitor closely H/Hct and schedule EGD/ colonoscopy on Tuesday am with Dr Elmore. PPI daily. Clear liquid diet
--- NOTE | 2018-04-05 13:45 | PN ---
DATE: 04/05/2018 CARDIOLOGY FOLLOWUP SUBJECTIVE: The patient is comfortable. PHYSICAL EXAMINATION: VITAL SIGNS: Blood pressure is 135/87, heart rates in the 80s. NECK: Negative JVD. LUNGS: Without rales. HEART: Reveals S1, S2. EXTREMITIES: Without edema. LABORATORY DATA: Hemoglobin remains at 9.8 compared to 4.6 on admission. Chemistries: BUN and creatinine are unremarkable. IMPRESSION: 1. Status post gastrointestinal bleed. 2. Marked anemia, which is better after transfusion. 3. Stable angina. 4. History of multivessel percutaneous transluminal coronary angioplasty and stent with drug-eluting stents. 5. Hypertension. 6. Hypercholesterolemia. PLAN: Given these findings, we have held the aspirin and Plavix. Awaiting for endoscopy and GI workup. Deni Shay MD
[2018-04-06] MEDS: Pantoprazole 40 mg EC Tab PO SCH (05:50)
[2018-04-06 06:19] LABS: HEMOGLOBIN 9.8 g/dL (14.0-18.0); MEAN CELL VOLUME 76.2 fl (80.0-105.0); MEAN CORPUSCULAR HEMOGLOBIN 23.8 pg (25.0-35.0); MEAN CORPUSCULAR HGB CONC 31.2 g/dl (31.0-37.0); MEAN PLATELET VOLUME 11.1 fl (7.0-11.0); RBC 4.12 10^6/uL (3.5-6.1); RED CELL DISTRIBUTION WIDTH 22.8 % (11.5-14.5); WHITE BLOOD COUNT 5.2 10^3/ul (4.5-11.0)
[2018-04-06 06:59] LABS: ALB/GLOB RATIO 0.8 (1.1-1.8); ALBUMIN 3.7 g/dL (3.0-4.8); ALT/SGPT 29 U/L (7-56); AST/SGOT 47 U/L (17-59); BLOOD UREA NITROGEN 13 mg/dL (7-21); CALCIUM 8.6 mg/dL (8.4-10.5); GFR AFRICAN-AMERICAN > 60; GFR NON-AFRICAN AMERICAN > 60
[2018-04-06] MEDS: Sodium Chloride 0.45% 1,000 ML IV SCH (08:00)
[2018-04-06] MEDS: Metoprolol Succinate 25 mg XL Tab PO SCH (10:07)
[2018-04-06] MEDS ORDERED: Potassium Chloride 20 mEq/15 ml LIQ UD PO STA (10:34)
--- NOTE | 2018-04-06 11:33 | PN ---
DATE: 04/06/2018 CARDIOLOGY FOLLOWUP SUBJECTIVE: The patient had an episode of wide complex tachycardia, which is nonsustained. PHYSICAL EXAMINATION VITAL SIGNS: Blood pressure is 124/90, heart rate is in the 90s. NECK: Negative JVD. LUNGS: Without rales. HEART: Reveal S1 and S2. EXTREMITIES: Without edema. LABORATORY DATA: Potassium is 3.5. Hemoglobin is 9.8, which is stable. IMPRESSION: 1. Status post marked anemia. 2. Rule out gastrointestinal bleed. 3. Wide complex tachycardia. 4. Hypokalemia. 5. Hypertension. 6. Hypercholesterolemia. PLAN: Given these findings, the patient is for GI workup in the morning. We will replace his potassium. We will continue on telemetry for the next 24 hours. Deni Shay MD
[2018-04-06] MEDS ORDERED: Bisacodyl 5mg EC Tab PO ONE (12:00)
--- NOTE | 2018-04-06 13:25 | PN ---
DATE: 04/06/2018 SUBJECTIVE: I saw him resting comfortably in bed. He slept well. He is in good spirits. He is on the GoLYTELY to get cleaned out. Also, a Dulcolax pill. He is going to go for upper and lower endoscopy tomorrow. He came in with a very low hemoglobin of 4. He has been transfused. He is up to a 9.8. His on liquid diet right now and n.p.o. after midnight tonight. He understands. He is comfortable. He is in good spirits. No shortness of breath. No chest pain. No abdominal pain. No more blood. PHYSICAL EXAMINATION: VITAL SIGNS: He has 98.8 temperature, 73 pulse, 128/79 blood pressure, 20 respiratory rate, 97% O2 sat on room air. HEENT: His head is atraumatic, normocephalic. HEART: Regular rate. LUNGS: Clear to auscultation. ABDOMEN: Soft, nontender. Positive bowel sounds. No guarding. No rebound. No CVA tenderness. EXTREMITIES: No edema. MEDICATIONS: He is on Dulcolax, GoLYTELY, Protonix, IV fluids and Toprol. LABORATORY DATA: He has a white count of 5.2, hemoglobin is stable at 9.8, hematocrit is 31.4, platelets of 236. INR is 1.23. He has 142 sodium, potassium 3.5, I gave him a K rider. BUN 13, creatinine 1.2, GFR is greater than 60, sugar is 106, calcium is 8.6, magnesium is 2. Total bilirubin is 0.5, AST is 47, ALT is 29, alkaline phosphatase is 129, total protein is 8.5. Urine is clean. ASSESSMENT AND PLAN: He is being seen by Cardiology and GI. He is comfortable at this time. He is getting cleaned out. He is going to have an upper and lower endoscopy tomorrow with GI. Hopefully, may be later on tomorrow he can go home. This is a patient who had a gastrointestinal bleed and severe anemia. Poncho Caruso DO [email or web address]
[2018-04-06] MEDS ORDERED: Peg-Electrolyte Oral Soln 4L (Golytely) PO ONE (16:00)
[2018-04-07] MEDS: Pantoprazole 40 mg EC Tab PO SCH (05:30)
[2018-04-07 06:48] LABS: ALB/GLOB RATIO 0.8 (1.1-1.8); ALBUMIN 3.6 g/dL (3.0-4.8); ALT/SGPT 26 U/L (7-56); AST/SGOT 42 U/L (17-59); BLOOD UREA NITROGEN 9 mg/dL (7-21); CALCIUM 8.4 mg/dL (8.4-10.5); GFR AFRICAN-AMERICAN > 60; GFR NON-AFRICAN AMERICAN > 60
[2018-04-07 06:58] LABS: HEMOGLOBIN 9.9 g/dL (14.0-18.0); MEAN CORPUSCULAR HEMOGLOBIN 24.4 pg (25.0-35.0); MEAN CORPUSCULAR HGB CONC 31.7 g/dl (31.0-37.0); PLATELET COUNT 231 10^3/uL (120.0-450.0); RBC 4.05 10^6/uL (3.5-6.1); RED CELL DISTRIBUTION WIDTH 23.7 % (11.5-14.5); WHITE BLOOD COUNT 5.3 10^3/ul (4.5-11.0)
[2018-04-07] MEDS ORDERED: Propofol 10 mg/ml Inj (20 ML) ONE ×2 (09:17→09:49)
[2018-04-07] MEDS ORDERED: Potassium Chloride 20 mEq/15 ml LIQ UD PO STA (09:34)
[2018-04-07] MEDS: Metoprolol Succinate 25 mg XL Tab PO SCH (10:46)
[2018-04-07 11:10] LABS: BASO # 0.02 K/mm3 (0.0-2.0); BASO % 0.2 % (0.0-3.0); EOS # 0.2 (0.0-0.7); EOS % 1.5 % (1.5-5.0); GRAN % 60.9 % (50.0-68.0); LYMPH % 30.6 % (22.0-35.0); MEAN CELL VOLUME 79.3 fl (80.0-105.0); MEAN CORPUSCULAR HEMOGLOBIN 23.6 pg (25.0-35.0); MEAN CORPUSCULAR HGB CONC 29.8 g/dl (31.0-37.0); MEAN PLATELET VOLUME 10.5 fl (7.0-11.0); MONO # 0.7 (0.1-0.6); MONO % 6.8 % (1.0-6.0); PLATELET COUNT 236 10^3/uL (120.0-450.0); RBC 3.81 10^6/uL (3.5-6.1); RED CELL DISTRIBUTION WIDTH 24.1 % (11.5-14.5); WHITE BLOOD COUNT 9.9 10^3/ul (4.5-11.0)
--- NOTE | 2018-04-07 11:14 | CP.PCM.CON ---
<Mariel,Mark - Last Filed: 04/07/18 10:59> History of Present Illness - History of Present Illness History of Present Illness: Dat Floyd PGY2 ICU Consult Note for Dr. Holt Mr. Cabrera is a 57yo AA male with a PMH of CAD s/p stenting 10/17/17 (on DAPT), HTN, CKD, CVA who presented with dyspnea on exertion and lightheadedness. Hgb was found to be 4 from a baseline of 9 and hemoccult positive; and patient was undergoing endoscopy with GI when RASHA[facility] EID was called. Upon arrival to endoscopy suite, ACLS was taking place and patient was receiving compressions while being intubated by anesthesiologist. Per medical staff there, ICU team was notified that patient had received fentanyl and propofol for procedure induction, and that patient was noted to be in bradycardia in 30's, was given atropine x1, then noted to be in asystole and then PEA (for about 1 minute) during which 1 round of ACLS with 1 dose of epinephrine given. ROSC was obtained , and patient was transported to ICU. Cardiology saw and evaluated the patient and recommended for STAT EKG. EKG, Echo, CXR, CBC, CMP, Troponin, Mg/Phos, and ABG were ordered STAT. Patient was noted to be awake and moving while following simple commands. He was placed on Pressure Support and his SBI was adequate for extubation. Patient was extubated, and is oxygenating well on RA. ROS was limited due to acuity of condition. Review of Systems - Review of Systems Systems not reviewed;Unavailable: Acuity of Condition Past Patient History - Infectious Disease Hx of Infectious Diseases: None - Past Social History Smoking Status: Current Some Days Smoker Alcohol: None - CARDIAC Hx Cardiac Disorders: Yes Hx Hypercholesterolemia: Yes Hx Hypertension: Yes - PULMONARY Hx Respiratory Disorders: Yes (SMOKED CIGARETTES 3/D) - NEUROLOGICAL HX Cerebrovascular Accident: Yes - RENAL Hx Chronic Kidney Disease: Yes - ENDOCRINE/METABOLIC Hx Endocrine Disorders: No - HEMATOLOGICAL/ONCOLOGICAL Hx Blood Transfusions: No - MUSCULOSKELETAL/RHEUMATOLOGICAL Hx Musculoskeletal Disorders: Yes Hx Arthritis: Yes Hx Falls: Yes - PSYCHIATRIC Hx Substance Use: No - SURGICAL HISTORY Hx Surgeries: Yes (CARDIAC STENTS X 3.) - ANESTHESIA Hx Anesthesia Reactions: Yes ("I WAS OVERSEDATED") Hx Malignant Hyperthermia: No Meds Allergies/Adverse Reactions: Allergies Allergy/AdvReac Type Severity Reaction Status Date / Time Iodinated Contrast- Oral and Allergy ANAPHYLAXIS Verified 04/03/18 20:51 IV Dye shrimp Allergy RASH Verified 04/03/18 20:50 - Medications Medications: Current Medications Sodium Chloride (Sodium Chloride 0.45%) 1,000 mls @ 40 mls/hr IV .Q24H [facility] Last Admin: 04/06/18 08:00 Dose: 40 mls/hr Metoprolol Succinate (Toprol Xl) 25 mg PO DAILY [facility] Last Admin: 04/06/18 10:07 Dose: 25 mg Pantoprazole Sodium (Protonix Ec Tab) 40 mg PO 0600 [facility] Last Admin: 04/07/18 05:30 Dose: Not Given Physical Exam - Constitutional Appears: No Acute Distress - Head Exam Head Exam: NORMAL INSPECTION - Eye Exam Pupil Exam: Miosis - ENT Exam ENT Exam: Normal Exam Additional comments: s/p extubation - Respiratory Exam Respiratory Exam: absent: Rhonchi, Wheezes, Respiratory Distress Additional comments: on RA s/p extubation - Cardiovascular Exam Cardiovascular Exam: RRR, +S1, +S2 - GI/Abdominal Exam GI & Abdominal Exam: Normal Bowel Sounds, Soft. absent: Distended - Extremities Exam Extremities exam: Positive for: normal inspection - Back Exam Back exam: NORMAL INSPECTION - Neurological Exam Neurological exam: Alert - Psychiatric Exam Psychiatric exam: Normal Mood - Skin Skin Exam: Normal Color Results - Vital Signs Recent Vital Signs: Last Vital Signs Temp 97.8 F 04/07/18 08:07 Pulse 84 04/07/18 08:07 Resp 14 04/07/18 08:07 BP 146/86 04/07/18 08:07 Pulse Ox 100 04/07/18 08:07 - Labs Result Diagrams: 04/07/18 05:40 04/07/18 05:40 Labs: Laboratory Results - last 24 hr 04/06/18 04/07/18 04/07/18 21:45 05:40 05:40 WBC 5.3 RBC 4.05 Hgb 9.9 L Hct 31.2 L MCV 77.0 L MCH 24.4 L MCHC 31.7 RDW 23.7 H Plt Count 231 Sodium 140 Potassium 3.3 L Chloride 107 Carbon Dioxide 24 Anion Gap 13 BUN 9 Creatinine 1.1 Est GFR ( Amer) > 60 Est GFR (Non-Af Amer) > 60 POC Glucose (mg/dL) 70 Random Glucose 95 Calcium 8.4 Magnesium Total Bilirubin 0.6 AST 42 ALT 26 Alkaline Phosphatase 128 H Total Protein 8.3 Albumin 3.6 Globulin 4.7 Albumin/Globulin Ratio 0.8 L 04/07/18 09:00 WBC RBC Hgb Hct MCV MCH MCHC RDW Plt Count Sodium Potassium Chloride Carbon Dioxide Anion Gap BUN Creatinine Est GFR ( Amer) Est GFR (Non-Af Amer) POC Glucose (mg/dL) Random Glucose Calcium Magnesium 1.9 Total Bilirubin AST ALT Alkaline Phosphatase Total Protein Albumin Globulin Albumin/Globulin Ratio Assessment & Plan - Assessment and Plan (Free Text) Assessment: 57yo AA male with a PMH of CAD s/p stenting 10/17/17 (on DAPT), HTN, CKD, and CVA who presented for GI bleed and anemia s/p 6u pRBC transfused. Patient was undergoing endoscopy when he underwent PEA and asystole arrest, CODE BLUE was called and ROSC was obtained (please refer to nurse, anesthesia and code notes for more information). Patient in ICU s/p extubation and for ICU monitoring. Plan: s/p Asystole Arrest - s/p extubation - SaO2 > 92% on RA - CXR ordered - EKG was ordered and showed no ST changes - Echo ordered - troponin not elevated - CBC/CMP showed no acute abnormalities - Cardiology was notified - will notify PMD - cont NS - will f/u Cardio, Pulm recs - continue ICU monitoring - monitor VS - monitor CBC/CMP - f/u GI recs about endoscopy results and GI bleed Case was reviewed and discussed with attending, Dr. Holt <Vikram Holt - Last Filed: 04/07/18 11:57> Meds - Medications Medications: Current Medications Sodium Chloride (Sodium Chloride 0.45%) 1,000 mls @ 40 mls/hr IV .Q24H [facility] Last Admin: 04/06/18 08:00 Dose: 40 mls/hr Metoprolol Succinate (Toprol Xl) 25 mg PO DAILY [facility] Last Admin: 04/06/18 10:07 Dose: 25 mg Pantoprazole Sodium (Protonix Ec Tab) 40 mg PO 0600 [facility] Last Admin: 04/07/18 05:30 Dose: Not Given Results - Vital Signs Recent Vital Signs: Last Vital Signs Temp 97.8 F 04/07/18 08:07 Pulse 115 H 04/07/18 11:09 Resp 21 04/07/18 11:07 BP 146/86 04/07/18 08:07 Pulse Ox 100 04/07/18 11:07 - Labs Result Diagrams: 04/07/18 11:00 04/07/18 11:00 Labs: Laboratory Results - last 24 hr 04/06/18 04/07/18 04/07/18 21:45 05:40 05:40 WBC 5.3 RBC 4.05 Hgb 9.9 L Hct 31.2 L MCV 77.0 L MCH 24.4 L MCHC 31.7 RDW 23.7 H Plt Count 231 MPV Gran % Lymph % (Auto) Kimble % (Auto) Eos % (Auto) Baso % (Auto) Gran # Lymph # (Auto) Kimble # (Auto) Eos # (Auto) Baso # (Auto) Corrected WBC (Man) Neutrophils % (Manual) Band Neutrophils % Lymphocytes % (Manual) Monocytes % (Manual) Basophils % (Manual) Nucleated RBC % Platelet Evaluation Polychromasia Hypochromasia Anisocytosis (manual) Sodium 140 Potassium 3.3 L Chloride 107 Carbon Dioxide 24 Anion Gap 13 BUN 9 Creatinine 1.1 Est GFR ( Amer) > 60 Est GFR (Non-Af Amer) > 60 POC Glucose (mg/dL) 70 Random Glucose 95 Calcium 8.4 Phosphorus Magnesium Total Bilirubin 0.6 AST 42 ALT 26 Alkaline Phosphatase 128 H Troponin I Total Protein 8.3 Albumin 3.6 Globulin 4.7 Albumin/Globulin Ratio 0.8 L 04/07/18 04/07/18 04/07/18 09:00 11:00 11:00 WBC 9.9 D RBC 3.81 Hgb 9.0 L Hct 30.2 L MCV 79.3 L MCH 23.6 L MCHC 29.8 L RDW 24.1 H Plt Count 236 MPV 10.5 Gran % 60.9 Lymph % (Auto) 30.6 Kimble % (Auto) 6.8 H Eos % (Auto) 1.5 Baso % (Auto) 0.2 Gran # 6.00 Lymph # (Auto) 3.0 Kimble # (Auto) 0.7 H Eos # (Auto) 0.2 Baso # (Auto) 0.02 Corrected WBC (Man) 9.4 Neutrophils % (Manual) 63 Band Neutrophils % 2 Lymphocytes % (Manual) 27 Monocytes % (Manual) 7 H Basophils % (Manual) 1 Nucleated RBC % 5 Platelet Evaluation Normal Polychromasia Slight Hypochromasia 1+ Anisocytosis (manual) 1+ Sodium 142 Potassium 3.6 Chloride 108 H Carbon Dioxide 22 Anion Gap 16 BUN 8 Creatinine 1.3 Est GFR ( Amer) > 60 Est GFR (Non-Af Amer) 57 POC Glucose (mg/dL) Random Glucose 187 H Calcium 7.8 L Phosphorus 5.2 H Magnesium 1.9 2.0 Total Bilirubin 0.4 AST 49 ALT 34 Alkaline Phosphatase 119 Troponin I 0.02 D Total Protein 7.7 Albumin 3.4 Globulin 4.3 Albumin/Globulin Ratio 0.8 L Assessment & Plan - Assessment and Plan (Free Text) Plan: Patient seen and examined with resident, on rounds, agree with note with following additions/exceptions: Patient is 57yo male with PMHx of CAD a/w anemia, s/p prbc transfusion, during EGD today, towards the end after being induced with Fentanyl and Propofol, patient had SB and had 1min PEA cardiac arrest, as per Endo/Anesthesia staff. Patient was intubated and then subseuqently placed on CPAP in the MICU, and extubated to 2LNC. Currently afebrile, BP stable, comfortable in NAD, doing well. Cardiology on the case. Obtain Labs, CBC, CMP, troponin, ECHO IVF hydration Resume diet if OK by GI PPI DVT ppx, SCDs Monitor in MICU
[2018-04-07 11:29] LABS: ALB/GLOB RATIO 0.8 (1.1-1.8); ALBUMIN 3.4 g/dL (3.0-4.8); ALT/SGPT 34 U/L (7-56); AST/SGOT 49 U/L (17-59); BLOOD UREA NITROGEN 8 mg/dL (7-21); CALCIUM 7.8 mg/dL (8.4-10.5); GFR AFRICAN-AMERICAN > 60; GFR NON-AFRICAN AMERICAN 57
[2018-04-07 11:35] LABS: TROPONIN I 0.02 ng/mL
[2018-04-07 11:40] LABS: BAND 2 % (0-2); BASOPHIL 1 % (0.0-1.0); CORRECTED WBC 9.4 K/mm3 (4.5-11.0); LYMPHOCYTE 27 % (22.0-35.0); MONOCYTE 7 % (1.0-6.0); NEUTROPHIL 63 % (50.0-70.0); NUCLEATED RED BLOOD CELL 5 %
[2018-04-07 11:41] LABS: ANISOCYTOSIS 1+; HYPOCHROMIA 1+; PLATELET ESTIMATE NORMAL (NORMAL); POLYCHROMASIA SLIGHT
[2018-04-07] MEDS: Sodium Chloride 0.45% 1,000 ML IV SCH (12:08)
[2018-04-07] MEDS ORDERED: Morphine 2 mg/ml ISec IVP PRN (12:33)
--- NOTE | 2018-04-07 13:07 | RAD ---
Date of service: 04/07/2018 HISTORY: s/p code blue COMPARISON: 04/04/2018 FINDINGS: LUNGS: No active pulmonary disease. PLEURA: No significant pleural effusion identified, no pneumothorax apparent. CARDIOVASCULAR: Mild cardiomegaly OSSEOUS STRUCTURES: No significant abnormalities. VISUALIZED UPPER ABDOMEN: Normal. OTHER FINDINGS: None. IMPRESSION: No active disease.
--- NOTE | 2018-04-07 13:34 | CP.PCM.PN ---
Subjective - Date & Time of Evaluation Date of Evaluation: 04/07/18 Time of Evaluation: 13:30 - Subjective Subjective: Patient seen and examined. s/p EGD and colonoscopy today which showed gastritis , small rectal polyp, internal hemorrhoids. Following completion of endoscopic procedure, patient noted to have bradycardia arrest s/p 1 cycle successful CPR and intubation. Objective - Vital Signs/Intake and Output Vital Signs (last 24 hours): Temp Pulse Resp BP Pulse Ox 97.8 F 115 H 21 146/86 100 04/07/18 08:07 04/07/18 11:09 04/07/18 11:07 04/07/18 08:07 04/07/18 11:07 Intake and Output: 04/07/18 04/07/18 06:59 18:59 Intake Total 720 10 Balance 720 10 - Medications Medications: Current Medications Clopidogrel Bisulfate (Plavix) 75 mg PO DAILY [facility] Sodium Chloride (Sodium Chloride 0.45%) 1,000 mls @ 40 mls/hr IV .Q24H [facility] Last Admin: 04/07/18 12:08 Dose: 40 mls/hr Metoprolol Succinate (Toprol Xl) 25 mg PO DAILY [facility] Last Admin: 04/06/18 10:07 Dose: 25 mg Morphine Sulfate (Morphine) 2 mg IVP Q4H PRN PRN Reason: Pain, severe (8-10) Pantoprazole Sodium (Protonix Ec Tab) 40 mg PO 0600 [facility] Last Admin: 04/07/18 05:30 Dose: Not Given - Labs Labs: 04/07/18 11:00 04/07/18 11:00 PT 14.1 SECONDS (9.4-12.5) H 04/03/18 21:33 INR 1.23 (0.93-1.08) H 04/03/18 21:33 APTT 31.4 Seconds (25.1-36.5) 04/03/18 21:33 Assessment and Plan - Assessment and Plan (Free Text) Assessment: CAD s/p stent in September 2017 on plavix (held for endoscopic procedure) Anemia s/p EGD and colonoscopy showing mild gastritis, diminutive rectal polyp, internal hemorrhoids Bradycardia arrest following procedure, successfully resuscitated and now extubated in ICU Plan: - Liquid diet, advance slowly as tolerated - Continue to monitor H/H, no evidence of GI bleeding noted on EGD/colonoscopy today - Case discussed with cardiology, patient should resume plavix immediately - No further planned GI intervention, will sign off case. Patient would benefit from additional outpatient follow up. Please reconsult as necessary, thank you.
--- NOTE | 2018-04-07 13:36 | PN ---
DATE: 04/07/2018 CARDIOLOGY FOLLOWUP SUBJECTIVE: The patient is in colonoscopy, no recurrent wide complex tachycardia. VITAL SIGNS: Blood pressure 146/86 with heart rate in the 80s. LABORATORY DATA: The potassium is 3.3. The hemoglobin is stable. IMPRESSION: 1. Gastrointestinal bleed. 2. Stable angina. 3. Coronary artery disease. 4. Hypokalemia. 5. History of wide complex tachycardia. PLAN: Given these findings, we will need to aggressively replace his potassium and metabolic abnormalities. Deni Shay MD
[2018-04-07] MEDS ORDERED: Potassium Chloride 20 mEq ER Tab PO STA (14:44)
--- NOTE | 2018-04-07 15:11 | PCM.RRT ---
SILVER RECOVERY OPERATOR Nurse Assessment - Situation Date: 04/07/18 Time SILVER RECOVERY OPERATOR was called: 10:15 SILVER RECOVERY OPERATOR Responder Arrival Time: 10:15 SILVER RECOVERY OPERATOR Location:: Endoscopy Room Number: 1 SILVER RECOVERY OPERATOR Reason for Call: Hypotension, Not Responding to Urgent Treatment SILVER RECOVERY OPERATOR Called By: Physician - IV IV Inserted during SILVER RECOVERY OPERATOR?: No IV Fluids Initiated During SILVER RECOVERY OPERATOR?: Yes, 1L NS wide open - Respiratory Oxygen Delivery Method: Nasal Cannula @L/min, Intubated - Diagnostic Test Ordered EKG: Yes Chest X-Ray: Yes - Stat Labs Ordered SILVER RECOVERY OPERATOR Stat Labs Ordered: CBC, BMP, PT/PTT, TROPONIN CPR started during SILVER RECOVERY OPERATOR?: Yes - Time SILVER RECOVERY OPERATOR Ended Time SILVER RECOVERY OPERATOR Ended: 10:22 - Recommendations 5) SILVER RECOVERY OPERATOR Level of Care Recommendations: Transfer to ICU Notifications: Attending Physician, Family or Designated Caregiver I.Reason for SILVER RECOVERY OPERATOR - A) Acute Change in Patient: (Select all that apply): Acute change in heart rate less than 50 or greater than 120 Subjective: Responding Resident Emiliano Muñoz, PGY-3 IM Patient undergoing EGD for suspected upper GI bleed after presenting to [facility] with Hgb 4.6. Hgb stable after transfused 4 units pRBCs 3 days prior, 9.8-9.9 for last 3 days post-transfusion. Abruptly became bradycardic to 30's with pulse after removal of EGD scope, desatted to 85%, then pulse lost and patient became asystolic for approx 30 seconds, before regaining heart beat to 30's, but no distal pulses (PEA). CODE BLUE called at 1015, responded immediately. Bi Analyst also present at bedside. CPR initiated, ambu-bagged by Anesthesiologist during code. Anesthesia reported patient only received propofol and fentanyl for sedation during procedure, 1x each. 1 round of CPR ( 2 minutes) provided, patient also received IV epinephrine and atropine, x1 each. After finishing initial CPR cycle of 2 minutes, pulse check revealed palpable femoral and carotid pulses, patient tachycardic to 150's on bedside monitor, and began to breath spontaneously on his own; however he was intubated for airway protection as he was not waking up and appeared to be choking on secretions despite suctioning. Intubated, ambubag in place, transferred to ICU for ventilation and close monitoring until patient became more awake/alert and able to adequately protect airway. EGK obtained once transferred to ICU, no acute ST-T wave elevations or depressions appreciated, only notable for sinus tachycardia, suspicious for LVH based on tall R waves of V4-6. Patient placed on ventilator, PRVC, in ICU, restrained with soft-wrist restraints to prevent accidental extubation as regaining consciousness, and stat labs (CBC, CMP, Trop ) ordered. Insurance Consultant on consult for the patient (Dr. Shay) present at bedside in ICU, aware of code and condition. Code/Rapid response terminated, in ICU pending regaining consciousness sufficient to safely extubate, and for close monitoring post-cardiac arrest. Case reviewed and discussed with Bi Analyst present for Code, Dr. Holt. GI attending (Dr. Elmore) to notify patient's PMD (Dr. Caruso) of patient's CODE. Physical Exam during Code is as follows General: initially unresponsive, now some gross spontaneous movements but not awake/alert, not following commands Head: NCAT Eyes: no spontaneous movements/not following commands so EOMI unassessable, pupils pinpoint and non-reactive to light bilaterally, no scleral icterus, no conjunctival injection ENT: Intubated, excess secretions being suctioned, no tongue bitting appreciated during code Pulm: initially not breathing spontaneously, on ambubag; later resumed spontaneous breathing but with excess secretions, intubated for airway protection Cardio: initially asystole, then PEA with HR 30's on monitor; now HR 150's, palpable carotid and femoral pulses, sinus tachycardia on auscultation, no gross murmurs appreciated Abd: soft, normal bowel sounds post-code Ext: palpable distal pulses post-code, +2 radials and dorsalis pedis Neuro: unresponsive initially and no spontaneous movements; post-code some spontaneous movements but not following commands and intent behind movements - Neurological Status (Select all that apply): absent: Follows Commands Other (Please specify): unresponsive, now some spontaneous movements and retraction from pain - Respiratory Oxygen Delivery Method: Intubated - Constitutional Additional Comments: see physical exam in Reason section of SILVER RECOVERY OPERATOR Plan - Assessment of Findings&Treatment Plan Intubated, resuscitated, transferred to ICU for close monitoring and eventual extubation when safe EKG obtained, no overt STEMI appreciated Labs sent as per ICU Signed out to drywall sander and ICU residents
--- NOTE | 2018-04-07 16:04 | PN ---
DATE: 04/07/2018 CARDIOLOGY FOLLOWUP SUBJECTIVE: The patient with bradycardia and a cardiorespiratory arrest after his colonoscopy. Currently, the patient is in the ICU, intubated. The patient is unresponsive to painful stimuli. PHYSICAL EXAMINATION VITAL SIGNS: Blood pressure is 146/86; heart rate is 120, tachycardia. NECK: Negative JVD. LUNGS: Without rales. HEART: Reveals S1 and S2. EXTREMITIES: Without edema. LABORATORY DATA: Hemoglobin in the morning was 9.9. Troponins are pending post code. EKG is not done. IMPRESSION AND PLAN: 1. Status post bradycardia and cardiopulmonary arrest post colonoscopy. 2. Respiratory failure. 3. The patient remains unresponsive which may be related to his sedation. 4. Need to do a stat EKG to rule out an ischemic cause of his hemodynamic collapse. Deni Shay MD
--- NOTE | 2018-04-07 16:52 | CARD ---
APPROVED REPORT Date of service: 04/07/2018 EXAM: Two-dimensional and M-mode echocardiogram with Doppler and color Doppler. INDICATION code blue 2D DIMENSIONS Left Atrium (2D)4.2 (1.6-4.0cm)IVSd1.5 (0.7-1.1cm) LVDd4.3 (3.9-5.9cm)PWd1.3 (0.7-1.1cm) LVDs3.0 (2.5-4.0cm)FS (%) 29.5 % LVEF (%)56.6 (>50%) M-Mode DIMENSIONS Aortic Root2.70 (2.2-3.7cm)Aortic Cusp Exc.1.80 (1.5-2.0cm) Aortic Valve AoV Peak Argpiavx099.0cm/Al Peak GR.12mmHg Mitral Valve MV E Ujolksor59.5cm/sMV A Ttnznbhz27.8cm/sE/A ratio0.9 TDI E/Lateral E'0.0E/Medial E'0.0 Tricuspid Valve TR Peak [id number]/sRAP [id number] Peak Gr.27mmHg [id number] LEFT VENTRICLE The left ventricle is normal size. There is mild concentric left ventricular hypertrophy. The left ventricular function is normal. The left ventricular ejection fraction is within the normal range. There is normal LV segmental wall motion. Transmitral Doppler flow pattern is Grade I-abnormal relaxation pattern. RIGHT VENTRICLE The right ventricle is normal size. There is normal right ventricular wall thickness. The right ventricular systolic function is normal. ATRIA The left atrium is borderline dilated. The right atrium size is normal. AORTIC VALVE The aortic valve is mildly thickened. There is trace aortic regurgitation. There is no aortic valvular stenosis. MITRAL VALVE The mitral valve is moderately thickened. Mitral regurgitation is trace. There is no mitral valve stenosis. TRICUSPID VALVE The tricuspid valve is normal in structure. There is mild tricuspid regurgitation. There is mild pulmonary hypertension. PULMONIC VALVE The pulmonary valve is normal in structure. There is mild pulmonic valvular regurgitation. GREAT VESSELS The aortic root is normal in size. PERICARDIAL EFFUSION There is no pericardial effusion. <Conclusion> The left ventricle is normal size. There is mild concentric left ventricular hypertrophy. The left ventricular function is normal. The left ventricular ejection fraction is within the normal range. There is normal LV segmental wall motion. Transmitral Doppler flow pattern is Grade I-abnormal relaxation pattern. There is trace aortic regurgitation. Mitral regurgitation is trace. There is mild tricuspid regurgitation. There is mild pulmonary hypertension.
--- NOTE | 2018-04-07 17:32 | CARD ---
APPROVED REPORT Date of service: 04/07/2018 EKG Measurement Heart [id number] HI [id number] [id number] <Conclusion> Sinus tachycardia Possible Left atrial enlargement Left ventricular hypertrophy ST abnormality, possible digitalis effect Abnormal ECG
[2018-04-07 18:24] VITALS: TEMP 98.2
[2018-04-07] MEDS ORDERED: Benzocaine/Menthol (Cepacol) Lozenge MT PRN (19:42)
[2018-04-08] MEDS: Pantoprazole 40 mg EC Tab PO SCH (05:45)
[2018-04-08 06:07] LABS: ALB/GLOB RATIO 0.8 (1.1-1.8); ALBUMIN 3.3 g/dL (3.0-4.8); ALT/SGPT 34 U/L (7-56); AST/SGOT 49 U/L (17-59); BLOOD UREA NITROGEN 7 mg/dL (7-21); CALCIUM 8.2 mg/dL (8.4-10.5); GFR AFRICAN-AMERICAN > 60; GFR NON-AFRICAN AMERICAN > 60
[2018-04-08 06:17] LABS: BASO # 0.02 K/mm3 (0.0-2.0); BASO % 0.4 % (0.0-3.0); EOS # 0.1 (0.0-0.7); EOS % 2.4 % (1.5-5.0); GRAN # 2.33 (1.4-6.5); GRAN % 50.6 % (50.0-68.0); HEMOGLOBIN 8.7 g/dL (14.0-18.0); LYMPH # 1.8 (1.2-3.4); LYMPH % 38.3 % (22.0-35.0); MEAN CELL VOLUME 77.4 fl (80.0-105.0); MEAN PLATELET VOLUME 10.6 fl (7.0-11.0); MONO # 0.4 (0.1-0.6); MONO % 8.3 % (1.0-6.0); RBC 3.63 10^6/uL (3.5-6.1); RED CELL DISTRIBUTION WIDTH 24.3 % (11.5-14.5); WHITE BLOOD COUNT 4.6 10^3/ul (4.5-11.0)
--- NOTE | 2018-04-08 07:27 | DS ---
HOSPITAL COURSE: He came in with anemia down to 4, got multiple transfusions. Has GI bleed, low potassium, which will be replaced and hypertension and little bit of asthma. But right now, he is going for upper and lower endoscopy now that he has been off the Plavix and aspirin for 5 days, so I am hoping that he will have a good endoscopy and I could discharge him later today. He is happy with that plan also. PHYSICAL EXAMINATION: VITAL SIGNS: He has a 97.8 temperature, 84 pulse, 146/86 blood pressure, 14 respiratory rate, 100% O2 sat on room air. HEENT: Head is atraumatic, normocephalic. HEART: Regular rate. LUNGS: Clear to auscultation. ABDOMEN: Soft, nontender. Positive bowel sounds. No guarding, no rebound, no CVA tenderness. EXTREMITIES: No edema. MEDICATIONS: He is currently on potassium replacement, Protonix, IV fluids and metoprolol. LABORATORY DATA: He has 140 sodium; potassium 3.3, I replaced the potassium IV; BUN 9; creatinine 1.1; GFR is greater than 60; sugar is 95; calcium is 8.4; AST is 42; ALT is 26; alk phos 128. Total protein is 8.3. White count is 5.3; hemoglobin 9.9, much better than 4.6 when he came in; 31.2 hematocrit with 231 platelets. ASSESSMENT AND PLAN: He is going for upper and lower endoscopy today with GI. He was seen by GI and Cardiology. If he does well with the upper and lower endoscopy, my plan is to discharge him later today. Hopefully, we will not find anything. He will follow up with outpatient doctors. Poncho Caruso DO
[2018-04-08] MEDS: Metoprolol Succinate 25 mg XL Tab PO SCH (10:12)
[2018-04-08 10:14] VITALS: BP 152/67
--- NOTE | 2018-04-08 10:57 | CP.CCUPN ---
<Wong Izaguirre - Last Filed: 04/08/18 11:13> CCU Subjective - Physician Review Subjective (Free Text): Wong Izaguirre, PGY1 Critical Care Progress Note for Dr. Christine Patient was examined at bedside this morning. Denied lightheadedness, dizziness , chest pain, shortness of breath, abdominal pain, lower extremity pain, and changes in bowel/bladder. Patient was only complaining of throat discomfort but was explained that it was likely due to ET tube which was placed yesterday. No overnight changes. Full 12 Point ROS was reviewed and unremarkable except as stated above. CCU Objective - Vital Signs / Intake & Output Vital Signs (Last 4 hours): Vital Signs Pulse BP 04/08/18 10:12 89 152/67 H Intake and Output (Last 8hrs): Intake & Output 04/07/18 04/08/18 04/08/18 22:59 06:59 14:59 Intake Total 1870 680 Output Total 1140 520 Balance 730 160 Intake: IV 1240 480 Left Forearm 1240 480 Oral 630 200 Output: Urine 1140 520 Urine, Voided 1140 520 Other: # Voids Urine, Voided 6 # Bowel Movements 0 - Physical Exam Head: Positive for: Atraumatic, Normocephalic Pupils: Positive for: PERRL Extroacular Muscles: Positive for: EOMI Conjunctiva: Positive for: Normal Mouth: Positive for: Moist Mucous Membranes. Negative for: Drooling Pharnyx: Positive for: Normal Nose (External): Positive for: Atraumatic Respiratory/Chest: Positive for: Clear to Auscultation, Good Air Exchange. Negative for: Respiratory Distress, Accessory Muscle Use, Wheezes, Rales, Rhonchi, Tachypneic, Tender to Palpation Cardiovascular: Positive for: Regular Rate and Rhythm, Normal S1, S2, Peripheal Pulses Present. Negative for: Murmurs, Rub, Gallop Abdomen: Positive for: Normal Bowel Sounds. Negative for: Tenderness, Distention, Rebound, Guarding Back: Positive for: Normal Inspection Upper Extremity: Positive for: Normal Inspection, Normal ROM, NORMAL PULSES. Negative for: Cyanosis, Edema, Tenderness, Swelling Lower Extremity: Positive for: Normal Inspection, NORMAL PULSES, Normal ROM. Negative for: Edema, CALF TENDERNESS, Cyanosis, Tenderness Neurological: Positive for: Speech Normal, Motor Func Grossly Intact Skin: Positive for: Warm, Dry, Normal Color. Negative for: Rashes, Diaphoretic Psychiatric: Positive for: Alert, Oriented x 3 - Medications Active Medications: Active Medications Generic Name Dose Route Start Last Admin Trade Name Freq PRN Reason Stop Dose Admin Benzocaine/Menthol 1 pradeep 04/07/18 19:42 04/07/18 20:23 Cepacol Sore Throat MT 1 pradeep Q2H PRN Administration Sore Throat Clopidogrel Bisulfate 75 mg 04/07/18 13:30 04/08/18 10:12 Plavix PO 75 mg DAILY RENE Administration Metoprolol Succinate 25 mg 04/04/18 10:00 04/08/18 10:12 Toprol Xl PO 25 mg DAILY RENE Administration Morphine Sulfate 2 mg 04/07/18 12:33 04/08/18 06:43 Morphine IVP 2 mg Q4H PRN Administration Pain, severe (8-10) Pantoprazole Sodium 40 mg 04/04/18 10:00 04/08/18 05:45 Protonix Ec Tab PO 40 mg 0600 RENE Administration - Patient Studies Lab Studies: Lab Studies 04/08/18 04/08/18 04/07/18 Range/Units 05:20 05:20 11:00 WBC 4.6 D (4.5-11.0) 10^3/ul RBC 3.63 (3.5-6.1) 10^6/uL Hgb 8.7 L (14.0-18.0) g/dL Hct 28.1 L (42.0-52.0) % MCV 77.4 L (80.0-105.0) fl MCH 24.0 L (25.0-35.0) pg MCHC 31.0 (31.0-37.0) g/dl RDW 24.3 H (11.5-14.5) % Plt Count 205 (120.0-450.0) 10^3/uL MPV 10.6 (7.0-11.0) fl Gran % 50.6 (50.0-68.0) % Lymph % (Auto) 38.3 H (22.0-35.0) % Mchenry % (Auto) 8.3 H (1.0-6.0) % Eos % (Auto) 2.4 (1.5-5.0) % Baso % (Auto) 0.4 (0.0-3.0) % Gran # 2.33 (1.4-6.5) Lymph # (Auto) 1.8 (1.2-3.4) Mchenry # (Auto) 0.4 (0.1-0.6) Eos # (Auto) 0.1 (0.0-0.7) Baso # (Auto) 0.02 (0.0-2.0) K/mm3 Corrected WBC (Man) (4.5-11.0) K/mm3 Neutrophils % (Manual) (50.0-70.0) % Band Neutrophils % (0-2) % Lymphocytes % (Manual) (22.0-35.0) % Monocytes % (Manual) (1.0-6.0) % Basophils % (Manual) (0.0-1.0) % Nucleated RBC % % Platelet Evaluation (NORMAL) Polychromasia Hypochromasia Anisocytosis (manual) Sodium 144 142 (132-148) mmol/L Potassium 3.7 3.6 (3.6-5.0) mmol/L Chloride 113 H 108 H (98-107) mmol/L Carbon Dioxide 22 22 (21-33) mmol/L Anion Gap 13 16 (10-20) BUN 7 8 (7-21) mg/dL Creatinine 1.1 1.3 (0.8-1.5) mg/dl Est GFR ( Amer) > 60 > 60 Est GFR (Non-Af Amer) > 60 57 Random Glucose 88 187 H (70-110) mg/dL Calcium 8.2 L 7.8 L (8.4-10.5) mg/dL Phosphorus 5.2 H (2.5-4.5) mg/dL Magnesium 2.0 (1.7-2.2) mg/dL Total Bilirubin 0.5 0.4 (0.2-1.3) mg/dL AST 49 49 (17-59) U/L ALT 34 34 (7-56) U/L Alkaline Phosphatase 108 119 (38-126) U/L Troponin I 0.02 D ng/mL Total Protein 7.5 7.7 (5.8-8.3) g/dL Albumin 3.3 3.4 (3.0-4.8) g/dL Globulin 4.2 4.3 gm/dL Albumin/Globulin Ratio 0.8 L 0.8 L (1.1-1.8) 07/13/18 Range/Units 11:00 WBC 9.9 D (4.5-11.0) 10^3/ul RBC 3.81 (3.5-6.1) 10^6/uL Hgb 9.0 L (14.0-18.0) g/dL Hct 30.2 L (42.0-52.0) % MCV 79.3 L (80.0-105.0) fl MCH 23.6 L (25.0-35.0) pg MCHC 29.8 L (31.0-37.0) g/dl RDW 24.1 H (11.5-14.5) % Plt Count 236 (120.0-450.0) 10^3/uL MPV 10.5 (7.0-11.0) fl Gran % 60.9 (50.0-68.0) % Lymph % (Auto) 30.6 (22.0-35.0) % Mchenry % (Auto) 6.8 H (1.0-6.0) % Eos % (Auto) 1.5 (1.5-5.0) % Baso % (Auto) 0.2 (0.0-3.0) % Gran # 6.00 (1.4-6.5) Lymph # (Auto) 3.0 (1.2-3.4) Mchenry # (Auto) 0.7 H (0.1-0.6) Eos # (Auto) 0.2 (0.0-0.7) Baso # (Auto) 0.02 (0.0-2.0) K/mm3 Corrected WBC (Man) 9.4 (4.5-11.0) K/mm3 Neutrophils % (Manual) 63 (50.0-70.0) % Band Neutrophils % 2 (0-2) % Lymphocytes % (Manual) 27 (22.0-35.0) % Monocytes % (Manual) 7 H (1.0-6.0) % Basophils % (Manual) 1 (0.0-1.0) % Nucleated RBC % 5 % Platelet Evaluation Normal (NORMAL) Polychromasia Slight Hypochromasia 1+ Anisocytosis (manual) 1+ Sodium (132-148) mmol/L Potassium (3.6-5.0) mmol/L Chloride (98-107) mmol/L Carbon Dioxide (21-33) mmol/L Anion Gap (10-20) BUN (7-21) mg/dL Creatinine (0.8-1.5) mg/dl Est GFR ( Amer) Est GFR (Non-Af Amer) Random Glucose (70-110) mg/dL Calcium (8.4-10.5) mg/dL Phosphorus (2.5-4.5) mg/dL Magnesium (1.7-2.2) mg/dL Total Bilirubin (0.2-1.3) mg/dL AST (17-59) U/L ALT (7-56) U/L Alkaline Phosphatase (38-126) U/L Troponin I ng/mL Total Protein (5.8-8.3) g/dL Albumin (3.0-4.8) g/dL Globulin gm/dL Albumin/Globulin Ratio (1.1-1.8) Laboratory Results - last 24 hr 04/07/18 04/07/18 04/08/18 11:00 11:00 05:20 WBC 9.9 D 4.6 D RBC 3.81 3.63 Hgb 9.0 L 8.7 L Hct 30.2 L 28.1 L MCV 79.3 L 77.4 L MCH 23.6 L 24.0 L MCHC 29.8 L 31.0 RDW 24.1 H 24.3 H Plt Count 236 205 MPV 10.5 10.6 Gran % 60.9 50.6 Lymph % (Auto) 30.6 38.3 H Mchenry % (Auto) 6.8 H 8.3 H Eos % (Auto) 1.5 2.4 Baso % (Auto) 0.2 0.4 Gran # 6.00 2.33 Lymph # (Auto) 3.0 1.8 Mchenry # (Auto) 0.7 H 0.4 Eos # (Auto) 0.2 0.1 Baso # (Auto) 0.02 0.02 Corrected WBC (Man) 9.4 Neutrophils % (Manual) 63 Band Neutrophils % 2 Lymphocytes % (Manual) 27 Monocytes % (Manual) 7 H Basophils % (Manual) 1 Nucleated RBC % 5 Platelet Evaluation Normal Polychromasia Slight Hypochromasia 1+ Anisocytosis (manual) 1+ Sodium 142 Potassium 3.6 Chloride 108 H Carbon Dioxide 22 Anion Gap 16 BUN 8 Creatinine 1.3 Est GFR ( Amer) > 60 Est GFR (Non-Af Amer) 57 Random Glucose 187 H Calcium 7.8 L Phosphorus 5.2 H Magnesium 2.0 Total Bilirubin 0.4 AST 49 ALT 34 Alkaline Phosphatase 119 Troponin I 0.02 D Total Protein 7.7 Albumin 3.4 Globulin 4.3 Albumin/Globulin Ratio 0.8 L 04/08/18 05:20 WBC RBC Hgb Hct MCV MCH MCHC RDW Plt Count MPV Gran % Lymph % (Auto) Mchenry % (Auto) Eos % (Auto) Baso % (Auto) Gran # Lymph # (Auto) Mchenry # (Auto) Eos # (Auto) Baso # (Auto) Corrected WBC (Man) Neutrophils % (Manual) Band Neutrophils % Lymphocytes % (Manual) Monocytes % (Manual) Basophils % (Manual) Nucleated RBC % Platelet Evaluation Polychromasia Hypochromasia Anisocytosis (manual) Sodium 144 Potassium 3.7 Chloride 113 H Carbon Dioxide 22 Anion Gap 13 BUN 7 Creatinine 1.1 Est GFR ( Amer) > 60 Est GFR (Non-Af Amer) > 60 Random Glucose 88 Calcium 8.2 L Phosphorus Magnesium Total Bilirubin 0.5 AST 49 ALT 34 Alkaline Phosphatase 108 Troponin I Total Protein 7.5 Albumin 3.3 Globulin 4.2 Albumin/Globulin Ratio 0.8 L EKG/Cardiology Studies: Cardiology / EKG Studies 04/07/18 10:37 ELECTROCARDIOGRAM Stat Comment: Reason For Exam: s/p code blue Review of Systems - Review of Systems All systems: reviewed and no additional remarkable complaints except (as per HPI.) Critical Care Progress Note - Extremities/Vascular Does the Patient have a Central Venous Catheter?: No Does the Patient need a Central Venous Catheter?: No Does the Patient have a Galvin Catheter?: No Does the Patient need a Galvin Catheter?: No - Prophylaxis GI Prophylaxis GI: PPI - Prophylaxis DVT Prophylaxis DVT: Ambulatory - Nutrition Nutrition: Nutrition Category Date Time Status Heart Healthy Diet [DIET] Diets 04/08/18 Lunch Active Assessment/Plan - Assessment and Plan (Free Text) Assessment: Patient is a 57 y/o AA male with a PMH of CAD s/p stenting 10/17/17 (on DAPT), HTN, CKD, and CVA who presented for GI bleed and anemia s/p 6u pRBC transfused. Patient was undergoing endoscopy when he underwent PEA and asystole arrest, CODE BLUE was called and ROSC was obtained (Refer to nurse, anesthesia and code notes for more information). Patient was transferred to the ICU for management s /p cardiac arrest. In the ICU, patient was not in respiratory distress and was hemodynamically stable; after one hour, patient was successfully extubated. STAT CXR showed no evidence of rib fractures. STAT EKG following the code did not indicate any ST elevations or depressions, only sinus tachycardia. STAT Echo showed 57% EF with mild LVH. As per GI, there was no bleed on endoscopy and no further intervention is warranted. Currently, patient has no complains of chest pain or shortness of breath; he is out of bed and is not in respiratory distress. Patient is hemodynamically stable and safe for transfer to telemetry. Plan: Neuro: - Maintain normothermia - AAOx3 Pulm: - s/p extubation, currently saturating well on room air - Maintain SaO2 > 92% - CXR (04/07): no active disease, no osseous abnormalities or bone fractures - Pulm consulted (Dr. Spann), recs appreciated Cardio: - EKG (04/07): sinus tachycardia. No ST elevations or depressions. - Echo (04/07): EF 57%, mild concentric LVH, grade I abnormal relaxation function , trace AR, trace MR, mild TR, mild pulmonary HTN. - Troponins negative - Cardio consulted (Dr. Shay), recs appreciated - Maintain MAP > 65 GI: - As per GI, no GI bleed on endoscopy and no further intervention is warranted - Endoscopy (04/07): 5 mm pedunculated polyp removed from rectum. Internal hemorrhoids. - GI consulted (Dr. Elmore), recs appreciated - Advanced diet: HHD - GI ppx: protonix Renal: - replete lytes as needed Heme: - Monitor H/H: currently 8.7/28.1 (baseline 9) - Patient is ambulating ID: - No active infections Endo: - Maintain euglycemia Dispo: No acute issues at this time. Patient is hemodynamically stable and safe for transfer to telemetry. Case was discussed and reviewed with Attending Physician Dr. Christine <Dakota Christine - Last Filed: 04/08/18 16:21> CCU Objective - Vital Signs / Intake & Output Intake and Output (Last 8hrs): Intake & Output 04/08/18 04/08/18 04/08/18 06:59 14:59 22:59 Intake Total 680 Output Total 520 Balance 160 Weight 177 lb Intake: IV 480 Left Forearm 480 Oral 200 Output: Urine 520 Urine, Voided 520 Other: # Bowel Movements 0 - Patient Studies Lab Studies: Microbiology Studies 04/07/18 11:35 MRSA Culture (Admit) - Final Naris MRSA NOT DETECTED Lab Studies 04/08/18 04/08/18 Range/Units 05:20 05:20 WBC 4.6 D (4.5-11.0) 10^3/ul RBC 3.63 (3.5-6.1) 10^6/uL Hgb 8.7 L (14.0-18.0) g/dL Hct 28.1 L (42.0-52.0) % MCV 77.4 L (80.0-105.0) fl MCH 24.0 L (25.0-35.0) pg MCHC 31.0 (31.0-37.0) g/dl RDW 24.3 H (11.5-14.5) % Plt Count 205 (120.0-450.0) 10^3/uL MPV 10.6 (7.0-11.0) fl Gran % 50.6 (50.0-68.0) % Lymph % (Auto) 38.3 H (22.0-35.0) % Mchenry % (Auto) 8.3 H (1.0-6.0) % Eos % (Auto) 2.4 (1.5-5.0) % Baso % (Auto) 0.4 (0.0-3.0) % Gran # 2.33 (1.4-6.5) Lymph # (Auto) 1.8 (1.2-3.4) Mchenry # (Auto) 0.4 (0.1-0.6) Eos # (Auto) 0.1 (0.0-0.7) Baso # (Auto) 0.02 (0.0-2.0) K/mm3 Sodium 144 (132-148) mmol/L Potassium 3.7 (3.6-5.0) mmol/L Chloride 113 H (98-107) mmol/L Carbon Dioxide 22 (21-33) mmol/L Anion Gap 13 (10-20) BUN 7 (7-21) mg/dL Creatinine 1.1 (0.8-1.5) mg/dl Est GFR ( Amer) > 60 Est GFR (Non-Af Amer) > 60 Random Glucose 88 (70-110) mg/dL Calcium 8.2 L (8.4-10.5) mg/dL Total Bilirubin 0.5 (0.2-1.3) mg/dL AST 49 (17-59) U/L ALT 34 (7-56) U/L Alkaline Phosphatase 108 (38-126) U/L Total Protein 7.5 (5.8-8.3) g/dL Albumin 3.3 (3.0-4.8) g/dL Globulin 4.2 gm/dL Albumin/Globulin Ratio 0.8 L (1.1-1.8) Laboratory Results - last 24 hr 04/08/18 04/08/18 05:20 05:20 WBC 4.6 D RBC 3.63 Hgb 8.7 L Hct 28.1 L MCV 77.4 L MCH 24.0 L MCHC 31.0 RDW 24.3 H Plt Count 205 MPV 10.6 Gran % 50.6 Lymph % (Auto) 38.3 H Mchenry % (Auto) 8.3 H Eos % (Auto) 2.4 Baso % (Auto) 0.4 Gran # 2.33 Lymph # (Auto) 1.8 Mchenry # (Auto) 0.4 Eos # (Auto) 0.1 Baso # (Auto) 0.02 Sodium 144 Potassium 3.7 Chloride 113 H Carbon Dioxide 22 Anion Gap 13 BUN 7 Creatinine 1.1 Est GFR ( Amer) > 60 Est GFR (Non-Af Amer) > 60 Random Glucose 88 Calcium 8.2 L Total Bilirubin 0.5 AST 49 ALT 34 Alkaline Phosphatase 108 Total Protein 7.5 Albumin 3.3 Globulin 4.2 Albumin/Globulin Ratio 0.8 L Critical Care Progress Note - Nutrition Nutrition: Nutrition Category Date Time Status Heart Healthy Diet [DIET] Diets 04/08/18 Lunch Active Attending/Attestation - Attestation I have personally seen and examined this patient.: Yes I have fully participated in the care of the patient.: Yes I have reviewed all pertinent clinical information: Yes Notes (Text): 04/08/18 16:19 57 yo s/p momentary cardiac arrest during endoscopy, with subsequent ROSC. Alert , awake, oriented, OOB walking, talking, watching TV. Hemodynamically and respiratory lovelace stable. Has been discharged home by PMD
[2018-04-08 12:35] VITALS: PULSE 86; RESP 22; O2SAT 98
--- NOTE | 2018-04-08 14:45 | PN ---
DATE: 04/08/2018 SUBJECTIVE: The patient is without distress. PHYSICAL EXAMINATION: VITAL SIGNS: Blood pressure 152/67, heart rate is in the 80s. NECK: Negative JVD. LUNGS: Without rales. HEART: S1, S2. EXTREMITIES: Without edema. LABORATORY DATA: Hemoglobin is 8.7. Chemistries, BUN and creatinine are unremarkable. IMPRESSION: 1. Status post respiratory failure, post colonoscopy. 2. Stable respiratory, cardiac lovelace. 3. History of coronary artery disease. Given these findings, the patient can be transferred to telemetry today. Deni Shay MD
--- NOTE | 2018-04-08 22:57 | CON ---
DATE: 04/08/2018 PULMONARY CONSULTATION LOCATION: 129, bed 4. CHIEF COMPLAINT: Pulmonary evaluation requested status post intubation and mechanical ventilation, status post CPR. HISTORY OF PRESENT ILLNESS: The patient is a 57-year-old gentleman with a long medical history including coronary artery disease. The patient was stented in the past. He has chronic kidney disease and hypertension. He has had a stroke in the past. He recently had a GI bleed. He received 6 units of packed red blood cells. He underwent endoscopy and during that time, had an asystole arrest, was intubated and placed in the intensive care unit for further evaluation and treatment. The patient stated that he was short of breath at the time of the endoscopy. He states that he is feeling better now since he has been extubated and denies any shortness of breath. PAST MEDICAL HISTORY: Includes numerous problems discussed above. SOCIAL HISTORY: The patient has a long history of smoking, which he stopped this past September. He does not recall being diagnosed as having COPD, but does not know if he was actually tested for this. The patient denies drug abuse. FAMILY HISTORY: Coronary artery disease, otherwise normal. REVIEW OF SYSTEMS: Findings only referable to the system problems described above. Dyspnea noted. All other systems negative. OUTPATIENT MEDICATIONS: Numerous. Please note, the medication list on the chart. ALLERGIES: SHRIMP AND IODINE. PHYSICAL EXAMINATION: GENERAL: The patient is resting comfortably in bed, in no acute respiratory distress. He appears to be comfortable. There is no shortness of breath. VITAL SIGNS: Stable. Blood pressure 128/84, heart rate 80, respiratory rate 16. HEENT: Normocephalic, atraumatic. NECK: Supple. No jugular venous distention. CHEST: Good air movement. LUNGS: Essentially clear to percussion and auscultation. HEART: Regular rhythm. Systolic ejection murmur is heard. ABDOMEN: Soft. Bowel sounds normoactive without mass, guarding, or rebound. No organomegaly. EXTREMITIES: Reveal no clubbing, cyanosis, or edema. NEUROLOGIC: Awake, alert, oriented. SKIN: Dry; intact. LABORATORY STUDIES: White count 5300, hemoglobin 9.9, hematocrit 31, platelet count 231,000. Sodium 140, potassium 3.3, chloride 107, BUN 9, creatinine 1.1, glucose 95. Magnesium 1.9. Chest x-ray, no acute infiltrates. EKG, sinus tach, nonspecific ST-T wave changes. ASSESSMENT: 1. Status post cardiopulmonary resuscitation secondary to asystole. 2. Former smoker. 3. No evidence of chronic obstructive pulmonary disease at this time. 4. Awake and alert now with no respiratory distress, lungs clear. PLAN: Patient should have a pulmonary function study once he is up and about. We would evaluate his pulmonary function once he is cleared by Cardiology. Troponins and other cardiac enzymes were not elevated, but will be followed closely. Once stable, he will need to be evaluated for intrinsic pulmonary disease, having been a nonsmoker. A good chest x-ray, PA and lateral, and even perhaps a CAT scan should be completed at that time. Thank you for the opportunity to evaluate this julián gentleman. Evaristo Brooks MD MTDD
--- NOTE | 2018-04-09 05:42 | DS ---
HISTORY OF PRESENT ILLNESS: He had his upper endoscopy and lower endoscopy yesterday. Then he had an issue, was intubated and then extubated quickly afterwards. He is doing much better now. He has got no complaints. He is in good spirits. He is walking now, having the nurse walk him all around on the Intensive Care Unit, did very well. He will be discharged today. He was here for anemia down to 4, GI bleed, they did not find anything on the endoscopy. He will be on his medications which are Plavix, Protonix, Toprol, and aspirin. I put the amlodipine and the Catapres on hold because his blood pressure was pretty good. He will follow up with in the next 2 days to get blood pressure checked. PHYSICAL EXAMINATION: VITAL SIGNS: Temperature 98.2, 89 pulse, 152/67 blood pressure, 24 respiratory rate, and 100% O2 sat. HEENT: His head is atraumatic, normocephalic. HEART: Regular rate. LUNGS: Decreased breath sounds, but clear. ABDOMEN: Soft. EXTREMITIES: No edema. He is walking very well. LABORATORY DATA: He has a 144 sodium, potassium of 3.7, BUN 7, creatinine 1.1, GFR is greater than 60. Sugar is 88. Calcium is 8.2. Total bili is 0.5, AST is 49, ALT is 34, alkaline phosphatase 108. Troponin I is 0.02. Total protein 7.5. 1.23 INR. Urine was clean. White count 4.6, hemoglobin 8.7, hematocrit 20.1 and platelets are 205. ASSESSMENT AND PLAN: He was cleared to me yesterday by Gastroenterology that I can discharge him today. We will watch him overnight to make sure he is doing okay. He will be following up with in the outpatient for a blood pressure check and low potassium level, all prescriptions were given. Poncho Caruso DO [email or web address]
--- NOTE | 2018-04-14 07:21 | PQF ---
PROVIDER RESPONSE TEXT: Acute blood loss anemia REVIEWER QUERY TEXT: Anemia Type Anemia is documented in the Medical Record. Please specify the cause (includes suspected or probable cause) Such as: -- Due to acute blood loss -- Due to chronic blood loss -- Due to iron deficiency -- Due to postoperative blood loss -- Due to chronic disease -- Other, please specify The patient's Clinical Indicators include: admitted with GI bleed with anemia. Hgb 4.6 / 6.7.treated with blood transfusions. Query created by: Christine Castillo on 04/10/2018 8:47 AM Electronically signed by: Poncho Caruso DO 04/14/2018 7:18 AM
== END 2018-04-08 12:00 | disposition home or self-care (01) | DRG 377 ==
LOC: ED 20:42 → ERH 22:39 → 2RNO 04-04 02:00 → CCU 04-07 10:55
PROVIDERS: ADMIT Family Medicine; ATTEND Family Medicine
PROC: 30233N1 Transfusion of Nonautologous Red Blood Cells into Peripheral Vein, Percutaneous Approach (ICD-10-PCS; 2018-04-04)
PROC: 0DB68ZX Excision of Stomach, Via Natural or Artificial Opening Endoscopic, Diagnostic (ICD-10-PCS; 2018-04-07)
PROC: 0DBP8ZZ Excision of Rectum, Via Natural or Artificial Opening Endoscopic (ICD-10-PCS; 2018-04-07)
PROC: 5A1935Z Respiratory Ventilation, Less than 24 Consecutive Hours (ICD-10-PCS; 2018-04-07)
PROC: 0BH17EZ Insertion of Endotracheal Airway into Trachea, Via Natural or Artificial Opening (ICD-10-PCS; 2018-04-07)
PROC: 0DB98ZX Excision of Duodenum, Via Natural or Artificial Opening Endoscopic, Diagnostic (ICD-10-PCS; principal; 2018-04-07 08:45)
DX: K92.2 Gastrointestinal hemorrhage, unspecified (principal); J95.821 Acute postprocedural respiratory failure; I97.89 Other postprocedural complications and disorders of the circulatory system, not elsewhere classified; I97.121 Postprocedural cardiac arrest following other surgery; D62 Acute posthemorrhagic anemia; N18.9 Chronic kidney disease, unspecified; I25.118 Atherosclerotic heart disease of native coronary artery with other forms of angina pectoris; F17.210 Nicotine dependence, cigarettes, uncomplicated; J45.909 Unspecified asthma, uncomplicated; E78.00 Pure hypercholesterolemia, unspecified; I12.9 Hypertensive chronic kidney disease with stage 1 through stage 4 chronic kidney disease, or unspecified chronic kidney disease; E87.6 Hypokalemia; K29.70 Gastritis, unspecified, without bleeding; K62.1 Rectal polyp; K64.8 Other hemorrhoids; K44.9 Diaphragmatic hernia without obstruction or gangrene; Y84.8 Other medical procedures as the cause of abnormal reaction of the patient, or of later complication, without mention of misadventure at the time of the procedure; Z86.73 Personal history of transient ischemic attack (TIA), and cerebral infarction without residual deficits; Z95.5 Presence of coronary angioplasty implant and graft

== ENCOUNTER 2018-07-11 17:35 | Inpatient (IN) | payer BC ==
--- NOTE | 2018-07-11 18:17 | ED PDOC ---
Arrival/HPI - General Time Seen by Provider: 07/11/18 18:03 Historian: Patient - History of Present Illness Narrative History of Present Illness (Text): 07/11/18 18:16 58 year old male, with PMHx of CAD s/p stents, CKD, anemia, hypertension and CVA, presents to the Emergency Department complaining of chest pain since 1 week. Patient describes a pressure sensation radiating to his throat leading to associated shortness of breath. Patient informs exacerbation of symptoms with ambulation with a feeling of dizziness. Patient denies any other associated somatic complaints. Patient denies any fever, chills, nausea, vomiting, diarrhea, abdominal pain, cough, headache, neck pain, back pain, or any other complaints. Patient admits to using crack cocaine yesterday with improvement to symptoms. No dark or bloody stool. No diarrhea or constipation. No change in phonation, dysphagia or odynophagia. Patient informs compliance with his medications. PMD: Dr. Hartley Trust Manager: Dr. Shay Time/Duration: 1 week Symptom Onset: Gradual Symptom Course: Unchanged Quality: Pressure Activities at Onset: Light Context: Home Past Medical History - Provider Review Nursing Documentation Reviewed: Yes - Infectious Disease Hx of Infectious Diseases: None - Cardiac Hx Cardiac Disorders: Yes Hx Hypertension: Yes - Pulmonary Hx Respiratory Disorders: Yes (SMOKED CIGARETTES 3/D) - Neurological HX Cerebrovascular Accident: Yes - Renal Hx Renal Disorder: Yes - Endocrine/Metabolic Hx Endocrine Disorders: No - Hematological/Oncological Hx Blood Transfusions: No - Musculoskeletal/Rheumatological Hx Musculoskeletal Disorders: Yes Hx Arthritis: Yes Hx Falls: Yes - Psychiatric Hx Substance Use: No - Surgical History Hx Cardiac Catheterization: Yes Hx Coronary Stent: Yes (x5) - Anesthesia Hx Anesthesia Reactions: Yes ("I WAS OVERSEDATED") Hx Malignant Hyperthermia: No - Suicidal Assessment Feels Threatened In Home Enviroment: No Family/Social History - Physician Review Nursing Documentation Reviewed: Yes Family/Social History: No Known Family HX Smoking Status: Current Some Days Smoker Hx Alcohol Use: No Hx Substance Use: No Allergies/Home Meds Allergies/Adverse Reactions: Allergies Iodinated Contrast- Oral and IV Dye Allergy (Verified 04/03/18 20:51) ANAPHYLAXIS shrimp Allergy (Verified 04/03/18 20:50) RASH Review of Systems - Physician Review All systems were reviewed & negative as marked: Yes - Review of Systems Constitutional: absent: Fevers Respiratory: SOB. absent: Cough Cardiovascular: Chest Pain. absent: MILLER Gastrointestinal: absent: Abdominal Pain, Diarrhea, Nausea, Vomiting, Hematochezia, Hematemesis Genitourinary Male: absent: Dysuria, Hematuria Musculoskeletal: absent: Back Pain, Neck Pain Skin: absent: Rash Neurological: Dizziness. absent: Headache Physical Exam Respiratory Rate: Normal Appearance: Positive for: Well-Appearing, Non-Toxic, Comfortable Pain Distress: None Mental Status: Positive for: Alert and Oriented X 3 - Systems Exam Head: Present: Atraumatic, Normocephalic Pupils: Present: PERRL Extroacular Muscles: Present: EOMI Conjunctiva: Present: Normal Mouth: Present: Moist Mucous Membranes Pharnyx: Present: Normal. No: ERYTHEMA, TONSILS ENLARGED, Uvular Deviation, Muffled/Hoarse Voice Nose (External): Present: Atraumatic Nose (Internal): Present: Normal Inspection. No: Boggy, Septal Hematoma Neck: Present: Normal Range of Motion. No: Meningeal Signs, MIDLINE TENDERNESS Respiratory/Chest: Present: Clear to Auscultation, Good Air Exchange. No: Respiratory Distress, Accessory Muscle Use Cardiovascular: Present: Regular Rate and Rhythm, Normal S1, S2. No: Murmurs Abdomen: Present: Normal Bowel Sounds. No: Tenderness, Distention, Peritoneal Signs, McBurney's Point Tender, Rovsing's Sign Present Back: Present: Normal Inspection. No: CVA Tenderness, Midline Tenderness Upper Extremity: Present: Normal Inspection. No: Cyanosis, Edema Lower Extremity: Present: Normal Inspection. No: Edema Neurological: Present: GCS=15, CN II-XII Intact, Speech Normal Skin: Present: Warm, Dry, Normal Color. No: Rashes Psychiatric: Present: Alert, Oriented x 3, Normal Insight, Normal Concentration Medical Decision Making ED Course and Treatment: 07/11/18 18:27 Impression: 58 year old male presents to the Emergency Department complaining of chest pain, sob and dizziness. Given hx of stents x5, will seek cardio workup. Likely moderate risk given story, age, risk factors. Differential Diagnosis included but are not limited to: chest pain r/o ACS Plan: -- Labs -- Chest X-ray -- EKG -- Reassess and disposition Prior Visits: Notes and results from previous visits were reviewed. Progress Notes: 07/11/18 18:27 EKG: Ordered, reviewed, and independently interpreted the EKG. Rate : 89 BPM Rhythm : NSR Interpretation :No STEMI. 07/11/18 20:39 trop unremarkable. HGB 4.5. No dark or bloody stool per pt. No trauma or fall. Abdomen non-ttp. No extremity pain. Guaic is negative. Procedure chaperoned by Deni linn. Spoke with Dr. Caruso, who wants the patient to be admitted. given hx of gi bleed, anemia will seek Protonix drip Consent for blood done, 3 units to be given. Pt in NAD resting comfortably. Given well appearing, in NAD unlikely acute bleed. - Scribe Statement The provider has reviewed the documentation as recorded by the Franciscaibsonya Charles. All medical record entries made by the Franciscaibsonya were at my direction and personally dictated by me. I have reviewed the chart and agree that the record accurately reflects my personal performance of the history, physical exam, medical decision making, and the department course for this patient. I have also personally directed, reviewed, and agree with the discharge instructions and disposition. Disposition/Present on Arrival - Present on Arrival Any Indicators Present on Arrival: No History of DVT/PE: No History of Uncontrolled Diabetes: No Urinary Catheter: No History Surgical Site Infection Following: None - Disposition Have Diagnosis and Disposition been Completed?: Yes Diagnosis: Anemia Disposition: HOSPITALIZED Disposition Time: 20:39 Condition: GOOD
[2018-07-11 20:07] LABS: BASO # 0.02 K/mm3 (0.0-2.0); BASO % 0.4 % (0.0-3.0); EOS # 0.1 (0.0-0.7); EOS % 1.2 % (1.5-5.0); GRAN # 3.62 (1.4-6.5); LYMPH # 1.7 (1.2-3.4); LYMPH % 29.5 % (22.0-35.0); MEAN CELL VOLUME 71.6 fl (80.0-105.0); MEAN CORPUSCULAR HEMOGLOBIN 19.7 pg (25.0-35.0); MEAN CORPUSCULAR HGB CONC 27.4 g/dl (31.0-37.0); MEAN PLATELET VOLUME 10.2 fl (7.0-11.0); MONO # 0.3 (0.1-0.6); MONO % 4.9 % (1.0-6.0); RBC 2.29 10^6/uL (3.5-6.1); RED CELL DISTRIBUTION WIDTH 17.9 % (11.5-14.5); WHITE BLOOD COUNT 5.7 10^3/ul (4.5-11.0)
[2018-07-11 20:16] LABS: HEMOGLOBIN 4.5 g/dL (14.0-18.0)
[2018-07-11 20:17] LABS: ALB/GLOB RATIO 0.7 (1.1-1.8); ALBUMIN 3.6 g/dL (3.0-4.8); ALT/SGPT 22 U/L (7-56); AST/SGOT 42 U/L (17-59); BLOOD UREA NITROGEN 13 mg/dL (7-21); CALCIUM 8.8 mg/dL (8.4-10.5); GFR NON-AFRICAN AMERICAN > 60
[2018-07-11 20:37] LABS: B-TYPE NATRIURETIC PEPTIDE 39.4 pg/mL (0-450); TROPONIN I < 0.01 ng/mL
[2018-07-11] MEDS: Pantoprazole 40mg/100mL NS 40 MG/100 ML BAG IVPB SCH (21:19)
[2018-07-11] MEDS: Sodium Chloride 0.45% 1,000 ML IV SCH (21:58)
--- NOTE | 2018-07-11 23:15 | CARD ---
APPROVED REPORT Date of service: 07/11/2018 EKG Measurement Heart [id number] <Conclusion> Normal sinus rhythm Minimal voltage criteria for LVH, may be normal variant Abnormal ECG
[2018-07-12 00:07] VITALS: BMI 28.2
[2018-07-12] MEDS: Pantoprazole 40mg/100mL NS 40 MG/100 ML BAG IVPB SCH ×2 (01:58→06:53)
--- NOTE | 2018-07-12 08:24 | HP ---
HISTORY OF PRESENT ILLNESS: I have known Madhav for a while now. He does not always come into the hospital, but I see him when he comes to the hospital. He is a 58-year-old -[place] male who presents with an interesting history of chest pain for about a week, pressure sensation radiating to his throat, and shortness of breath. Symptoms started happening after ambulating with feeling of dizziness, also he said it started to happen when he did the crack cocaine. Then he stopped doing the crack cocaine, he started to feel a little bit better with these symptoms. PAST MEDICAL HISTORY: Coronary artery disease, status post stents, chronic kidney disease, anemia in the past, hypertension, he has had a CVA in the past. He has seen Dr. 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 I got Dr. Shay in to see him. He is having pressure in the chest. He has hypertension history. He still smokes cigarettes. He has a CVA, kidney disorder in the past, arthritis, he has multiple falls, coronary stents x5. He has diabetes and hypertension in the family. No alcohol, but he doing crack cocaine. He is doing other drugs, he did not tell me, but he kind of laughed about it when he was telling me. ALLERGIES: HE HAS ALLERGIES TO IODINATED CONTRAST ORAL AND IV DYES, AND SHRIMP. REVIEW OF SYSTEMS: No apparent fevers. He is short of breath. No cough. He has chest pain. No dyspnea on exertion. No palpitations. No abdominal pain, diarrhea, nausea, or vomiting. No back pain or neck pain. No headache. No skin issues. He is actually yelling right now for food in the ER. PHYSICAL EXAMINATION: VITAL SIGNS: I did not see the vital signs yet in the chart, I will look again after I am dictating. HEENT: His head is atraumatic and normocephalic. Extraocular muscles are intact. No acute vision or hearing loss. Pupils equal and reactive to light. Throat is moist. GENERAL: He is alert and oriented x3. He is well appearing, nontoxic, comfortable at this time in the rshirley. NECK: Supple. No JVD. HEART: Regular rate. Normal S1 and S2. LUNGS: Decreased breath sounds, but clear to auscultation. Poor inspiration. ABDOMEN: Soft and nontender. Positive bowel sounds. No guarding. No rebound. No CVA tenderness. EXTREMITIES: No edema of the extremities. SKIN: Warm and dry. NEUROLOGIC: GCS is 15. Cranial nerves II through XII grossly intact. Alert and oriented x3. LYMPHATICS: Thyroid midline. No palpable appreciable lymphadenopathy. LABORATORY DATA: He had multiple tests done. He has 141 sodium; potassium 3.1, we replaced the potassium. BUN 13, creatinine 1.2, GFR is greater than 60, sugar is 130. Calcium is 8.8; magnesium 1.9. Total bili is 0.1, AST is 42, ALT is 22, alk phos 116. Troponin I less than 0.01. BNP is Total protein is 8.6, albumin is 2.6, . White count is 5.7; hemoglobin is 4.5, quite low; hematocrit 16.4, and platelets of 233. Chest x-ray and EKG are pending. ASSESSMENT AND PLAN: He is going to have a consult with Gastroenterology. He is going to be transfused up to 4 units this evening of IV fluids. We have put him back on his Lipitor, his Norvasc, his Protonix, and metoprolol. I am putting on hold his Plavix and his aspirin and his clonidine. I am going to consult Cardiology. We will check his labs tomorrow. He will have oxygen, and we will check his troponins. He is here for a few things: 1. Chest pain. 2. Shortness of breath. 3. Severe anemia. 4. Also drug abuse with crack cocaine. Poncho Caruso DO MTDD
--- NOTE | 2018-07-12 09:07 | CP.PCM.CON ---
<Manuel Garcia - Last Filed: 07/12/18 13:50> History of Present Illness - History of Present Illness History of Present Illness: PGY-4 GI Fellow Consult Note 58 yo BM with h/o CAD s/p stenting 10/17/17 (on DAPT), HTN, CKD, CVA presenting with dyspnea on exertion and chest pain. He reports midsternal chest discomfort with radiation to his neck. Worse with exertion, some relief when he used crack cocaine. States that he has at least daily formed brown bowel movements. He denies any n/v, abd pain, melena nor hematochezia. He reports compliance with his DAPT. He had recent stay back in March with for symptomatic anemia attributed to GI bleed but EGD+CSPY did not reveal a clear source. 12 point ROS negative other than stated above 04/07/18 EGD: 3 cm HH, Gastritis (Bx negative), duodenal mucosa changes (neg for celiac) CSPY: 5 mm hyperplastic polyp in rectum, int hemorrhoids MHx CAD w/stenting 10/18/17 CKD CVA "Anemia" SurgHx: Cardiac Cath Meds: reviewed in NOV FamHx: Denied family h/o GI disordered or CA SocHx: Quit Tob in Sep 2017, Denies EtOH, + cocaine All: Contrast (Anaphylaxis), Shrimp (Rash) Past Patient History - Infectious Disease Hx of Infectious Diseases: None - Past Social History Smoking Status: Current Some Days Smoker - CARDIAC Hx Cardiac Disorders: Yes Hx Hypertension: Yes - PULMONARY Hx Respiratory Disorders: No Other/Comment: quit 1 year ago - NEUROLOGICAL HX Cerebrovascular Accident: Yes - RENAL Hx Chronic Kidney Disease: Yes - ENDOCRINE/METABOLIC Hx Endocrine Disorders: No - HEMATOLOGICAL/ONCOLOGICAL Hx Blood Transfusions: No - MUSCULOSKELETAL/RHEUMATOLOGICAL Hx Musculoskeletal Disorders: Yes Hx Arthritis: Yes Hx Falls: Yes - PSYCHIATRIC Hx Emotional Abuse: No Hx Physical Abuse: No - SURGICAL HISTORY Hx Surgeries: Yes (CARDIAC STENTS X 3.) Hx Cardiac Catheterization: Yes Hx Coronary Stent: Yes (x5) - ANESTHESIA Hx Anesthesia Reactions: Yes ("I WAS OVERSEDATED") Hx Malignant Hyperthermia: No Meds Allergies/Adverse Reactions: Allergies Allergy/AdvReac Type Severity Reaction Status Date / Time Iodinated Contrast- Oral and Allergy ANAPHYLAXIS Verified 04/03/18 20:51 IV Dye shrimp Allergy RASH Verified 04/03/18 20:50 - Medications Medications: Current Medications Amlodipine Besylate (Norvasc) 5 mg PO DAILY [facility] Atorvastatin Calcium (Lipitor) 40 mg PO DAILY [facility] Pantoprazole Sodium (Protonix 40mg Ivpb) 40 mg in 100 mls @ 20 mls/hr IVPB .Q5H [facility] Last Admin: 07/12/18 06:53 Dose: 20 mls/hr Sodium Chloride (Sodium Chloride 0.45%) 1,000 mls @ 40 mls/hr IV .Q24H [facility] Last Admin: 07/11/18 21:58 Dose: 40 mls/hr Metoprolol Succinate (Toprol Xl) 25 mg PO DAILY [facility] Pantoprazole Sodium (Protonix Inj) 40 mg IVP Q12 [facility] Last Admin: 07/11/18 21:36 Dose: Not Given Physical Exam - Constitutional Appears: Well, Non-toxic, No Acute Distress - Head Exam Head Exam: ATRAUMATIC, NORMAL INSPECTION - Eye Exam Eye Exam: EOMI, Normal appearance. absent: Conjunctival injection - ENT Exam ENT Exam: Mucous Membranes Moist. absent: Mucous Membranes Dry, Normal External Ear Exam - Respiratory Exam Respiratory Exam: Accessory Muscle Use, Clear to Auscultation Bilateral, NORMAL BREATHING PATTERN - Cardiovascular Exam Cardiovascular Exam: REGULAR RHYTHM, RRR - GI/Abdominal Exam GI & Abdominal Exam: Normal Bowel Sounds, Soft. absent: Bruit, Diminished Bowel Sounds, Distended, Firm, Guarding, Hernia, Hyperactive Bowel Sounds, Hypoactive Bowel Sounds, Mass, Organomegaly, Pulsatile Mass, Rebound, Rigid, Tenderness - Rectal Exam Rectal Exam: NORMAL INSPECTION Additional comments: no stool w/n rectal vault, ext hemorroid at 11 oclock - Extremities Exam Extremities exam: Positive for: normal inspection. Negative for: pedal edema - Neurological Exam Neurological exam: Alert, CN II-XII Intact, Oriented x3 - Psychiatric Exam Psychiatric exam: Normal Affect, Normal Mood - Skin Skin Exam: Normal Color, Warm Results - Vital Signs Recent Vital Signs: Last Vital Signs Temp 98.8 F 07/12/18 08:57 Pulse 101 H 07/12/18 08:57 Resp 18 07/12/18 08:57 BP 132/60 07/12/18 08:57 Pulse Ox 100 07/12/18 05:52 - Labs Result Diagrams: 07/12/18 11:00 07/12/18 11:00 Labs: Laboratory Results - last 24 hr 07/11/18 07/11/18 07/11/18 19:59 19:59 21:00 WBC 5.7 D RBC 2.29 L Hgb 4.5 L* D Hct 16.4 L* MCV 71.6 L D MCH 19.7 L MCHC 27.4 L RDW 17.9 H Plt Count 233 MPV 10.2 Gran % 64.0 Lymph % (Auto) 29.5 [place] % (Auto) 4.9 Eos % (Auto) 1.2 L Baso % (Auto) 0.4 Gran # 3.62 Lymph # (Auto) 1.7 [place] # (Auto) 0.3 Eos # (Auto) 0.1 Baso # (Auto) 0.02 Sodium 141 Potassium 3.1 L Chloride 109 H Carbon Dioxide 23 Anion Gap 12 BUN 13 Creatinine 1.2 Est GFR ( Amer) > 60 Est GFR (Non-Af Amer) > 60 Random Glucose 130 H Calcium 8.8 Magnesium 1.9 Total Bilirubin 0.1 L AST 42 ALT 22 Alkaline Phosphatase 116 Troponin I < 0.01 D NT-Pro-B Natriuret Pep 39.4 Total Protein 8.6 H Albumin 3.6 Globulin 5.0 Albumin/Globulin Ratio 0.7 L Blood Type A POSITIVE Antibody Screen Negative Crossmatch See Detail BBK History Checked Patient has bt Assessment & Plan - Assessment and Plan (Free Text) Assessment: 58 yo BM with CAD on DAPT presenting with chest pain and MILLER, found to have Hgb of 4.5 from 8.7. # Acute on Chronic Microcytic anemia: Unclear cause. Had similar presentation in March with EGD+CSPY without clear source. Suspect related to small bowel source? Pt with ongoing DAPT putting at risk for bleeding as well as recent cocaine abuse. Plan: - No signs of active GI bleed at this time - PO PPI daily - Monitor Hgb, responded appropriately to 3 units PRBCs - Heart healthy diet - Restart ASA - Recommend VCE as outpatient - Recommend Hematology evaluation Patient discussed with Dr. Chacko. See attestation for further recs/changes. <Bruce Chacko - Last Filed: 07/12/18 18:18> Meds - Medications Medications: Current Medications Acetaminophen (Tylenol 325mg Tab) 650 mg PO Q6H PRN PRN Reason: Fever >100.4 F Amlodipine Besylate (Norvasc) 5 mg PO DAILY [facility] Last Admin: 07/12/18 09:41 Dose: 5 mg Atorvastatin Calcium (Lipitor) 40 mg PO DAILY [facility] Last Admin: 07/12/18 09:40 Dose: 40 mg Sodium Chloride (Sodium Chloride 0.45%) 1,000 mls @ 40 mls/hr IV .Q24H [facility] Last Admin: 07/11/18 21:58 Dose: 40 mls/hr Metoprolol Succinate (Toprol Xl) 25 mg PO DAILY [facility] Last Admin: 07/12/18 09:40 Dose: 25 mg Oxymetazoline HCl (Afrin 0.05%) 0 ml NS Q12H [facility] Last Admin: 07/12/18 16:09 Dose: 1 spr Pantoprazole Sodium (Protonix Inj) 40 mg IVP Q12 [facility] Last Admin: 07/12/18 09:43 Dose: Not Given Sodium Chloride ([place] Nasal [place]) 0 ml NS QID [facility] Last Admin: 07/12/18 16:09 Dose: 1 spr Results - Vital Signs Recent Vital Signs: Last Vital Signs Temp 98.6 F 07/12/18 17:48 Pulse 84 07/12/18 17:48 Resp 19 07/12/18 17:48 BP 145/88 07/12/18 17:48 Pulse Ox 100 07/12/18 05:52 - Labs Result Diagrams: 07/12/18 11:00 07/12/18 11:00 Labs: Laboratory Results - last 24 hr 07/11/18 07/11/18 07/11/18 19:59 19:59 21:00 WBC 5.7 D RBC 2.29 L Hgb 4.5 L* D Hct 16.4 L* MCV 71.6 L D MCH 19.7 L MCHC 27.4 L RDW 17.9 H Plt Count 233 MPV 10.2 Gran % 64.0 Lymph % (Auto) 29.5 [place] % (Auto) 4.9 Eos % (Auto) 1.2 L Baso % (Auto) 0.4 Gran # 3.62 Lymph # (Auto) 1.7 [place] # (Auto) 0.3 Eos # (Auto) 0.1 Baso # (Auto) 0.02 Sodium 141 Potassium 3.1 L Chloride 109 H Carbon Dioxide 23 Anion Gap 12 BUN 13 Creatinine 1.2 Est GFR ( Amer) > 60 Est GFR (Non-Af Amer) > 60 Random Glucose 130 H Calcium 8.8 Magnesium 1.9 Total Bilirubin 0.1 L AST 42 ALT 22 Alkaline Phosphatase 116 Troponin I < 0.01 D NT-Pro-B Natriuret Pep 39.4 Total Protein 8.6 H Albumin 3.6 Globulin 5.0 Albumin/Globulin Ratio 0.7 L Blood Type A POSITIVE Antibody Screen Negative Crossmatch See Detail BBK History Checked Patient has bt 07/12/18 07/12/18 11:00 11:00 WBC 5.7 RBC 3.31 L Hgb 7.6 L D Hct 25.1 L MCV 75.8 L D MCH 23.0 L MCHC 30.3 L RDW 17.6 H Plt Count 175 MPV 9.5 Gran % Lymph % (Auto) [place] % (Auto) Eos % (Auto) Baso % (Auto) Gran # Lymph # (Auto) [place] # (Auto) Eos # (Auto) Baso # (Auto) Sodium 141 Potassium 3.4 L Chloride 111 H Carbon Dioxide 22 Anion Gap 12 BUN 13 Creatinine 1.2 Est GFR ( Amer) > 60 Est GFR (Non-Af Amer) > 60 Random Glucose 109 Calcium 8.5 Magnesium Total Bilirubin 0.8 AST 26 ALT 31 Alkaline Phosphatase 102 Troponin I < 0.01 NT-Pro-B Natriuret Pep Total Protein 7.7 Albumin 3.3 Globulin 4.4 Albumin/Globulin Ratio 0.8 L Blood Type Antibody Screen Crossmatch BBK History Checked Attending/Attestation - Attestation I have personally seen and examined this patient.: Yes I have fully participated in the care of the patient.: Yes I have reviewed all pertinent clinical information: Yes Notes (Text): 07/12/18 18:15 Patient seen with Gi fellow in am. This is a 58 yr old M with history of CAD s/p stent in September 2017 on RAUL, cocaine abuse with nose bleed admitted for symptomatic anemia. Similar presentation few months ago when EGD and Colonoscopy was performed showing no source of GI bleeding- s/p EGD and colonoscopy showing mild gastritis, diminutive rectal polyp, internal hemorrhoids. Transfuse as necessary. No overt bleeding. Denies dark stools, hematemesis, hematochezia. Will benefit from outpatient capsule study and hematology consult. Diet as tolerated. No further GI work up required.
--- NOTE | 2018-07-12 09:21 | RAD ---
Date of service: 07/11/2018 HISTORY: cp COMPARISON: 04/07/2018 TECHNIQUE: Chest PA and lateral FINDINGS: LUNGS: No active pulmonary disease. PLEURA: No significant pleural effusion identified. No pneumothorax apparent. CARDIOVASCULAR: Normal. OSSEOUS STRUCTURES: No significant abnormalities. VISUALIZED UPPER ABDOMEN: Normal. OTHER FINDINGS: None. IMPRESSION: No active disease.
[2018-07-12] MEDS: Metoprolol Succinate 25 mg XL Tab PO SCH (09:40)
[2018-07-12 11:10] LABS: HEMOGLOBIN 7.6 g/dL (14.0-18.0); MEAN CELL VOLUME 75.8 fl (80.0-105.0); MEAN CORPUSCULAR HGB CONC 30.3 g/dl (31.0-37.0); MEAN PLATELET VOLUME 9.5 fl (7.0-11.0); RBC 3.31 10^6/uL (3.5-6.1); RED CELL DISTRIBUTION WIDTH 17.6 % (11.5-14.5); WHITE BLOOD COUNT 5.7 10^3/ul (4.5-11.0)
[2018-07-12 11:26] LABS: ALB/GLOB RATIO 0.8 (1.1-1.8); ALBUMIN 3.3 g/dL (3.0-4.8); ALT/SGPT 31 U/L (7-56); AST/SGOT 26 U/L (17-59); BLOOD UREA NITROGEN 13 mg/dL (7-21); CALCIUM 8.5 mg/dL (8.4-10.5); GFR NON-AFRICAN AMERICAN > 60
[2018-07-12 11:32] LABS: TROPONIN I < 0.01 ng/mL
--- NOTE | 2018-07-12 12:14 | PN ---
DATE: 07/12/2018 SUBJECTIVE: I saw him resting comfortably in bed this morning. He has got blood being transfused. He has consults with Cardiology and GI. MEDICATIONS: He is currently on IV fluids, Lipitor, Norvasc, Protonix and Toprol. PHYSICAL EXAMINATION: VITAL SIGNS: 98.8 temp, 96 pulse, 121/70 blood pressure, 100% O2 sat. HEENT: His head is atraumatic, normocephalic. HEART: Regular rate. LUNGS: Decreased breath sounds, but clear. ABDOMEN: Mildly distended. Decreased bowel sounds, but no guarding. No rebound. EXTREMITIES: Have no edema. LABORATORY DATA: He had some issues with his blood. He had a 5.7 white count, 4.5 hemoglobin yesterday, 16.4 hematocrit with 233 platelets. Sodium is 141; potassium is 3.1, I replaced the potassium; BUN 13; creatinine 1.2; GFR is greater than 60; sugar is 130; calcium is 8.8; magnesium is 1.9; AST is 42; ALT is 22; alk phos 116; troponin I is less than 0.01; BNP is 39.4; total protein is 8.6; albumin is 3.6. ASSESSMENT AND PLAN: He is getting transfused up to 4 units today that I think they are starting the third and the fourth will be coming afterwards. The chest x-ray is pending. There are consults with Cardiology and GI. I will check his labs tomorrow. He is hungry, which is good and he is feeling a little bit better. He was doing crack cocaine and other things, he does not remember and now he is very anemic. We are giving him blood and we will see what GI and Cardiology have to add and we will continue aggressive treatment and care on [facility] who had symptomatic anemia, severe anemia, drug use with crack cocaine, low potassium, coronary artery disease. Poncho Caruso DO
--- NOTE | 2018-07-12 12:50 | CP.PCM.CON ---
History of Present Illness - History of Present Illness History of Present Illness: 58 y/o AA male admitted to hospital for chest pain. Pt has a cardiac hx and takes plavix and 81mg ASA daily. Pt has been bleeding daily from nose for quite some time. Pt has known hx of large septum perforation from hx of sniffing c ocaine. He currently uses crack cocaine (smokes). He packs his nose daily with tissue to try to alleviate the bleeding. Review of Systems - Constitutional Constitutional: As Per HPI - EENT Eyes: As Per HPI Ears: As Per HPI Nose/Mouth/Throat: As Per HPI - Cardiovascular Cardiovascular: As Per HPI - Respiratory Respiratory: As Per HPI - Gastrointestinal Gastrointestinal: As Per HPI - Genitourinary Genitourinary: As Per HPI - Musculoskeletal Musculoskeletal: As Per HPI - Integumentary Integumentary: As Per HPI - Neurological Neurological: As Per HPI - Psychiatric Psychiatric: As Per HPI - Endocrine Endocrine: As Per HPI - Hematologic/Lymphatic Hematologic: As Per HPI Past Patient History - Infectious Disease Hx of Infectious Diseases: None - Past Social History Smoking Status: Current Some Days Smoker - CARDIAC Hx Cardiac Disorders: Yes Hx Hypertension: Yes - PULMONARY Hx Respiratory Disorders: No Other/Comment: quit 1 year ago - NEUROLOGICAL HX Cerebrovascular Accident: Yes - RENAL Hx Chronic Kidney Disease: Yes - ENDOCRINE/METABOLIC Hx Endocrine Disorders: No - HEMATOLOGICAL/ONCOLOGICAL Hx Blood Transfusions: No - MUSCULOSKELETAL/RHEUMATOLOGICAL Hx Musculoskeletal Disorders: Yes Hx Arthritis: Yes Hx Falls: Yes - PSYCHIATRIC Hx Emotional Abuse: No Hx Physical Abuse: No - SURGICAL HISTORY Hx Surgeries: Yes (CARDIAC STENTS X 3.) Hx Cardiac Catheterization: Yes Hx Coronary Stent: Yes (x5) - ANESTHESIA Hx Anesthesia Reactions: Yes ("I WAS OVERSEDATED") Hx Malignant Hyperthermia: No Meds Allergies/Adverse Reactions: Allergies Allergy/AdvReac Type Severity Reaction Status Date / Time Iodinated Contrast- Oral and Allergy ANAPHYLAXIS Verified 04/03/18 20:51 IV Dye shrimp Allergy RASH Verified 04/03/18 20:50 - Medications Medications: Current Medications Amlodipine Besylate (Norvasc) 5 mg PO DAILY [facility] Last Admin: 07/12/18 09:41 Dose: 5 mg Atorvastatin Calcium (Lipitor) 40 mg PO DAILY [facility] Last Admin: 07/12/18 09:40 Dose: 40 mg Sodium Chloride (Sodium Chloride 0.45%) 1,000 mls @ 40 mls/hr IV .Q24H [facility] Last Admin: 07/11/18 21:58 Dose: 40 mls/hr Metoprolol Succinate (Toprol Xl) 25 mg PO DAILY [facility] Last Admin: 07/12/18 09:40 Dose: 25 mg Pantoprazole Sodium (Protonix Inj) 40 mg IVP Q12 [facility] Last Admin: 07/12/18 09:43 Dose: Not Given Physical Exam - Constitutional Appears: Well, Non-toxic - Head Exam Head Exam: ATRAUMATIC, NORMAL INSPECTION - Eye Exam Eye Exam: EOMI, Normal appearance, PERRL Pupil Exam: NORMAL ACCOMODATION - ENT Exam ENT Exam: Mucous Membranes Moist Additional comments: Ears: wnl canals and tympanic membranes Nose: large central septum perforation with blood tinged area Throat : poor dentition, palpable rt stone of Warthin's duct Neck Tender right submaxillary gland with palpation - Neck Exam Additional comments: tenderness rt smg - Respiratory Exam Respiratory Exam: NORMAL BREATHING PATTERN Results - Vital Signs Recent Vital Signs: Last Vital Signs Temp 98.8 F 07/12/18 08:57 Pulse 101 H 07/12/18 09:41 Resp 18 07/12/18 08:57 BP 132/60 07/12/18 09:41 Pulse Ox 100 07/12/18 05:52 - Labs Result Diagrams: 07/12/18 11:00 07/12/18 11:00 Labs: Laboratory Results - last 24 hr 07/11/18 07/11/18 07/11/18 19:59 19:59 21:00 WBC 5.7 D RBC 2.29 L Hgb 4.5 L* D Hct 16.4 L* MCV 71.6 L D MCH 19.7 L MCHC 27.4 L RDW 17.9 H Plt Count 233 MPV 10.2 Gran % 64.0 Lymph % (Auto) 29.5 Callahan % (Auto) 4.9 Eos % (Auto) 1.2 L Baso % (Auto) 0.4 Gran # 3.62 Lymph # (Auto) 1.7 Callahan # (Auto) 0.3 Eos # (Auto) 0.1 Baso # (Auto) 0.02 Sodium 141 Potassium 3.1 L Chloride 109 H Carbon Dioxide 23 Anion Gap 12 BUN 13 Creatinine 1.2 Est GFR ( Amer) > 60 Est GFR (Non-Af Amer) > 60 Random Glucose 130 H Calcium 8.8 Magnesium 1.9 Total Bilirubin 0.1 L AST 42 ALT 22 Alkaline Phosphatase 116 Troponin I < 0.01 D NT-Pro-B Natriuret Pep 39.4 Total Protein 8.6 H Albumin 3.6 Globulin 5.0 Albumin/Globulin Ratio 0.7 L Blood Type A POSITIVE Antibody Screen Negative Crossmatch See Detail BBK History Checked Patient has bt 07/12/18 07/12/18 11:00 11:00 WBC 5.7 RBC 3.31 L Hgb 7.6 L D Hct 25.1 L MCV 75.8 L D MCH 23.0 L MCHC 30.3 L RDW 17.6 H Plt Count 175 MPV 9.5 Gran % Lymph % (Auto) Callahan % (Auto) Eos % (Auto) Baso % (Auto) Gran # Lymph # (Auto) Callahan # (Auto) Eos # (Auto) Baso # (Auto) Sodium 141 Potassium 3.4 L Chloride 111 H Carbon Dioxide 22 Anion Gap 12 BUN 13 Creatinine 1.2 Est GFR ( Amer) > 60 Est GFR (Non-Af Amer) > 60 Random Glucose 109 Calcium 8.5 Magnesium Total Bilirubin 0.8 AST 26 ALT 31 Alkaline Phosphatase 102 Troponin I < 0.01 NT-Pro-B Natriuret Pep Total Protein 7.7 Albumin 3.3 Globulin 4.4 Albumin/Globulin Ratio 0.8 L Blood Type Antibody Screen Crossmatch BBK History Checked Assessment & Plan (1) Anemia Status: Acute (2) Fatigue Status: Acute (3) Hypertension Status: Acute (4) Renal insufficiency Status: Acute (5) Symptomatic anemia Status: Acute (6) Epistaxis Status: Acute (7) Nasal septum perforation Status: Acute (8) Cardiac disease Status: Acute (9) Submandibular duct obstruction Status: Acute (10) Sialadenitis Status: Acute (11) Sialolithiasis of submandibular gland Status: Acute - Assessment and Plan (Free Text) Plan: Pt made aware to pack nose with tampons if bleeding, pt to use afrin if bleeding severe, pt to use saline/vasoline to keep moist and add humidifier to bedroom. Pt to not use drugs in nose for that will make nose bleed-made aware. Pt to get CT for right chronic sialadenitis presumed to be from salivary stone. will or lashawn without contrast for hx of kidney disease. F/u in office for gland w/u and epistaxis treatment. - Date & Time Date: 07/12/18 Time: 12:50
--- NOTE | 2018-07-12 14:33 | CT ---
Date of service: 07/12/2018 PROCEDURE: CT NECK WITHOUT CONTRAST HISTORY: right submandibular stone COMPARISON: None available. TECHNIQUE: CT of the neck without intravenous contrast. Coronal and sagittal reformats generated. Radiation dose: Total exam DLP = 479.64 mGy-cm. This CT exam was performed using one or more of the following dose reduction techniques: Automated exposure control, adjustment of the mA and/or kV according to patient size, and/or use of iterative reconstruction technique. FINDINGS: NASOPHARYNX: Unremarkable. SUPRAHYOID NECK: Unremarkable oropharynx, oral cavity, parapharyngeal space and retropharyngeal space. INFRAHYOID NECK: Unremarkable larynx, hypopharynx, and supraglottic space. Vocal cords intact. MASS: None. GLANDS: Two separate stones are seen in the right submandibular duct. The largest is seen anteriorly measuring 4 x 8 mm. The 2nd is seen more proximally in measuring 3 mm. Normal size thyroid gland, without nodule. LYMPH NODES: Mildly enlarged cervical lymph nodes CERVICAL SPINE: No fracture or focal lesion. OTHER FINDINGS: None. IMPRESSION: Two separate stones are seen in the right submandibular duct. The largest is seen anteriorly measuring 4 x 8 mm. The 2nd is seen more proximally in measuring 3 mm.
[2018-07-12] MEDS: Oxymetazoline 0.05% Nasal Spray (30 ml) NS SCH (16:09)
[2018-07-12] MEDS: Sodium Chloride 0.45% 1,000 ML IV SCH (20:46)
[2018-07-12 22:30] VITALS: TEMP 98.6
--- NOTE | 2018-07-12 22:41 | CON ---
DATE: 07/12/2018 HISTORY: The patient is a 58-year-old male, who is status post PTCA and stent earlier this year. He suffers from hypertension. He presented with shortness of breath and chest pain, was found to have a hemoglobin of 4. He has had multiple nosebleeds. He was recently using cocaine. No dark stools noted. Social history and review of systems were not obtainable as the patient was actively bleeding from his nose. PHYSICAL EXAMINATION: Blood pressure is 132/60, the heart rate is 100. Neck: Negative JVD. Lungs: Without rales. Heart: Reveal S1 and S2. Extremities: Without edema. Hemoglobin is 4.5. Chemistries: BUN and creatinine, unremarkable. Troponin is negative x1. IMPRESSION 1. Marked anemia secondary to chronic nose bleed and acute bleed now. 2. Stable angina. 3. Coronary artery disease. 4. History of percutaneous transluminal coronary angioplasty and stent. 5. History of drug abuse with admitted cocaine abuse. 6. History of hypercholesterolemia and hypertension. Given these findings, we will DC his Plavix. The patient will need blood transfusions. We will need to pack his nose. Deni Shay MD
[2018-07-12 23:21] VITALS: O2SAT 98
[2018-07-13] MEDS: Oxymetazoline 0.05% Nasal Spray (30 ml) NS SCH ×2 (02:02→12:15)
[2018-07-13 06:54] LABS: MEAN CELL VOLUME 77.4 fl (80.0-105.0); MEAN CORPUSCULAR HEMOGLOBIN 24.3 pg (25.0-35.0); MEAN CORPUSCULAR HGB CONC 31.3 g/dl (31.0-37.0); MEAN PLATELET VOLUME 10.8 fl (7.0-11.0); RBC 4.12 10^6/uL (3.5-6.1); RED CELL DISTRIBUTION WIDTH 18.4 % (11.5-14.5); WHITE BLOOD COUNT 5.9 10^3/ul (4.5-11.0)
[2018-07-13 07:20] LABS: ALB/GLOB RATIO 0.7 (1.1-1.8); ALBUMIN 3.5 g/dL (3.0-4.8); ALT/SGPT 27 U/L (7-56); AST/SGOT 50 U/L (17-59); BLOOD UREA NITROGEN 12 mg/dL (7-21); CALCIUM 8.5 mg/dL (8.4-10.5); GFR NON-AFRICAN AMERICAN > 60
[2018-07-13] MEDS: Metoprolol Succinate 25 mg XL Tab PO SCH (09:51)
[2018-07-13 12:06] VITALS: BP 136/93; PULSE 81; RESP 18
--- NOTE | 2018-07-13 15:52 | CP.PCM.DIS ---
<Jaret Wilkinson - Last Filed: 07/13/18 15:49> Provider - Provider Date of Admission: 07/11/18 20:39 Attending physician: Poncho Caruso DO Primary care physician: NO PRIMARY CARE PROVIDER Consults: Dr. Jaspal Marion Time Spent in preparation of Discharge (in minutes): 45 Hospital Course - Lab Results Lab Results: Most Recent Lab Values WBC 5.9 10^3/ul (4.5-11.0) 07/13/18 05:30 RBC 4.12 10^6/uL (3.5-6.1) 07/13/18 05:30 Hgb 10.0 g/dL (14.0-18.0) L D 07/13/18 05:30 Hct 31.9 % (42.0-52.0) L 07/13/18 05:30 MCV 77.4 fl (80.0-105.0) L 07/13/18 05:30 MCH 24.3 pg (25.0-35.0) L 07/13/18 05:30 MCHC 31.3 g/dl (31.0-37.0) 07/13/18 05:30 RDW 18.4 % (11.5-14.5) H 07/13/18 05:30 Plt Count 182 10^3/uL (120.0-450.0) 07/13/18 05:30 MPV 10.8 fl (7.0-11.0) 07/13/18 05:30 Gran % 64.0 % (50.0-68.0) 07/11/18 19:59 Lymph % (Auto) 29.5 % (22.0-35.0) 07/11/18 19:59 Graves % (Auto) 4.9 % (1.0-6.0) 07/11/18 19:59 Eos % (Auto) 1.2 % (1.5-5.0) L 07/11/18 19:59 Baso % (Auto) 0.4 % (0.0-3.0) 07/11/18 19:59 Gran # 3.62 (1.4-6.5) 07/11/18 19:59 Lymph # (Auto) 1.7 (1.2-3.4) 07/11/18 19:59 Graves # (Auto) 0.3 (0.1-0.6) 07/11/18 19:59 Eos # (Auto) 0.1 (0.0-0.7) 07/11/18 19:59 Baso # (Auto) 0.02 K/mm3 (0.0-2.0) 07/11/18 19:59 Sodium 140 mmol/L (132-148) 07/13/18 05:30 Potassium 3.8 mmol/L (3.6-5.0) 07/13/18 05:30 Chloride 112 mmol/L (98-107) H 07/13/18 05:30 Carbon Dioxide 22 mmol/L (21-33) 07/13/18 05:30 Anion Gap 9 (10-20) L 07/13/18 05:30 BUN 12 mg/dL (7-21) 07/13/18 05:30 Creatinine 1.1 mg/dl (0.8-1.5) 07/13/18 05:30 Est GFR ( Amer) > 60 07/13/18 05:30 Est GFR (Non-Af Amer) > 60 07/13/18 05:30 Random Glucose 100 mg/dL (70-110) 07/13/18 05:30 Calcium 8.5 mg/dL (8.4-10.5) 07/13/18 05:30 Magnesium 1.9 mg/dL (1.7-2.2) 07/11/18 19:59 Total Bilirubin 0.3 mg/dL (0.2-1.3) 07/13/18 05:30 AST 50 U/L (17-59) 07/13/18 05:30 ALT 27 U/L (7-56) 07/13/18 05:30 Alkaline Phosphatase 111 U/L (38-126) 07/13/18 05:30 Troponin I < 0.01 ng/mL 07/12/18 11:00 NT-Pro-B Natriuret Pep 39.4 pg/mL (0-450) 07/11/18 19:59 Total Protein 8.3 g/dL (5.8-8.3) 07/13/18 05:30 Albumin 3.5 g/dL (3.0-4.8) 07/13/18 05:30 Globulin 4.8 gm/dL 07/13/18 05:30 Albumin/Globulin Ratio 0.7 (1.1-1.8) L 07/13/18 05:30 Blood Type A POSITIVE 07/11/18 21:00 Antibody Screen Negative 07/11/18 21:00 Crossmatch See Detail 07/11/18 21:00 BBK History Checked Patient has bt 07/11/18 21:00 - Hospital Course Hospital Course: Upon Admission Pt is a 58yo male with a PMH of CAD s/p 5 stents, CKD, anemia, HTN and CVA presented to the ED complaining of chest pain x 1 week. Pain described as a tightness in his chest with associated dyspnea on exertion. Pt had exacerbation of chest pain and SOB with associated lightheaded while ambulating.Pt denied any other associated somatic sxs. Pt admits to using crack cocaine day prior to admission with improvement of sxs. Hospital Course Patient is a 58yo male with a PMH of CAD s/p 5 stents, CKD, anemia, HTN and CVA on clopidogrel, metoprolol and asprin at home. He was admitted for r/o of ACS and severe acute on chronic micorcytic iron deficient anemia 2/2 blood loss from multiple prolonged nose bleeds. Upon admission the patient described heavy nose bleeds last up to an hour every day that were difficult to stop, that have been going on for multiple months. Nose bleeds are most likely due to snorting cocaine regularly in the past, from which he has a hole in his nasal septum (pt states he currently only smokes crack cocaine and does not snort it anymore). Hbg on admission was 4.5 and potassium was 3.1. Pt was mildly tachycardic with HR >100 with BP 139/75. Pt was transfused 5 units of PRBC and Hbg responded appropriately. Hbg on day of discharge was 10 which has been pts baseline for past several months. K+ on discharge was 3.8. Cardiology was consulted as pt has significant cardiac hx and chest pain. Cardiology discontinued clopidogrel because of pts hx of severe epistaxis. Troponins trended and negative x 2. EKG showed NSR with rate 89 and no evidence of a STEMI. Pts home medications were continued; Lipitor, Norvasc, Protonix. Metoprolol should be discontinued as pt has recent hx fo cocaine use. Pt should follow up with defective cigarette slitter Dr. Shay. Pt also got a CT of neck for right chronic sialadenitis. CT of the neck w/o contrast was preformed. Two stones were found int he sub-mandibular duct. The largest measuring 4 x 8 mm, the other 3mm. Pt understands he should f/u with ENT as an outpatient to mange this problem. Pt educated on cocaine cessation and dangers of using cocaine if he persists. Pt also educated on packing nose if another episode of epistaxis occurs. Discharge Plan Patient stable for discharge to home as per Dr. Garner. Patient is to f/u with defective cigarette slitter, Dr. Shay for management of prior NH with stents and ENT for management of his sialidnitis 2/2 to salivary stones in the sub-mandibular gland after discharge from ambulatory clinic. Patient should continue all home medications as described in the discharge instructions. Patient will stop taking plavix and his Metorpolol until he follows up with Dr. Shay due to bleeding and cocaine use respectively. Pt should return to the hospital if symptoms recur or worsen, or if patient experiences chest pain, SOB, syncope. Patient understands plan as above and agrees. Disclaimer: Written above is a synopsis of the patient's current hospital admission. For full report refer to EMR Discharge Exam - Head Exam Head Exam: ATRAUMATIC, NORMAL INSPECTION - Eye Exam Eye Exam: EOMI, Normal appearance. absent: Nystagmus, Scleral icterus - Respiratory Exam Respiratory Exam: NORMAL BREATHING PATTERN. absent: Rales, Rhonchi, Wheezes, Respiratory Distress - Cardiovascular Exam Cardiovascular Exam: REGULAR RHYTHM, +S1, +S2. absent: Tachycardia - GI/Abdominal Exam GI & Abdominal Exam: Normal Bowel Sounds, Soft. absent: Diminished Bowel Sounds, Distended, Firm, Guarding, Tenderness - Extremities Exam Extremities exam: normal inspection - Neurological Exam Neurological exam: Alert, Normal Gait, Oriented x3 - Psychiatric Exam Psychiatric exam: Normal Affect, Normal Mood - Skin Skin Exam: Intact, Normal Color Discharge Plan - Follow Up Plan Condition: GOOD Disposition: HOME/ ROUTINE Instructions: Heart Healthy Diet, Chest Pain, Cocaine Use Disorder, Anemia of Chronic Disease (DC) Additional Instructions: 1. Patient is stable for discharge to home as per Dr. Garner 2. Patient must followup with Dr. Marion within 3-7 days of discharge from hospital for stones noted in Soft Tissue Neck CT imaging. Patient must followup with Dr. Shay within 3-7 days of discharge from hospital for possible restarting of Plavix 75mg. Patient may require restarting of his beta terrance and plavix that is why it is imperative that he follows up with Dr. Shay. B-terrance will be held as patient continues to use cocaine until he follows up outpatient and listens to Dr. Shay's recommendations. 3. Patient will resume all of his home medications except the following due to increased bleeding risk 2/2 nose bleed 2/2 to crack cocaine snorting: Plavix 75mg and Metoprolol 25mg po daily. 4. Patient understands the plan as above and agrees. 5. Patient should return to hospital if symptoms worsen or recur. Referrals: French Marion DO [Staff Provider] - Deni Shay MD [Staff Provider] - <PatsyAnikavanesa - Last Filed: 07/14/18 15:48> Provider - Provider Date of Admission: 07/11/18 20:39 Attending physician: Poncho Caruso DO Primary care physician: NO PRIMARY CARE PROVIDER Hospital Course - Lab Results Lab Results: Most Recent Lab Values WBC 5.9 10^3/ul (4.5-11.0) 07/13/18 05:30 RBC 4.12 10^6/uL (3.5-6.1) 07/13/18 05:30 Hgb 10.0 g/dL (14.0-18.0) L D 07/13/18 05:30 Hct 31.9 % (42.0-52.0) L 07/13/18 05:30 MCV 77.4 fl (80.0-105.0) L 07/13/18 05:30 MCH 24.3 pg (25.0-35.0) L 07/13/18 05:30 MCHC 31.3 g/dl (31.0-37.0) 07/13/18 05:30 RDW 18.4 % (11.5-14.5) H 07/13/18 05:30 Plt Count 182 10^3/uL (120.0-450.0) 07/13/18 05:30 MPV 10.8 fl (7.0-11.0) 07/13/18 05:30 Gran % 64.0 % (50.0-68.0) 07/11/18 19:59 Lymph % (Auto) 29.5 % (22.0-35.0) 07/11/18 19:59 Graves % (Auto) 4.9 % (1.0-6.0) 07/11/18 19:59 Eos % (Auto) 1.2 % (1.5-5.0) L 07/11/18 19:59 Baso % (Auto) 0.4 % (0.0-3.0) 07/11/18 19:59 Gran # 3.62 (1.4-6.5) 07/11/18 19:59 Lymph # (Auto) 1.7 (1.2-3.4) 07/11/18 19:59 Graves # (Auto) 0.3 (0.1-0.6) 07/11/18 19:59 Eos # (Auto) 0.1 (0.0-0.7) 07/11/18 19:59 Baso # (Auto) 0.02 K/mm3 (0.0-2.0) 07/11/18 19:59 Sodium 140 mmol/L (132-148) 07/13/18 05:30 Potassium 3.8 mmol/L (3.6-5.0) 07/13/18 05:30 Chloride 112 mmol/L (98-107) H 07/13/18 05:30 Carbon Dioxide 22 mmol/L (21-33) 07/13/18 05:30 Anion Gap 9 (10-20) L 07/13/18 05:30 BUN 12 mg/dL (7-21) 07/13/18 05:30 Creatinine 1.1 mg/dl (0.8-1.5) 07/13/18 05:30 Est GFR ( Amer) > 60 07/13/18 05:30 Est GFR (Non-Af Amer) > 60 07/13/18 05:30 Random Glucose 100 mg/dL (70-110) 07/13/18 05:30 Calcium 8.5 mg/dL (8.4-10.5) 07/13/18 05:30 Magnesium 1.9 mg/dL (1.7-2.2) 07/11/18 19:59 Total Bilirubin 0.3 mg/dL (0.2-1.3) 07/13/18 05:30 AST 50 U/L (17-59) 07/13/18 05:30 ALT 27 U/L (7-56) 07/13/18 05:30 Alkaline Phosphatase 111 U/L (38-126) 07/13/18 05:30 Troponin I < 0.01 ng/mL 07/12/18 11:00 NT-Pro-B Natriuret Pep 39.4 pg/mL (0-450) 07/11/18 19:59 Total Protein 8.3 g/dL (5.8-8.3) 07/13/18 05:30 Albumin 3.5 g/dL (3.0-4.8) 07/13/18 05:30 Globulin 4.8 gm/dL 07/13/18 05:30 Albumin/Globulin Ratio 0.7 (1.1-1.8) L 07/13/18 05:30 Blood Type A POSITIVE 07/11/18 21:00 Antibody Screen Negative 07/11/18 21:00 Crossmatch See Detail 07/11/18 21:00 BBK History Checked Patient has bt 07/11/18 21:00 Attending/Attestation - Attestation I have personally seen and examined this patient.: Yes I have fully participated in the care of the patient.: Yes I have reviewed all pertinent clinical information, including history, physical exam and plan: Yes Notes (Text): 07/14/18 15:42 Medical record note made by the resident after discussion with my direction and input after the patient was personally seen and examined by me. I have reviewed the chart and agree that the record accurately reflects by personal performance of the history, physical exam, data review, and medical decision-making, in the course for the patient. I have also personally directed the plan of care. 58yo male with a PMH of CAD s/p 5 stents, CKD, anemia, HTN and CVA and coacian abuse ( on clopidogrel, and asprin )was admitted with symptometic anemia. Hemoglobin was 4.5 Upon admission the patient described heavy nose bleeds last up to an hour every day that were difficult to stop, that have been going on for multiple months. Nose bleeds are most likely due to snorting cocaine regularly in the past, from which he has a hole in his nasal septum (pt states he currently only smokes crack cocaine and does not snort it anymore). . Pt was transfused 5 units of PRBC and Hbg responded appropriately. Hemoglobin on day of discharge was 10 which has been pts baseline for past several months. GI work for evaluation of anemia EGD and Colonoscopy on 04/07/18 were unremarkable. . Cardiology was consulted as pt has significant cardiac hx and chest pain. Cardiology discontinued clopidogrel because of patient hx of severe epistaxis. Troponins trended and negative x 2. EKG showed NSR with rate 89 and no evidence of a STEMI. Pts home medications were continued; Lipitor, Norvasc, Protonix. Metoprolol should be discontinued as pt has recent hx fo cocaine use. Pt should follow up with defective cigarette slitter Dr. Shay. Pt also got a CT of neck for right chronic sialadenitis. CT of the neck w/o contrast was preformed. Two stones were found int he sub-mandibular duct. The largest measuring 4 x 8 mm, the other 3mm. Pt understands he should f/u with ENT as an outpatient . Pt educated on cocaine cessation and dangers of using cocaine if he persists. Patient is not having any epistaxis at the time of discharge. Prognosis is guarded due to ongoing drug abuse. Management plan was discussed in detail with patient. Education was provided. 07/14/18 15:43
--- NOTE | 2018-07-13 19:56 | PN ---
DATE: 07/13/2018 FOLLOWUP SUBJECTIVE: The patient denies chest pain. PHYSICAL EXAMINATION: VITAL SIGNS: Blood pressure 132/79, heart rate 95, temperature 98.6, and respirations 18. HEENT: Pale conjunctivae. CHEST: Clear. HEART: S1 and S2, regular. EXTREMITIES: No edema. LABORATORY DATA: Today's hemoglobin and hematocrit 10 and 31.9. Today's SMA-7 is within normal limits except for chloride of 112, anion gap of 9. Soft tissue neck CT scan, two separate stones seen in the right submandibular duct, the largest is measuring 4 x 8 mm, the second is measuring 3 mm in diameter. EKG revealed sinus rhythm, minimal voltage criteria for LVH. ASSESSMENT: 1. Severe anemia requiring packed red blood cell transfusion. 2. Coronary artery disease, status post coronary artery stenting. 3. History of cocaine abuse. 4. Hypertension. 5. Hyperlipidemia. 6. Improved hypokalemia. RECOMMENDATIONS: Continue current Lipitor 40 mg once a day, Norvasc 5 mg once a day, Toprol XL 25 mg once a day. The patient can be discharged on aspirin 81 mg once a day as per Dr. Shay's recommendation and follow up with Dr. Shay as an outpatient. Ze Cruz MD
== END 2018-07-13 17:20 | disposition home or self-care (01) | DRG 812 ==
LOC: ED 17:35 → ERH 20:39 → 2RSO 23:06
PROVIDERS: ADMIT Family Medicine; ATTEND Family Medicine
PROC: 30233N1 Transfusion of Nonautologous Red Blood Cells into Peripheral Vein, Percutaneous Approach (ICD-10-PCS; principal; 2018-07-11)
DX: D50.9 Iron deficiency anemia, unspecified (principal); I12.9 Hypertensive chronic kidney disease with stage 1 through stage 4 chronic kidney disease, or unspecified chronic kidney disease; N18.9 Chronic kidney disease, unspecified; F14.10 Cocaine abuse, uncomplicated; E87.6 Hypokalemia; I25.118 Atherosclerotic heart disease of native coronary artery with other forms of angina pectoris; R04.0 Epistaxis; K11.23 Chronic sialoadenitis; E78.00 Pure hypercholesterolemia, unspecified; K62.1 Rectal polyp; K64.8 Other hemorrhoids; F17.210 Nicotine dependence, cigarettes, uncomplicated; E78.5 Hyperlipidemia, unspecified; K29.70 Gastritis, unspecified, without bleeding; Z79.82 Long term (current) use of aspirin; Z79.02 Long term (current) use of antithrombotics/antiplatelets; Z95.5 Presence of coronary angioplasty implant and graft; Z86.73 Personal history of transient ischemic attack (TIA), and cerebral infarction without residual deficits

== ENCOUNTER 2018-07-27 13:12 | Emergency (ER) | payer BC ==
[2018-07-27 13:12] VITALS: BMI 28.2
[2018-07-27 13:24] VITALS: TEMP 98.3
--- NOTE | 2018-07-27 13:39 | ED PDOC ---
Arrival/HPI - General Chief Complaint: Chest Pain Time Seen by Provider: 07/27/18 13:14 Historian: Patient - History of Present Illness Narrative History of Present Illness (Text): 07/27/18 13:37 58 year old male, whose past medical history includes CAD s/p stents, CKD, anemia, hypertension and CVA, presents to the Emergency Department complaining of left sided chest discomfort when cough or with any movement for the past 3 da ys. Patient reports the pain radiates to the arm. He denies taking any pain medication, but reports using a head pad with minimal relief. Patient is complaint with his medication of Aspirin and Lipitor. Patient denies any fever, chills, shortness of breath, nausea, vomiting, diarrhea, urinary symptoms, back pain, neck pain, headache, dizziness, or any other complaints. PMD: Dr. Hartley/ Dr. Caruso Plasterer Foreman: Dr. Shay Time/Duration: Other (3 days) Symptom Onset: Gradual Symptom Course: Unchanged Activities at Onset: Light Context: Home Past Medical History - Provider Review Nursing Documentation Reviewed: Yes - Infectious Disease Hx of Infectious Diseases: None - Cardiac Hx Cardiac Disorders: Yes Hx Hypertension: Yes - Pulmonary Hx Respiratory Disorders: No Other/Comment: quit 1 year ago - Neurological HX Cerebrovascular Accident: Yes - Renal Hx Renal Disorder: Yes - Endocrine/Metabolic Hx Endocrine Disorders: No - Hematological/Oncological Hx Blood Transfusions: No - Musculoskeletal/Rheumatological Hx Musculoskeletal Disorders: Yes Hx Arthritis: Yes Hx Falls: Yes - Psychiatric Hx Emotional Abuse: No Hx Physical Abuse: No Hx Substance Use: No - Surgical History Hx Cardiac Catheterization: Yes Hx Coronary Stent: Yes (x5) - Anesthesia Hx Anesthesia Reactions: Yes ("I WAS OVERSEDATED") Hx Malignant Hyperthermia: No - Suicidal Assessment Feels Threatened In Home Enviroment: No Family/Social History - Physician Review Nursing Documentation Reviewed: Yes Family/Social History: No Known Family HX Smoking Status: Current Some Days Smoker Hx Alcohol Use: No Hx Substance Use: No Allergies/Home Meds Allergies/Adverse Reactions: Allergies Iodinated Contrast- Oral and IV Dye Allergy (Verified 04/03/18 20:51) ANAPHYLAXIS shrimp Allergy (Verified 04/03/18 20:50) RASH Review of Systems - Physician Review All systems were reviewed & negative as marked: Yes - Review of Systems Constitutional: absent: Fevers, Other (Chills) Respiratory: Cough. absent: SOB Cardiovascular: Chest Pain Gastrointestinal: absent: Diarrhea, Nausea Genitourinary Male: absent: Dysuria, Frequency, Hematuria Musculoskeletal: absent: Back Pain, Neck Pain Neurological: absent: Headache, Dizziness Physical Exam Vital Signs Temp Pulse Resp BP Pulse Ox 07/27/18 13:23 98.3 F 88 17 145/84 98 Temperature: Afebrile Blood Pressure: Normal Pulse: Regular Respiratory Rate: Normal Appearance: Positive for: Well-Appearing, Non-Toxic, Comfortable Pain Distress: None Mental Status: Positive for: Alert and Oriented X 3 - Systems Exam Head: Present: Atraumatic, Normocephalic Pupils: Present: PERRL Extroacular Muscles: Present: EOMI Conjunctiva: Present: Normal Mouth: Present: Moist Mucous Membranes, Other (Poor dentition ) Neck: Present: Normal Range of Motion Respiratory/Chest: Present: Clear to Auscultation, Good Air Exchange, Tender to Palpation (point tenderness to the left anterior chest wall). No: Respiratory Distress, Accessory Muscle Use Cardiovascular: Present: Regular Rate and Rhythm, Normal S1, S2. No: Murmurs Abdomen: No: Tenderness, Distention, Peritoneal Signs Back: Present: Normal Inspection Upper Extremity: Present: Normal Inspection. No: Cyanosis, Edema Lower Extremity: Present: Normal Inspection. No: Edema Neurological: Present: GCS=15, CN II-XII Intact, Speech Normal Skin: Present: Warm, Dry, Normal Color. No: Rashes Psychiatric: Present: Alert, Oriented x 3, Normal Insight, Normal Concentration Medical Decision Making ED Course and Treatment: 07/27/18 13:38 Impression: 58 year old male presents complaining of chest discomfort when coughing or with any movement for the past 3 days. Plan: -- EKG -- Labs -- Chest X-ray -- Toradol -- Reassess and disposition Prior Visits: Notes and results from previous visits were reviewed. Patient was last seen in the emergency department on 07/11/18 presents complaining of chest pain for the past week. Patient Progress Notes: 07/27/18 13:51 EKG shows Sinus at 85 BPM with normal axis and intervals. Interpreted by me. PROCEDURE: Chest X-ray Dictator : Go Grewal MD Report Date : 07/27/2018 14:00:41 IMPRESSION: No active disease. 07/27/18 15:[address] Caruso who is aware and agrees with the plan. Patient is clear to go home and will followup at his office. - Lab Interpretations I have reviewed the lab results: Yes - RAD Interpretation Radiology Orders: 07/27/18 13:23 CHEST PORTABLE [RAD] Stat - EKG Interpretation Interpreted by ED Physician: Yes Type: 12 lead EKG - Scribe Statement The provider has reviewed the documentation as recorded by the Aileen Marie Provider Scribe Attestation: All medical record entries made by the Scribe were at my direction and personally dictated by me. I have reviewed the chart and agree that the record accurately reflects my personal performance of the history, physical exam, medical decision making, and the department course for this patient. I have also personally directed, reviewed, and agree with the discharge instructions and disposition. Disposition/Present on Arrival - Present on Arrival Any Indicators Present on Arrival: No History of DVT/PE: No History of Uncontrolled Diabetes: No Urinary Catheter: No History Surgical Site Infection Following: None - Disposition Have Diagnosis and Disposition been Completed?: Yes Diagnosis: Musculoskeletal pain Disposition: HOME/ ROUTINE Disposition Time: 15:20 Condition: GOOD Discharge Instructions (ExitCare): Muscle and Bone Pain (DC) Additional Instructions: BARBARA NEWELL, thank you for letting us take care of you today. The emergency medical care you received today was directed at your acute symptoms. If you were prescribed any medication, please fill it and take as directed. It may take several days for your symptoms to resolve. Return to the Emergency Department if your symptoms worsen, do not improve, or if you have any other problems. Please contact your doctor or call one of the physicians/clinics you have been referred to that are listed on the Patient Visit Information form that is included in your discharge packet. Bring any paperwork you were given at discharge with you along with any medications you are taking to your follow up visit. Our treatment cannot replace ongoing medical care by a primary care provider outside of the emergency department. Thank you for allowing the [facility] team to be part of your care today. Follow up with Dr. Caruso in 2-3 days for re-evaluation and further management. Prescriptions: Ibuprofen [Motrin] 600 mg PO Q6 PRN #20 tab PRN Reason: Pain, Moderate (4-7) Referrals: Poncho Caruso DO [Staff Provider] - Follow up with primary Forms: [employer] (Greek)
--- NOTE | 2018-07-27 14:04 | RAD ---
Date of service: 07/27/2018 HISTORY: chest pain COMPARISON: 07/11/2018 FINDINGS: LUNGS: No active pulmonary disease. PLEURA: No significant pleural effusion identified, no pneumothorax apparent. CARDIOVASCULAR: Minimal aortic calcification Mild cardiomegaly no pulmonary vascular congestion. OSSEOUS STRUCTURES: No significant abnormalities. VISUALIZED UPPER ABDOMEN: Normal. OTHER FINDINGS: None. IMPRESSION: No active disease.
[2018-07-27 14:32] LABS: BASO # 0.02 K/mm3 (0.0-2.0); BASO % 0.4 % (0.0-3.0); EOS # 0.2 (0.0-0.7); EOS % 3.4 % (1.5-5.0); GRAN # 2.58 (1.4-6.5); GRAN % 51.3 % (50.0-68.0); HEMOGLOBIN 9.7 g/dL (14.0-18.0); LYMPH # 1.8 (1.2-3.4); LYMPH % 35.4 % (22.0-35.0); MEAN CELL VOLUME 79.1 fl (80.0-105.0); MEAN CORPUSCULAR HEMOGLOBIN 24.4 pg (25.0-35.0); MEAN CORPUSCULAR HGB CONC 30.9 g/dl (31.0-37.0); MONO # 0.5 (0.1-0.6); MONO % 9.5 % (1.0-6.0); PLATELET COUNT 178 10^3/uL (120.0-450.0); RBC 3.97 10^6/uL (3.5-6.1); RED CELL DISTRIBUTION WIDTH 20.4 % (11.5-14.5)
[2018-07-27 15:00] LABS: INR 1.09; PARTIAL THROMBOPLASTIN TIME 26.8 Seconds (25.1-36.5); PROTHROMBIN TIME 12.5 SECONDS (9.4-12.5)
--- NOTE | 2018-07-27 15:14 | CARD ---
APPROVED REPORT Date of service: 07/27/2018 EKG Measurement Heart [id number] <Conclusion> Normal sinus rhythm Normal ECG
[2018-07-27 15:18] LABS: TROPONIN I < 0.01 ng/mL
[2018-07-27 15:24] LABS: ALB/GLOB RATIO 0.8 (1.1-1.8); ALBUMIN 3.7 g/dL (3.0-4.8); ALT/SGPT 18 U/L (7-56); AST/SGOT 31 U/L (17-59); BLOOD UREA NITROGEN 17 mg/dL (7-21); CALCIUM 8.9 mg/dL (8.4-10.5); GFR NON-AFRICAN AMERICAN > 60
[2018-07-27 15:52] VITALS: BP 140/91; PULSE 80; RESP 16; O2SAT 97
== END 2018-07-27 15:52 | disposition home or self-care (01) ==
LOC: ED 13:12
DX: M79.18 Myalgia, other site (principal); I12.9 Hypertensive chronic kidney disease with stage 1 through stage 4 chronic kidney disease, or unspecified chronic kidney disease; N18.9 Chronic kidney disease, unspecified; I25.10 Atherosclerotic heart disease of native coronary artery without angina pectoris; Z86.73 Personal history of transient ischemic attack (TIA), and cerebral infarction without residual deficits
CPT/HCPCS: 71045; 80053; 82550; 83615; 83735; 84484; 85025; 85610; 85730; 93005; 96374; 99282; J1885

== ENCOUNTER 2018-10-19 10:17 | Emergency (ER) | payer BC ==
[2018-10-19 10:26] VITALS: BMI 28.5
[2018-10-19 10:36] VITALS: RESP 18; O2SAT 95
[2018-10-19 10:59] LABS: BASO # 0.01 K/mm3 (0.0-2.0); BASO % 0.2 % (0.0-3.0); EOS # 0.2 (0.0-0.7); EOS % 2.6 % (1.5-5.0); GRAN # 3.39 (1.4-6.5); GRAN % 54.6 % (50.0-68.0); HEMOGLOBIN 9.8 g/dL (14.0-18.0); LYMPH # 2.2 (1.2-3.4); LYMPH % 34.7 % (22.0-35.0); MEAN CELL VOLUME 81.3 fl (80.0-105.0); MEAN CORPUSCULAR HEMOGLOBIN 25.1 pg (25.0-35.0); MEAN CORPUSCULAR HGB CONC 30.9 g/dl (31.0-37.0); MONO # 0.5 (0.1-0.6); MONO % 7.9 % (1.0-6.0); PLATELET COUNT 177 10^3/uL (120.0-450.0); RED CELL DISTRIBUTION WIDTH 18.2 % (11.5-14.5); WHITE BLOOD COUNT 6.2 10^3/uL (4.5-11.0)
--- NOTE | 2018-10-19 11:04 | ED PDOC ---
Arrival/HPI - General Chief Complaint: Chest Pain Time Seen by Provider: 10/19/18 10:27 Historian: Patient - History of Present Illness Narrative History of Present Illness (Text): 10/19/18 10:59 58 year old male, whose past medical history includes CAD w/ stents, CVA (residual speech deficits), hypertension, and chronic kidney disease, who presents to the emergency department complaining of left sided chest pain since this morning. Patient describes the pain as achy and worsens with movement. He notes that it feels like a muscle had been pulled, which he has experienced previously. States that a muscle relaxer has helped this symptom previously. Of note, patient has echo performed on 04/07/18 which showed an EF of 56%. He denies fevers, chills, headache, dizziness, shortness of breath, palpitations, dyspnea on exertion, cough, abdominal pain, nausea, vomiting, diarrhea, back pain, neck pain, or any other complaint. PMD: Dr. Caruso Metal Bed Assembler: Dr. Shay Time/Duration: 4-6 hours Symptom Onset: Gradual Symptom Course: Unchanged Quality: Aching Activities at Onset: Light Context: Home Past Medical History - Provider Review Nursing Documentation Reviewed: Yes - Infectious Disease Hx of Infectious Diseases: None - Cardiac Hx Cardiac Disorders: Yes Hx Hypertension: Yes Other/Comment: 5cardiac stents - Pulmonary Hx Respiratory Disorders: No Other/Comment: quit 1 year ago - Neurological HX Cerebrovascular Accident: Yes - Renal Hx Renal Disorder: Yes - Endocrine/Metabolic Hx Endocrine Disorders: No - Hematological/Oncological Hx Blood Transfusions: No - Musculoskeletal/Rheumatological Hx Musculoskeletal Disorders: Yes Hx Arthritis: Yes Hx Falls: Yes - Psychiatric Hx Emotional Abuse: No Hx Physical Abuse: No Hx Substance Use: No - Surgical History Hx Cardiac Catheterization: Yes Hx Coronary Stent: Yes (x5) - Anesthesia Hx Anesthesia Reactions: Yes ("I WAS OVERSEDATED") Hx Malignant Hyperthermia: No - Suicidal Assessment Feels Threatened In Home Enviroment: No Family/Social History - Physician Review Nursing Documentation Reviewed: Yes Family/Social History: No Known Family HX Smoking Status: Current Some Days Smoker Hx Alcohol Use: No Hx Substance Use: No Allergies/Home Meds Allergies/Adverse Reactions: Allergies Iodinated Contrast- Oral and IV Dye Allergy (Verified 04/03/18 20:51) ANAPHYLAXIS shrimp Allergy (Verified 07/09/18 20:50) RASH Review of Systems - Physician Review All systems were reviewed & negative as marked: Yes - Review of Systems Constitutional: absent: Fevers Respiratory: absent: SOB, Cough Cardiovascular: Chest Pain Gastrointestinal: absent: Abdominal Pain, Diarrhea, Nausea, Vomiting Genitourinary Male: absent: Dysuria, Frequency Musculoskeletal: absent: Back Pain, Neck Pain Neurological: absent: Headache, Dizziness Physical Exam Vital Signs Reviewed: Yes Vital Signs Temp Pulse Resp Pulse Ox 10/19/18 10:18 98 F 101 H 18 95 Temperature: Afebrile Blood Pressure: Normal Pulse: Tachycardic Respiratory Rate: Normal Appearance: Positive for: Well-Appearing, Non-Toxic, Comfortable Pain Distress: None Mental Status: Positive for: Alert and Oriented X 3 - Systems Exam Head: Present: Atraumatic, Normocephalic Pupils: Present: PERRL Extroacular Muscles: Present: EOMI Conjunctiva: Present: Normal Mouth: Present: Moist Mucous Membranes Neck: Present: Normal Range of Motion Respiratory/Chest: Present: Clear to Auscultation, Good Air Exchange, Other ( tenderness to the left bicep chest wall, worse with movement). No: Respiratory Distress, Accessory Muscle Use Cardiovascular: Present: Regular Rate and Rhythm, Normal S1, S2. No: Murmurs Abdomen: No: Tenderness, Distention, Peritoneal Signs Back: Present: Normal Inspection Upper Extremity: Present: Normal Inspection. No: Cyanosis, Edema Lower Extremity: Present: Normal Inspection. No: Edema Neurological: Present: GCS=15, CN II-XII Intact, Speech Normal Skin: Present: Warm, Dry, Normal Color. No: Rashes Psychiatric: Present: Alert, Oriented x 3, Normal Insight, Normal Concentration Medical Decision Making ED Course and Treatment: 10/19/18 11:10 Impression: 58 year old male who presents to the emergency department complaining of chest pain. Differential Diagnosis included but are not limited to: Musculoskeletal chest pain Plan: -- EKG -- LAbs -- Chest X-ray -- Aspirin -- Flexeril -- Toradol -- Reassess and disposition Prior Visits: Notes and results from previous visits were reviewed. Progress Notes: EKG reviewed, shows sinus tacchycardia at 103 bpm with PVC. 10/19/18 11:32 Chest X-ray reviewed, shows: IMPRESSION: No active disease. 10/19/18 13:12 Patient is feeling better. 10/19/18 13:20 The patient is choosing to leave instead of being admitted. I have discussed that admission would be beneficial for him but he states that this pain is muscular so he would rather just go home with medications. The patient is alert, oriented, and shows the mental capacity to make clear decisions regarding the patients health care at this time. The patient continues to wish to leave against medical advice. Follow-up has been arranged and the patient is aware of the importance to following up as instructed. The patient has been advised that they should return to the emergency room immediately if they change their mind at any time, or if their condition begins to change or worsen in any way. He will f/u with his PMD Dr. Caruso and Dr. Shay Cardiology as soon as possible. - Lab Interpretations I have reviewed the lab results: Yes - RAD Interpretation Radiology Orders: 10/19/18 10:45 CHEST PORTABLE [RAD] Stat - EKG Interpretation Interpreted by ED Physician: Yes Type: 12 lead EKG - Medication Orders Current Medication Orders: Discontinued Medications Aspirin (Aspirin Chewable) 162 mg PO STAT STA Stop: 10/19/18 10:46 Cyclobenzaprine HCl (Flexeril) 10 mg PO STAT STA Stop: 10/19/18 10:47 Ketorolac Tromethamine (Toradol) 30 mg IVP STAT STA Stop: 10/19/18 10:47 - Scribe Statement The provider has reviewed the documentation as recorded by the Scribe Jacque Velazquez Provider Scribe Attestation: All medical record entries made by the Scribe were at my direction and personally dictated by me. I have reviewed the chart and agree that the record accurately reflects my personal performance of the history, physical exam, medical decision making, and the department course for this patient. I have also personally directed, reviewed, and agree with the discharge instructions and disposition. Disposition/Present on Arrival - Present on Arrival Any Indicators Present on Arrival: No History of DVT/PE: No History of Uncontrolled Diabetes: No Urinary Catheter: No History of Decub. Ulcer: No History Surgical Site Infection Following: None - Disposition Have Diagnosis and Disposition been Completed?: Yes Diagnosis: Chest wall pain Disposition: HOME/ ROUTINE Disposition Time: 13:12 Patient Plan: Discharge Condition: IMPROVED Discharge Instructions (ExitCare): Chest Pain (ED) Additional Instructions: BARBARA NEWELL, thank you for letting us take care of you today. Your provider was Benja Long DO and you were treated for Chest pain. The emergency medical care you received today was directed at your acute symptoms. If you were prescribed any medication, please fill it and take as directed. It may take several days for your symptoms to resolve. Return to the Emergency Department if your symptoms worsen, do not improve, or if you have any other problems. Please contact your doctor or call one of the physicians/clinics you have been referred to that are listed on the Patient Visit Information form that is included in your discharge packet. Bring any paperwork you were given at discharge with you along with any medications you are taking to your follow up visit. Our treatment cannot replace ongoing medical care by a primary care provider outside of the emergency department. Thank you for allowing the [facility] team to be part of your care today. If you had an X-Ray or CT scan: A Radiologist will review the ED reading if any change in treatment is needed we will contact you. If you had a blood, urine, or wound culture: It will take several days for the results, if any change in treatment is needed we will contact you. If you had an STI test: It will take 48 hours for the results. Please call after 1 week if you have not heard back. Prescriptions: Cyclobenzaprine [Flexeril] 5 mg PO TID PRN #20 tab PRN Reason: Muscle Spasm Ibuprofen [Motrin] 600 mg PO Q6 PRN #30 tab PRN Reason: Pain, Moderate (4-7) Referrals: Poncho Caruso DO [Staff Provider] - Follow up with primary Deni Shay MD [Staff Provider] - Follow up with primary Forms: [employer] (Chinese), WORK NOTE
[2018-10-19 11:07] LABS: ALB/GLOB RATIO 0.7 (1.1-1.8); ALBUMIN 3.9 g/dL (3.0-4.8); ALT/SGPT 39 U/L (7-56); AST/SGOT 45 U/L (17-59); BLOOD UREA NITROGEN 12 mg/dL (7-21); CALCIUM 9.1 mg/dL (8.4-10.5); GFR NON-AFRICAN AMERICAN > 60
[2018-10-19] MEDS ORDERED: Potassium Chloride 20 mEq ER Tab PO STA (11:14)
[2018-10-19 11:17] LABS: TROPONIN I < 0.01 ng/mL
--- NOTE | 2018-10-19 11:30 | RAD ---
Date of service: 10/19/2018 HISTORY: chest pain COMPARISON: 07/27/2018 FINDINGS: LUNGS: No active pulmonary disease. PLEURA: No significant pleural effusion identified, no pneumothorax apparent. CARDIOVASCULAR: No aortic atherosclerotic calcification present. Normal cardiac size. No pulmonary vascular congestion. OSSEOUS STRUCTURES: No significant abnormalities. VISUALIZED UPPER ABDOMEN: Normal. OTHER FINDINGS: None. IMPRESSION: No active disease.
[2018-10-19 13:34] VITALS: BP 140/80; PULSE 106; TEMP 98.6
--- NOTE | 2018-10-19 23:02 | CARD ---
APPROVED REPORT Date of service: 10/19/2018 EKG Measurement Heart [id number] <Conclusion> Sinus tachycardia with occasional premature ventricular complexes Otherwise normal ECG
== END 2018-10-19 14:00 | disposition home or self-care (01) ==
LOC: ED 10:17
DX: R07.89 Other chest pain (principal); I25.10 Atherosclerotic heart disease of native coronary artery without angina pectoris; I12.9 Hypertensive chronic kidney disease with stage 1 through stage 4 chronic kidney disease, or unspecified chronic kidney disease; N18.9 Chronic kidney disease, unspecified; Z86.73 Personal history of transient ischemic attack (TIA), and cerebral infarction without residual deficits
CPT/HCPCS: 71045; 80053; 82550; 83615; 83735; 84484; 85025; 93005; 96374; 99283; J1885

== ENCOUNTER 2018-12-18 06:32 | Outpatient (CLI) | payer BC | END 2018-12-18 06:33 | disposition home or self-care (01) | LOC: CARDIO 06:32 ==

== ENCOUNTER 2019-01-02 06:17 | Day surgery (SDC) | payer BC ==
[2018-12-19 08:53] VITALS: BMI 29.5
[2019-01-02 07:10] LABS: BASO # 0.02 K/mm3 (0.0-2.0); BASO % 0.4 % (0.0-3.0); EOS # 0.1 (0.0-0.7); HEMOGLOBIN 10.1 g/dL (14.0-18.0); LYMPH # 2.2 (1.2-3.4); LYMPH % 43.6 % (22.0-35.0); MEAN CELL VOLUME 79.3 fl (80.0-105.0); MEAN CORPUSCULAR HEMOGLOBIN 24.3 pg (25.0-35.0); MEAN CORPUSCULAR HGB CONC 30.6 g/dl (31.0-37.0); MONO # 0.3 (0.1-0.6); MONO % 6.5 % (1.0-6.0); RBC 4.16 10^6/uL (3.5-6.1); WHITE BLOOD COUNT 5.1 10^3/uL (4.5-11.0)
[2019-01-02 07:16] LABS: BLOOD UREA NITROGEN 12 mg/dL (7-21); CALCIUM 8.7 mg/dL (8.4-10.5); GFR NON-AFRICAN AMERICAN 52
[2019-01-02 07:18] LABS: INR 1.19; PARTIAL THROMBOPLASTIN TIME 33.7 Seconds (26.9-38.3); PROTHROMBIN TIME 13.4 SECONDS (9.4-12.5)
[2019-01-02 07:21] VITALS: O2SAT 99
[2019-01-02] MEDS ORDERED: DiphenhydrAMINE 50 mg/ml Inj ONE (08:17)
[2019-01-02] MEDS ORDERED: Famotidine 20mg/50ml 20 MG/50 ML BAG IVPB ONE (08:17)
[2019-01-02] MEDS ORDERED: Potassium Chloride 20 mEq ER Tab PO ONE (08:23)
[2019-01-02] MEDS ORDERED: Iohexol 350mgl/ml 50 ML ONE (09:06)
[2019-01-02] MEDS ORDERED: Iodixanol 320 MG/ML 200 ML BOTTLE IV ONE (09:06)
[2019-01-02] MEDS ORDERED: Iodixanol 320 MG/ML 100 ML BOTTLE IV ONE (09:06)
[2019-01-02] MEDS ORDERED: Lidocaine PF 2% (5 ml) Inj (For Cardiac Arrhy) ONE (09:08)
[2019-01-02] MEDS ORDERED: Midazolam 2 MG/2 ML VIAL ONE ×2 (09:13→09:26)
[2019-01-02] MEDS ORDERED: Eptifibatide 20 mg/10mL Inj IVP ONE (09:19)
[2019-01-02] MEDS ORDERED: Sodium Chloride 0.9% 1,000 ML IV SCH (09:45)
[2019-01-02 10:30] VITALS: RESP 20; TEMP 97.5
--- NOTE | 2019-01-02 14:08 | CARDCATH ---
PROCEDURE DATE: 01/02/2019 HISTORY: The patient is a 58-year-old male, who presents with recurrence of angina. The patient continues to smoke. He has had multivessel PTCA and stent in the past. He underwent a stress test, which was abnormal. A cardiac catheterization was recommended. PROCEDURES: Left heart catheterization with coronary arteriography and left ventriculogram. The right femoral artery was cannulated with a 6-Sami sheath. There were no complications. I performed moderate sedation, which included the presence of an independent trained observer that assisted in monitoring the patient's level of consciousness and physiologic status. After administration of Versed and fentanyl, my intra-service time was 30 minutes. FINDINGS ON CATHETERIZATION: Revealed left ventricle that contracted normally. Estimated ejection fraction of 60%. There was mild inferobasal hypokinesis. The right coronary was a dominant vessel and found to have multiple patent stents. There was multiple 50% lesions in the proximal and midportion of the RCA. The left main artery revealed atherosclerosis without critical lesions. The LAD revealed a patent stent in its proximal portion and diffuse coronary atherosclerosis. There was a ramus intermedius that revealed a patent stent with 50% stenosis in the proximal portion. The circumflex artery revealed a patent stent with diffuse atherosclerosis. AngioSeal was used to close the femoral artery site. The patient tolerated the procedure well. SUMMARY: The procedure revealed normal left ventricular function. Patent stents in the right coronary artery, left anterior descending, ramus intermedius and diagonal vessels. There is multiple 50% stenosis in the right coronary artery as well as a proximal 50% stenosis in the ramus intermedius. Given these findings, the patient's treatment will be continued medical therapy. Once again, I will ask the patient to stop smoking and offered him a smoking cessation program. Deni Shay MD
[2019-01-02 16:47] VITALS: BP 132/70; PULSE 84
== END 2019-01-02 16:30 | disposition home or self-care (01) ==
LOC: CATH 06:17
PROVIDERS: ATTEND Internal Medicine Cardiovascular Disease
DX: I25.118 Atherosclerotic heart disease of native coronary artery with other forms of angina pectoris (principal); F17.200 Nicotine dependence, unspecified, uncomplicated; Z95.5 Presence of coronary angioplasty implant and graft
CPT/HCPCS: 36415; 80048; 85025; 85610; 85730; 86850; 86900; 93458; 99152; C1760; C1769; C2629; J1200; J1644; J2250; J2930; J3010; J7030; Q9966